=== PATIENT | male | born 1945 | race Caucasian/White ===

== ENCOUNTER 2017-01-09 17:54 | Emergency (ER) | payer MEDICARE, MEDICAID ==
[~2017-01-09] VITALS: Ht 167.6 cm; Wt 50.9 kg
[~2017-01-09 17:54] MED LIST: MULT1CAP33 PO; SIMV20TA4 PO
[2017-01-09 17:56] VITALS: BP 156/72; PULSE 106; RESP 20; O2SAT 100
--- NOTE | 2017-01-09 18:29 | DRSVH ---
PROCEDURE: X-RAY CHEST ONE VIEW, PORTABLE ([id number]) INDICATIONS: CHEST PAIN TECHNIQUE: One view of the chest was acquired. COMPARISON: None. FINDINGS: Surgical changes and devices: None. Lungs and pleura: No pleural effusions or pneumothorax. Lungs are clear. Mediastinum: Mediastinal contours appear normal. Heart size is normal. Bones and chest wall: No suspicious bony lesions. Overlying soft tissues appear unremarkable. IMPRESSION: Large lung volumes, no acute disease, source of chest pain is not seen. Dictated by: Schuyler Dexter M.D. on 01/09/2017 at 18:27 Approved by: Schuyler Dexter M.D. on 01/09/2017 at 18:28
--- NOTE | 2017-01-09 18:50 | ED.REPORT ---
HPI-Chest Pain 40 and Over Date of Service Jan 09, 2017 ED Provider: Sami Garcia DO Pt is a 71 y.o. male with a hx of COPD and HLD who presents to the ED c/o chest pain described as dull pressure and SOB onset yesterday. The pain came on while he was walking to the store yesterday. Today he has an ache in his right lateral chest. The area is just below his axilla. The pain is worse with palpation in the area. He does not have any pain when he takes a deep breath. He feels that his COPD he has been well controlled. He is concerned that maybe he cracked a rib while coughing yesterday. Nursing Notes Stated Complaint: CHEST PAIN , SOB Chief Complaint: Chest Pain Nursing Notes Reviewed: Yes Allergies: Coded Allergies: No Known Drug Allergies (Verified Allergy, Unknown, 10/24/16) Scheduled Multivitamin (Multivitamins) 1 Each Capsule 1 EACH PO DAILY Simvastatin (Simvastatin) 20 Mg Tablet 20 MG PO HS General Time Seen by MD: 18:50 Chief Complaint Chest pain, Shortness of breath Hx Obtained From: Patient Arrived By: Walk-in Sudden in Onset?: Yes Onset Occurred: Yesterday Symptom Duration: Since onset Location: : Substernal Quality: Painful, Pressure Radiation: : Does not radiate Severity: Current: Mild Risk Factors )( CAD Risk Stratification Hypertension SmokingNo Cocaine, No Family history Risk factors N/A )( TAD Risk Stratification HypertensionNo 1st degree relative, No Aortic valve disease, No Coarctation of aorta, No Moses-Danlos syndrome, No High intensity wt lifting, No Inflamm dx / vasculitis, No Loeys-Monico syndrome, No Marfan's syndrome, No Other genetic predisp, No Pre-exist aortic aneurysm, No Turners Syndrome Risk factors reviewed )( PE Risk Stratification No Coagulation Disorder, No Estrogen Medicine / BCP's, No Morrow, No Immobilization, No Malignancy, No , No , No Previous DVT, No Previous PE, No Surgery Last 60 Days, No Trauma Risk factors reviewed, No risk factors Past Medical History Past Medical History Notes: PCP: Dr. Loren Good Past Medical History COPD Chronic low back pain Chronic diarrhea Environmental allergies Reports: Hyperlipidemia Past Surgical History Colonoscopy Endoscopy hand surgery thumb amputation Family History Reports: Coronary artery disease Smoking History Former Smoker Social History Alcohol Use: Denies alcohol use Drug Use: Denies drug use Other Social History: Local resident Ambulatory Status Independent Review of Systems Constitutional: Denies: Chills Respiratory: Reports: Shortness of breath Cardiovascular: Reports: Chest pain GI: Denies: Abdominal pain Musculoskeletal: Denies: Back pain, Extremity swelling Skin: Denies Bruising Neurologic: Denies: Lightheaded, Problem walking, Slurred speech, Spinning sensation, Syncope (Near) Psychiatric: Denies: Agitation Complete sys rev & neg: except as marked. Physical Exam Initial Vital Signs Vital Signs (First) Date Time Temp Pulse Resp B/P Pulse Ox O2 Delivery O2 Flow Rate FiO2 01/09/17 17:56 36.2 106 20 156/72 100 Room Air Initial VS: Reviewed Head / Eyes: Atraumatic, Normocephalic Extremities: Vascular intact, Neuro intact Skin: Warm, Dry, No cyanosis Neurologic: Alert, Oriented, Nonfocal Psychiatric: Mood/affect normal, Behavior normal, Normal thought content General/Constitutional: Awake, Alert, No acute distress, Not toxic appearing Respiratory / Chest: Atraumatic, Breath sounds NL, Breath sounds = bilat, No respiratory distress Cardiovascular: Heart rate NL, Regular rhythm, Heart sounds NL, Peripheral circulation NL Abdomen: Atraumatic, No distention Interpretation & Diagnostics Lab Results Interpretation Result Diagram: 01/09/17191901/09/171919 Test 01/09/17 19:20 01/09/17 19:29 01/09/17 23:02 White Blood Count 8.0th/mm3 (3.8-10.1) Red Blood Count 3.80mil/mm3 (4.40-5.80) Hemoglobin 12.6g/dL (13.8-17.2) Hematocrit 37.3% (41.0-50.0) Mean Corpuscular Volume 98.2fL (81-100) Mean Corpuscular Hemoglobin 33.2pg (27.0-35.0) Mean Corpuscular Hemoglobin Concent 33.8% (32.0-37.0) Red Cell Distribution Width 12.8% (12.3-15.4) Platelet Count 234bil/L (150-400) Neutrophils (%) (Auto) 69.7% (40-74) Lymphocytes (%) (Auto) 17.2% (14-46) Monocytes (%) (Auto) 11.6% (4-12) Eosinophils (%) (Auto) 0.7% (0-5) Basophils (%) (Auto) 0.7% (0-3) Sodium Level 138mEq/L (134-144) Potassium Level 4.4mEq/L (3.5-5.2) Chloride Level 99mEq/L (97-108) Carbon Dioxide Level 28mmol/L (18-29) Blood Urea Nitrogen 14mg/dL (8-27) Creatinine 0.95mg/dL (0.76-1.27) Estimat Glomerular Filtration Rate 83mL/min (>59) Glucose Level 102mg/dL (60-99) Calcium Level 8.7mg/dL (8.5-10.1) Magnesium Level 2.0mg/dL (1.6-2.6) Total Bilirubin 0.5mg/dL (0.0-1.2) Aspartate Amino Transf (AST/SGOT) 21U/L (0-50) Alanine Aminotransferase (ALT/SGPT) 13U/L (0-44) Alkaline Phosphatase 67U/L (25-160) Total Protein 6.6g/dL (6.4-8.4) Albumin 4.0g/dL (3.4-5.0) D-Dimer 0.5mg/L (<0.50) Troponin T 0.010ug/L (0.0-0.011) General Lab Results Interp 1: Labs reviewed and NL ECG Interpretation ECG Interpretation: Qwaves V1-V2 which is present on prior ECG Time: 19:04 Interpreted by: ED physician Normal ECG Interpretation: Normal rate (78), Normal sinus rhythm X-Ray Chest Interpretation Chest Xray Interpretation: IMPRESSION: Large lung volumes, no acute disease, source of chest pain is not seen. Dictated by: Schuyler Dexter M.D. on 01/09/2017 at 18:27 Approved by: Schuyler Dexter M.D. on 01/09/2017 at 18:28 Re-Eval/Medical Decision Med Decision/Clinical Course This is a very pleasant 71-year-old male who states that he suffers with nearly daily chest pain. He has been seen in the emergency department numerous times. He has had several CAT scans to rule out pulmonary emboli and so far no pathology has been found. He does share with me that he had a recently normal stress test. The pain seems to be more musculoskeletal than anything else. The pain should first started under his sternum and then radiating to his right arm. He now has pain with range of motion of the right arm as well as palpation of the chest wall. On examination he had this tender spots. He also had some wheezing. He had no signs of aortic dissection. He had symmetric pulses. Symmetric blood pressure. He did not have a murmur. No signs of DVT either. No calf or leg edema. He was medicated with a single Aguilar and a DuoNeb. The DuoNeb was given because he had faint wheeze bilateral. He was observed for 6 hours. Serial troponins were negative. I recommended hospitalization for repeat stress testing. He declines this. He states he really like to go home. He felt much better after medications. His d-dimer 0.5 exactly. He has had CAT scans with a d-dimer size 2.1. No PE then. His d- dimer is coming down. I do not feel that he has any signs or symptoms whatsoever of pulmonary emboli with his d-dimer being right at the negative cut off no further imaging indicated. He concurs with this. He did request a short course the Aguilar for the pain to this helped more than anything. He is provided with a 10 pack of this. I will follow up closely with his primary care physician. Source of Hx: Old records Time of Eval: 18:58 Re-Evaluation/Progress Note: Physical exam performed. Pt states that he would prefer to be discharged home. Time of Eval: 22:56 Re-Evaluation/Progress Note: Pt rechecked. Pt pain has resolved. Pt would like to leave. Discussed plan for discharge, pt understands and agrees with plan. Discharge & Departure Shift Change Sign-Out Response to Therapy: Improved Primary Impression: Acute chest pain Additional Impression: COPD (chronic obstructive pulmonary disease) COPD type: COPD with acute exacerbation Qualified Code: J44.1 - Chronic obstructive pulmonary disease with (acute) exacerbation Disposition: Home Discharge Condition All VS Reviewed: Yes Condition: Stable Patient Instructions: Chest Pain (ED), Costochondritis (ED), Emphysema (ED) Additional Instructions: Your EKG, chest x-ray and heart blood tests were all normal. Your d-dimer is 0.5 and this is the lowest that it has ever been. As we discussed we did not feel that another CAT scan indicated. The pain seems to musculoskeletal in origin. I am happy the Aguilar took care of the pain. You may take 1-2 Aguilar every 6 hours as needed for pain. Even though you have had a recently normal stress test I would like you to call your doctor on Wednesday for a close follow- up.. You may need further evaluation. Do not drive or drink alcohol or consume acetaminophen tonight or while taking the Aguilar. Stay on all of your medications. Do not hesitate to return if any problems or any worsening symptoms. Come right back and the department if you have any further chest pain or any new or worrisome symptoms. Referrals: Loren Good MD (PCP) Scribe Attestation Portions of this note were transcribed by Guru Huerta. I, Dr. Garcia personally performed the history, physical exam and medical decision-making; I reviewed and confirmed the accuracy of the information in the transcribed note. Signed by : Chiki Aguero, 01/09/17 and 2301. copies to: Loren Good MD, Todd P DO Jan 09, 2017 18:50 GURU HUERTA Jan 09, 2017 18:59
[2017-01-09] MEDS ORDERED: HYDROcodone-APAP 5-325 mg Tablet PO ONE (19:00)
[2017-01-09] MEDS ORDERED: Albuterol-Ipratropium 3 mL Inhalation Solution NEB ONE (19:00)
[2017-01-09] MEDS ORDERED: predniSONE 20 mg Tablet PO ONE (19:00)
[2017-01-09 19:34] LABS: BASOPHILS % (AUTO) 0.7 % (0-3); EOSINOPHILS % (AUTO) 0.7 % (0-5); MONOCYTES % (AUTO) 11.6 % (4-12); Mean Corpuscular Hemoglobin 33.2 pg (27.0-35.0); Mean Corpuscular Volume 98.2 fL (81-100); NEUTROPHILS % (AUTO) 69.7 % (40-74); Platelet Count 234 bil/L (150-400)
[2017-01-09 19:51] VITALS: PULSE 79; RESP 14; O2SAT 96
[2017-01-09 19:57] LABS: TROPONIN T < 0.010 ug/L (0.0-0.011)
[2017-01-09 20:30] VITALS: BP 143/54; PULSE 103; RESP 18; O2SAT 97
[2017-01-09 23:46] VITALS: BP 135/52; PULSE 85; RESP 13; O2SAT 96
[2017-01-10] MEDS ORDERED: _HYDROcodone/APAP 5-325 mg Tablet PO PRN (00:50)
[2017-01-10 01:14] VITALS: BP 124/51; PULSE 85; RESP 18; O2SAT 99
== END 2017-01-10 01:15 | disposition home or self-care (01) ==
LOC: EDBD → SED 17:54
DX: R07.9 Chest pain, unspecified (principal); J44.1 Chronic obstructive pulmonary disease with (acute) exacerbation; E78.5 Hyperlipidemia, unspecified; Z87.891 Personal history of nicotine dependence
CPT/HCPCS: 36415; 71010; 80053; 83735; 84484; 85025; 85379; 93005; 94664; 99285; J7620

== ENCOUNTER 2017-03-29 04:25 | Inpatient (IN) | payer MEDICARE, MEDICAID ==
[~2017-03-29] VITALS: Ht 167.6 cm; Wt 52.0 kg
[2017-03-29] VITALS (9 sets, daily range): BP systolic 103–150; BP diastolic 55–73; PULSE 72–97; RESP 15–24; O2SAT 98–99
--- NOTE | 2017-03-29 04:29 | ED.REPORT ---
HPI-General Illness Date of Service March 29, 2017 ED Provider: Ayo Loving MD. Patient is a 72 year old male with a history of COPD who presents to the ED complaining of numbness in his left arm onset 24 hours ago. Associated symptoms include numbness that radiates down his side and up into his face, flashing lights with an aura, headache, vertiginous dizziness, feeling unbalanced, and generalized weakness, but no sided weakness. Denies visual field cuts, denies speech disturbance. He endorses some mild nausea but denies vomiting, chest pain or leg swelling. Nursing Notes Stated Complaint: NUMBNESS IN LEFT ARM,DIZZY,HEADACHE Nursing Notes Reviewed: Yes Allergies: Coded Allergies: No Known Drug Allergies (Verified Allergy, Unknown, 10/24/16) Scheduled Multivitamin (Multivitamins) 1 Each Capsule 1 EACH PO DAILY Simvastatin (Simvastatin) 20 Mg Tablet 20 MG PO HS General Time Seen by MD: 04:28 Chief Complaint Other (numbness of left arm ) Hx Obtained From: Patient Arrived By: Walk-in Sudden in Onset?: Yes Onset Occurred: Just prior to arrival Location: : Arm left Associated with: Reports: Dizziness, Headache Recent Healthcare: No recent hospitalization, Recent doctor visit Past Medical History Past Medical History Notes: PCP: Dr. Loren Good Past Medical History COPD Chronic low back pain Chronic diarrhea Environmental allergies Reports: Hyperlipidemia, Denies: Stroke, Transient ischemic attack Past Surgical History Colonoscopy Endoscopy hand surgery thumb amputation Family History Reports: Coronary artery disease Smoking History Former Smoker Social History Alcohol Use: Denies alcohol use Drug Use: Denies drug use Other Social History: Local resident Ambulatory Status Independent Review of Systems unbalanced Full Review of Systems Respiratory: Denies: Non-productive cough, Shortness of breath Cardiovascular: Denies: Chest pain, Edema GI: Denies: Nausea Musculoskeletal: Denies: Extremity swelling Neurologic: Reports: Dizziness, Headache, Numbness (of left arm ), Weakness Complete sys rev & neg: except as marked. Physical Exam Vital Signs Vital Signs Date Time Temp Pulse Resp B/P Pulse Ox O2 Delivery O2 Flow Rate FiO2 03/29/17 04:44 86 24 140/68 98 Room Air 03/29/17 04:36 36.7 97 15 142/73 99 Room Air Initial VS: Reviewed General/Constitutional: Well-developed, Well-nourished Head / Eyes: Atraumatic, Normocephalic, PERRL ENT: Mucous membranes moist, Conjunctiva normal, No scleral icterus Neck: Supple, Non-tender, Full range of motion Respiratory: Breath sounds normal, Clear to auscultation, No respiratory distress Cardiovascular: Regular rate & rhythm, Heart sounds normal, Intact distal pulses Abdomen / GI: Soft, Non-tender, No guarding, No rebound, No distention Back: No CVA tenderness Lymphatic: No lymphadenopathy Extremities: Vascular intact, Neuro intact, No swelling, No tenderness Skin: Warm, Dry, No cyanosis Neurologic: Alert, Oriented, Nonfocal Psychiatric: Mood/affect normal, Behavior normal, Normal thought content General/Constitutional: Awake, Alert Head / Eyes: Atraumatic, Normocephalic, PERRL, EOMI Respiratory / Chest: Atraumatic, Breath sounds NL, Breath sounds = bilat, No respiratory distress Cardiovascular: Heart rate NL, Regular rhythm, Heart sounds NL Abdomen: Atraumatic, Soft Tenderness/Guarding/Rebound: Positive: Tender diffuse Upper Extremities Upper Extremity / MS: Atraumatic, Full range of motion Lower Extremity / Pelvis / MS: Atraumatic, Full range of motion Skin: Atraumatic, Color NL, No rash, Warm, Dry Neurologic: Oriented X3, Speech NL, No motor deficits, No sensory deficits Psychiatric: Affect NL, Mood NL NIH Stroke Scale Level of Consciousness: Alert and responsive (0) Ask Month & Age: Both questions right (0) Open/Close Eyes/Hand Art Teacher: Performs both tasks (0) Horizontal EO Movements: None (0) Visual Garcia: No visual loss (0) Facial Palsy: Normal symmetry (0) Right Arm Motor Drift (10s): No drift 10 sec (0) Left Arm Motor Drift (10s): No drift 10 sec (0) Right Leg Motor Drift (5s): No drift 5 sec (0) Left Leg Motor Drift (5s): No drift 5 sec (0) Limb Ataxia FNF/Heel-Moses: No ataxia (0) Sensation (Arms/Legs/Face): P-prick dull but felt (1) Language Aphasia: No aphasia, normal (0) Dysarthria: No dysarthria, normal (0) Extinction/Inattention: No exctinct/inattent (0) NIHSS Score: 0 Time NIHSS Performed: 05:10 Date NIHSS Performed: March 29, 2017 Interpretation & Diagnostics Lab Results Interpretation Result Diagram: 5/15/17 0440 03/29/17 0440 Test 03/29/17 04:40 03/29/17 05:50 White Blood Count 8.6th/mm3 (3.8-10.1) Red Blood Count 4.44mil/mm3 (4.40-5.80) Hemoglobin 14.5g/dL (13.8-17.2) Hematocrit 43.1% (41.0-50.0) Mean Corpuscular Volume 97.1fL (81-100) Mean Corpuscular Hemoglobin 32.7pg (27.0-35.0) Mean Corpuscular Hemoglobin Concent 33.6% (32.0-37.0) Red Cell Distribution Width 12.7% (12.3-15.4) Platelet Count 264bil/L (150-400) Neutrophils (%) (Auto) 65.7% (40-74) Lymphocytes (%) (Auto) 20.0% (14-46) Monocytes (%) (Auto) 12.7% (4-12) Eosinophils (%) (Auto) 0.7% (0-5) Basophils (%) (Auto) 0.8% (0-3) Hold Purple Top Tube Received (Received) Prothrombin Time 10.4sec (8.1-12.5) Prothromb Time International Ratio 0.97ratio Activated Partial Thromboplast Time 24.7sec (22.8-33.0) Hold Blue Top Tube Received (Received) Sodium Level 139mEq/L (134-144) Potassium Level 4.3mEq/L (3.5-5.2) Chloride Level 99mEq/L (97-108) Carbon Dioxide Level 23mmol/L (18-29) Blood Urea Nitrogen 25mg/dL (8-27) Creatinine 1.01mg/dL (0.76-1.27) Estimat Glomerular Filtration Rate 77mL/min (>59) Glucose Level 110mg/dL (60-99) Calcium Level 9.8mg/dL (8.5-10.1) Total Bilirubin 0.6mg/dL (0.0-1.2) Aspartate Amino Transf (AST/SGOT) 28U/L (0-50) Alanine Aminotransferase (ALT/SGPT) 13U/L (0-44) Alkaline Phosphatase 77U/L (25-160) Troponin T 0.010ug/L (0.0-0.011) Total Protein 7.7g/dL (6.4-8.4) Albumin 4.3g/dL (3.4-5.0) Hold Red Top Tube Received (Received) Hold [place] Top Tube Received (Received) Hold [place] Top Tube Received (Received) Alcohols < 10mg/dL (0-10) Urine Color Yellow (YELLOW) Urine Appearance Clear (CLEAR,HAZY) Urine pH 6.0 (5.0-8.0) Urine Specific [place] 1.020 (1.003-1.035) Urine Protein Negativemg/dL (NEG,TRACE) Urine Glucose (UA) Negativemg/dL (NEGATIVE) Urine Ketones Negativemg/dL (NEGATIVE) Urine Occult Blood Negative (NEGATIVE) Urine Nitrite Negative (NEGATIVE) Urine Bilirubin Negative (NEGATIVE) Urine Urobilinogen Normalmg/dL (NORMAL) Urine Leukocyte Esterase Negative (NEGATIVE) Urine RBC 0-2/hpf (0-2) Urine WBC 0-5/hpf (0-5) Urine Epithelial Cells None/hpf (NONE-MOD) Urine Crystals None seen (NONE SEEN) Urine Bacteria None/hpf (NONE-FEW) Urine Hyaline Casts None/lpf (NONE) Urine Granular Casts None seen (NONE SEEN) Urine Waxy Casts None seen (NONE SEEN) Urine Red Blood Cell Casts None seen (NONE SEEN) Urine White Blood Cell Casts None seen (NONE SEEN) Urine Mucus None seen (None Seen) Urine Trichomonas None seen (NONE SEEN) Urine Yeast None (NONE SEEN) Urinalysis Comment None Urine Culture Reflexed Not indicated Urine Opiates Screen Negative Urine Methadone Screen Negative Urine Barbiturates Screen Negative Urine Amphetamines Screen Negative Urine Benzodiazepines Screen Negative Urine Cocaine Metabolite Screen Negative Urine Cannabinoids Screen Negative ECG Interpretation ECG Interpretation: old anteroseptal infarct Time: 05:08 Interpreted by: ED physician Normal ECG Interpretation: Normal rate (78), Normal sinus rhythm CT Head Interpretation CONCLUSION: No acute abnormality. Chronic micro vascular ischemic disease and volume loss. at 0572 Study: Head CT no contrast Interpretation / Wet Read by: Interpret - Radiologist Re-Eval/Medical Decision Med Decision/Clinical Course 72-year-old presents with twenty-four hours of hemisensory loss in the left without motor signs. He has also some vertigo and no visual field cuts. He had some bright scotomata that were spreading and very typical of migrainous aura, but other symptoms are not typical migraine. He does have some moderate headache. CT is negative. MR is pending at this time. Persistent symptoms past twenty-four hours more suggestive of TIAs and migraine. Aura type symptoms may have been precipitated by neurologic injury, rather than causal. Admitted to medicine service for further evaluation and management, MRA protocol pending. 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 I, Dr. Loving personally performed the history, physical exam and medical decision-making; I reviewed and confirmed the accuracy of the information in the transcribed note. Signed by: Chiki Brody, 03/29/17 at 0454 copies to: Loren Good MD, Christopher W MD March 29, 2017 04:28 Liliana Tomas March 29, 2017 04:37
[2017-03-29 05:06] LABS: BASOPHILS % (AUTO) 0.8 % (0-3); EOSINOPHILS % (AUTO) 0.7 % (0-5); MONOCYTES % (AUTO) 12.7 % (4-12); Mean Corpuscular Hemoglobin 32.7 pg (27.0-35.0); Mean Corpuscular Volume 97.1 fL (81-100); NEUTROPHILS % (AUTO) 65.7 % (40-74); Platelet Count 264 bil/L (150-400)
[2017-03-29 05:13] LABS: INR 0.97 ratio
[2017-03-29 06:16] LABS: APPEARANCE,URINE CLEAR (CLEAR,HAZY); COLOR,URINE YELLOW (YELLOW); OCCULT BLOOD,URINE NEGATIVE (NEGATIVE); UROBILINOGEN,URINE NORMAL (NORMAL)
--- NOTE | 2017-03-29 07:40 | DRSVH ---
PROCEDURE: CT BRAIN WITHOUT CONTRAST ([id number]) INDICATIONS: headache, left numb TECHNIQUE: Noncontrast 4.5 mm thick angled axial sections acquired from the foramen magnum to the vertex, with c oronal reformats. COMPARISON: [facility], CT, CT ANGIO CHEST PE, 10/24/2016, 18:13. FINDINGS: Image quality: Excellent. CSF spaces: Basal cisterns are patent. No extra-axial fluid collections. Ventricles are normal in size and shape. Brain: No midline shift. No intracranial masses or hemorrhage. Santana-white matter interface is norm al. Skull and face: Calvarium and visualized facial bones are intact, without suspicious lesions. Sinuses: Visualized sinuses and mastoids are clear. IMPRESSION: Normal head CT for the patient's age. No discrepancies with the pulmonary report. Dictated by: Ayo Pham M.D. on 03/29/2017 at 7:32 Approved by: Ayo Pham M.D. on 03/29/2017 at 7:33
--- NOTE | 2017-03-29 08:57 | DRSVH ---
PROCEDURE: MRI STROKE PROTOCOL ([id number]) Pre- and post-contrast brain MRI, non-contrast brain MR angiogram, pre- and postcontrast neck MR rahat ogram INDICATIONS: posterior circulation stroke sx (left hemisensory) TECHNIQUE: Brain: Noncontrast axial T1 spin echo, axial T2 fast spin echo, sagittal and axial FLAIR, coronal T2 fast spin echo, axial gradient echo, axial diffusion and ADC through the brain. After the administr ation of contrast, axial 3D VIBE of the cranial vasculature and brain. Brain MRA: Non-contrast 3-D time of flight MR angiogram, with multiple vivawwb-wopnhxfmx-neafupnyfs (MIP) reformats performed. Neck MRA: Axial and sagittal TruFISP through the neck. Coronal dynamic MR angiogram during administ ration of contrast in the arterial and venous phases, with 3-dimenstional iguskct-rubfvibdi-zigymqvug n (MIP) reformats constructed from subtraction images. COMPARISON: [facility], CT, CT BRAIN WO CON, 03/29/2017, 5:17. FINDINGS: Image quality: Excellent. BRAIN: CSF spaces: Ventricles are normal in size and shape. Basal cisterns are patent. No extra-axial flu id collections. Brain: No intracranial bleeds or mass effects. There are scattered white matter signal changes, whic h are nonspecific however statistically represent chronic microvascular ischemic disease. Santana-white matter interface is normal. There are punctate (approximately 3) areas of restricted diffusion involv ing the right posterior occipital lobe, for example image 55 series 3. Brainstem appears normal. Normal intravascular flow voids are present. No abnormal intracranial enh ancement. Skull and face: Calvarial marrow signal is normal. Orbits appear normal. Sinuses: Mastoids are clear. 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 There is d iffuse narrowing of the left A1 segment presumably congenital atresia, versus atherosclerotic narrowi ng although appears patent on source images. The flow within the paired anterior cerebral arteries is normal and symmetric. The flow within the middle cerebral arteries is normal and symmetric. The anterior communicating artery is seen. No naty noses, occlusions, or aneurysms. Posterior circulation: The visualized portions of the vertebral arteries demonstrate normal caliber, and join to form a normal appearing basilar artery. The right P2 segment demonstrates diffuse narro wing and eventual occlusion. The left posterior cerebral artery appears grossly patent NECK MR ANGIOGRAM: Carotids: Great vessels demonstrate a conventional anatomy as they arise from the aortic arch. The origins of the common carotid arteries appear patent. The calibers and courses of both common caroti d arteries are normal. 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 The left anterior and posterior communicating arteries are visualized and patent presum ably reconstituting the left middle cerebral artery (left A1 segment narrowing as above). Posterior circulation: The origins of the vertebral arteries appear patent although high-grade focal stenosis of the origin of the left vertebral artery. The origin of the right vertebral artery appear s widely patent on source images. There is diffuse atherosclerotic narrowing of the vertebral arteries bilaterally, right greater than left. Normal appearing basilar artery. Miscellaneous: Subclavian arteries appear patent. Pre-contrast images through the neck show no soft tissue abnormalities. IMPRESSION: BRAIN MRI: Multiple, punctate areas of acute ischemia involving the right occipital lobe. BRAIN MR ANGIOGRAM: Occlusion of the right P2 segment. NECK MR ANGIOGRAM: Occlusion of the left internal carotid artery extending from the proximal segment just after the bifurcation, to the intracranial segment. Reconstitution of the left middle cerebral a rtery through anterior and posterior communicating arteries as detailed above. Narrowing and occlusion of the left P2 segment of the posterior cerebral artery. High-grade focal stenosis of the origin of the left vertebral artery. Diffuse atherosclerotic narrowing of the vertebral arteries bilaterally. The estimate of stenosis included in the report of the imaging study was calculated using the NASCET method Dictated by: Tone Hdez M.D. on 03/29/2017 at 8:35 Approved by: Tone Hdez M.D. on 03/29/2017 at 8:56
[2017-03-29] MEDS ORDERED: Alum-Mag Hydrox-Simeth 30 mL Suspension PO PRN ×2 (09:45→13:05)
[2017-03-29] MEDS ORDERED: Ondansetron 2 mg/mL 2 mL Inj IVPUSH PRN ×2 (09:45→13:05)
--- NOTE | 2017-03-29 11:03 | PCM.HPMED ---
Subjective Date of Service March 29, 2017 Primary Provider: Admitting Physician: Lilliana Nguyen DO Primary Care Physician: Lroen Good MD Attending Physician: Lilliana Nguyen DO Allergies Coded Allergies: No Known Drug Allergies (Verified Allergy, Unknown, 10/24/16) PMH Social History Hx Alcohol Use: No Hx Substance Use: No Smoking Status: Former Smoker Exam Vital Signs Vital Sign - Last Date Time Temp Pulse Resp B/P Pulse Ox O2 Delivery O2 Flow Rate FiO2 03/29/17 09:45 36.8 74 16 135/72 99 Room Air Lab and Diagnostics Result Diagram: 03/29/1743903/29/17439 Assessment & Plan HPI: Patient is a 72-year-old male who presents to the hospital with the complaint of left-sided arm and leg numbness and tingling and seeing spots since yesterday. The patient stated that when he woke up yesterday morning he is having left-sided arm numbness and tingling and thought that he slept on his arm wrong however as the day progressed the numbness and tingling did not dissipate and then he started to have numbness and tingling in his left leg and he started having visual changes by seeing spots. The patient then decided to come into the emergency room. At that time CT scan and MRI were done and the patient was found to have a CVA. The patient has a history of hyperlipidemia however the patient states that he used to take simvastatin however he decided to take himself off of the statin without telling his doctor. 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 Please see HPI for pertinent positives, all other systems are negatives. Physical Exam: GEN: Patient was awake, alert, responding appropriately to questions HEENT: Pupils equal round and reactive to light, extraocular eye muscles intact , Neck soft supple, trachea midline, nomocephalic/atraumatic CV: +S1/S2, regular rate and rhythm, no murmur auscultated Respiratory: CTAB, no wheezes, rales, rhonchi GI: +bowel sounds x4, soft, compressible, nontender to palpation EXT: no clubbing, cyanosis, edema Neuro: Cranial nerves II-XII grossly intact Psych: mood and affect were appropriate Assessment and Plan 72-year-old male who presents with CVA CVA -Start aspirin 81 mg daily -Start Plavix 75 mg daily -Follow up lipid panel -10 mg of atorvastatin have been started will increase if necessary based on patient's lipid panel -Consult neurology if available -PT/OT consult -Echo pending -MR brain and neck Diet: Heart healthy DVT prophylaxis: Aspirin and Plavix Code Status: Full code Disposition: Due to the nature of the patient's current diagnosis anticipated stay is greater than 2 midnight Resuscitation Status: CPR: Attempt Resuscitation Lilliana Nguyen DO March 29, 2017 11:03
[2017-03-29] MEDS: 0.9% Sodium Chloride 1,000 ML IV SCH ×2 (11:04→22:17)
[2017-03-29] MEDS ORDERED: CHOL500051 PO (12:09)
[2017-03-29] MEDS ORDERED: hydrALAZINE 20 mg/mL Inj IVPUSH PRN (13:05)
[2017-03-29] MEDS ORDERED: Polyethylene Glycol (PEG) 17 Gm Powder PO PRN (13:05)
[2017-03-30] VITALS (8 sets, daily range): BP systolic 124–160; BP diastolic 63–74; PULSE 69–85; RESP 16–18; O2SAT 98–100
[2017-03-30 07:01] LABS: Mean Corpuscular Hemoglobin 32.6 pg (27.0-35.0); Mean Corpuscular Volume 99.1 fL (81-100)
[2017-03-30] MEDS: 0.9% Sodium Chloride 1,000 ML IV SCH ×2 (09:06→19:20)
--- NOTE | 2017-03-30 16:52 | PCM.PNMED ---
Subjective Date of Service March 30, 2017 Subjective Patient was seen and examined at bedside today. Patient denies any chest pain, shortness of breath, nausea, vomiting, diarrhea. Patient states that his paresthesias in his left arm and lower leg have improved significantly and the hallucinations and seeing of spots have improved as well. Overnight events: None Exam Vital Signs Vital Sign - Last Date Time Temp Pulse Resp B/P Pulse Ox O2 Delivery O2 Flow Rate FiO2 03/30/17 12:35 36.6 76 18 138/69 100 Room Air Intake and Output 03/29/17 03/29/17 03/30/17 Cumulative From/Thru 15:00 23:00 07:00 03/29/17 04:36 - 03/30/17 05:34 Intake Total 1575 ml 747 ml 2322 ml Output Total 945 ml 945 ml Balance 630 ml 747 ml 1377 ml Intake Oral 650 ml 650 ml IV Total 925 ml 747 ml 1672 ml Output Urine Total 945 ml 945 ml # Bowel Movements 1 1 Exam Physical Exam: GEN: Patient was awake, alert, responding appropriately to questions HEENT: Pupils equal round and reactive to light, extraocular eye muscles intact , Neck soft supple, trachea midline, nomocephalic/atraumatic CV: +S1/S2, regular rate and rhythm, no murmurs auscultated Respiratory: CTAB, no wheezes, rales, rhonchi GI: +bowel sounds x4, soft, compressible, nontender to palpation EXT: no clubbing, cyanosis, edema Neuro: Cranial nerves II-XII grossly intact, 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, 5/5 lower extremity and upper extremity strength, negative heel to umaña test, negative finger to nose test, equal sensation in the upper extremity bilaterally Psych: mood and affect were appropriate IVs and Medications Medications Reviewed: Medications were reviewed in detail Lab and Diagnostics Laboratory Tests 72 Hours Test 03/29/17 04:40 03/29/17 05:50 03/30/17 06:02 White Blood Count 8.6th/mm3 (3.8-10.1) 7.3th/mm3 (3.8-10.1) Red Blood Count 4.44mil/mm3 (4.40-5.80) 4.30mil/mm3 (4.40-5.80) Hemoglobin 14.5g/dL (13.8-17.2) 14.0g/dL (13.8-17.2) Hematocrit 43.1% (41.0-50.0) 42.6% (41.0-50.0) Mean Corpuscular Volume 97.1fL (81-100) 99.1fL (81-100) Mean Corpuscular Hemoglobin 32.7pg (27.0-35.0) 32.6pg (27.0-35.0) Mean Corpuscular Hemoglobin Concent 33.6% (32.0-37.0) 32.9% (32.0-37.0) Red Cell Distribution Width 12.7% (12.3-15.4) 13.1% (12.3-15.4) Platelet Count 264bil/L (150-400) 254bil/L (150-400) Neutrophils (%) (Auto) 65.7% (40-74) Lymphocytes (%) (Auto) 20.0% (14-46) Monocytes (%) (Auto) 12.7% (4-12) Eosinophils (%) (Auto) 0.7% (0-5) Basophils (%) (Auto) 0.8% (0-3) Hold Purple Top Tube Received (Received) Prothrombin Time 10.4sec (8.1-12.5) Prothromb Time International Ratio 0.97ratio Activated Partial Thromboplast Time 24.7sec (22.8-33.0) Hold Blue Top Tube Received (Received) Sodium Level 139mEq/L (134-144) 141mEq/L (134-144) Potassium Level 4.3mEq/L (3.5-5.2) 4.4mEq/L (3.5-5.2) Chloride Level 99mEq/L (97-108) 103mEq/L (97-108) Carbon Dioxide Level 23mmol/L (18-29) 27mmol/L (18-29) Blood Urea Nitrogen 25mg/dL (8-27) 20mg/dL (8-27) Creatinine 1.01mg/dL (0.76-1.27) 0.79mg/dL (0.76-1.27) Estimat Glomerular Filtration Rate 77mL/min (>59) 102mL/min (>59) Glucose Level 110mg/dL (60-99) 95mg/dL (60-99) Hemoglobin A1c 5.0% (4.8-5.6) Calcium Level 9.8mg/dL (8.5-10.1) 9.3mg/dL (8.5-10.1) Total Bilirubin 0.6mg/dL (0.0-1.2) 0.6mg/dL (0.0-1.2) Aspartate Amino Transf (AST/SGOT) 28U/L (0-50) 22U/L (0-50) Alanine Aminotransferase (ALT/SGPT) 13U/L (0-44) 10U/L (0-44) Alkaline Phosphatase 77U/L (25-160) 72U/L (25-160) Troponin T 0.010ug/L (0.0-0.011) Total Protein 7.7g/dL (6.4-8.4) 7.0g/dL (6.4-8.4) Albumin 4.3g/dL (3.4-5.0) 4.1g/dL (3.4-5.0) Triglycerides Level 63mg/dL (0-149) Cholesterol Level 252mg/dL (100-199) LDL Cholesterol, Calculated 188.400mg/dL (0-99) VLDL Cholesterol 12.600mg/dL HDL Cholesterol 51mg/dL (>39) Cholesterol/HDL Ratio 4.94 (0.0-4.4) Hold Red Top Tube Received (Received) Hold [place] Top Tube Received (Received) Hold [place] Top Tube Received (Received) Alcohols < 10mg/dL (0-10) Urine Color Yellow (YELLOW) Urine Appearance Clear (CLEAR,HAZY) Urine pH 6.0 (5.0-8.0) Urine Specific [place] 1.020 (1.003-1.035) Urine Protein Negativemg/dL (NEG,TRACE) Urine Glucose (UA) Negativemg/dL (NEGATIVE) Urine Ketones Negativemg/dL (NEGATIVE) Urine Occult Blood Negative (NEGATIVE) Urine Nitrite Negative (NEGATIVE) Urine Bilirubin Negative (NEGATIVE) Urine Urobilinogen Normalmg/dL (NORMAL) Urine Leukocyte Esterase Negative (NEGATIVE) Urine RBC 0-2/hpf (0-2) Urine WBC 0-5/hpf (0-5) Urine Epithelial Cells None/hpf (NONE-MOD) Urine Crystals None seen (NONE SEEN) Urine Bacteria None/hpf (NONE-FEW) Urine Hyaline Casts None/lpf (NONE) Urine Granular Casts None seen (NONE SEEN) Urine Waxy Casts None seen (NONE SEEN) Urine Red Blood Cell Casts None seen (NONE SEEN) Urine White Blood Cell Casts None seen (NONE SEEN) Urine Mucus None seen (None Seen) Urine Trichomonas None seen (NONE SEEN) Urine Yeast None (NONE SEEN) Urinalysis Comment None Urine Culture Reflexed Not indicated Urine Opiates Screen Negative Urine Methadone Screen Negative Urine Barbiturates Screen Negative Urine Amphetamines Screen Negative Urine Benzodiazepines Screen Negative Urine Cocaine Metabolite Screen Negative Urine Cannabinoids Screen Negative Result Diagram: 03/30/1760103/30/17601 X-Rays, CTs and MRIs PROCEDURE: MRI STROKE PROTOCOL ([id number]) Pre- and post-contrast brain MRI, non-contrast brain MR angiogram, pre- and postcontrast neck MR angiogram IMPRESSION: BRAIN MRI: Multiple, punctate areas of acute ischemia involving the right occipital lobe. BRAIN MR ANGIOGRAM: Occlusion of the right P2 segment. NECK MR ANGIOGRAM: Occlusion of the left internal carotid artery extending from the proximal segment just after the bifurcation, to the intracranial segment. Reconstitution of the left middle cerebral artery through anterior and posterior communicating arteries as detailed above. Narrowing and occlusion of the left P2 segment of the posterior cerebral artery. High-grade focal stenosis of the origin of the left vertebral artery. Diffuse atherosclerotic narrowing of the vertebral arteries bilaterally. The estimate of stenosis included in the report of the imaging study was calculated using the NASCET method Dictated by: Tone Hdez M.D. on 03/29/2017 at 8:35 Approved by: Tone Hdez M.D. on 03/29/2017 at 8:56 Assessment & Plan 72-year-old male who presents with CVA CVA most likely secondary to hyperlipidemia -Start aspirin 81 mg daily -Start Plavix 75 mg daily - Atorvastatin 80 mg daily at bedtime -Consult neurology (Dr. Mulligan) -PT/OT consult -Echo pending -MR brain and neck (completed) Hyperlipidemia -Total cholesterol 252, LDL cholesterol 188 -Continue atorvastatin 80 mg daily at bedtime -We will monitor the patient for adverse side effects from the medication Diet: Heart healthy DVT prophylaxis: Aspirin and Plavix Code Status: Full code Disposition: The patient was discussed with Dr. Mulligan today who states that the patient at this point should only need aspirin and Plavix for the next 3 months and then be decreased only to aspirin. She will come and see the patient later today. The patient seems to be stable and pending the results of his echo the patient should be able to be discharged home tomorrow. Resuscitation Status: CPR: Attempt Resuscitation Lilliana Nguyen DO March 30, 2017 16:52
--- NOTE | 2017-03-30 16:54 | DRSVH ---
[facility] [address] [place] [address] Echocardiogram Report Name: BILL NGUYEN RStudy Date: 03/30/2017 Height: 66 in Hospital Exam Location: [facility] Weight: 109 lb Gender: Male BSA: 1.5 m2 : 1945 Age: 72 yrs BP: 103/55 mmHg Reason For Study: CVA Ordering Physician: Performed By: Mulu Freedman Interpretation Summary The left ventricle is normal in size. There is no LV thrombus. The ejection fraction is estimated to be 60-65%. The right ventricle is normal in size and function. There is discrete nodular, calcified thickening of the non- coronary cusp. It is not mobile. It is not pedunculated. There is no aortic valve stenosis. No aortic regurgitation is present. The ascending aorta is mildly enlarged. Procedure: A two-dimensional transthoracic echocardiogram with color flow and Doppler was performed. The study quality was technically adequate. There is no prior echocardiogram noted for this patient. The patient was in normal sinus rhythm during the exam. Left Ventricle: The left ventricle is normal in size. Proximal septal thickening is noted. There is no echo evidence for significant left ventricular outflow tract obstruction. A false chord is noted (normal variant). There is no thrombus. The ejection fraction is estimated to be 60- 65%. There are no focal wall motion abnormalities. Spectral Doppler of the mitral valve is reversed, with an E/A wave ratio < 1.0. Right Ventricle: The right ventricle is normal in size and function. Atria: Both atria are normal in size. There is no Doppler evidence for an interatrial shunt. Mitral Valve: The mitral valve leaflets are slightly calcified. The mitral valve leaflets appear thickened, but open well. There is mild mitral annular calcification. There is mild mitral regurgitation. Aortic Valve: There is discrete nodular thickening of the non- coronary cusp. The aortic valve is trileaflet. The aortic valve opens well. There is no aortic valve stenosis. No aortic regurgitation is present. Tricuspid Valve: The tricuspid valve is normal in structure and function. There is mild tricuspid regurgitation. The right ventricular systolic pressure is estimated at 23 mmHg assuming a right atrial pressure of 3 mm Hg. Pulmonic Valve: The pulmonic valve is not well seen, but is grossly normal. There is trace pulmonic regurgitation. Great Vessels: The aortic root is normal size. The ascending aorta is mildly enlarged. The aortic arch is normal in size. The IVC is of normal diameter and collapses greater than 50% with a sniff. This suggests a low right atrial pressure of 3 mm Hg. Pericardium/ Pleura There is no pericardial effusion. MMode/2D Measurements & Calculations LVIDd: 4.3 cm RA long axis LVOT diam: 2.3 cm LVIDs: 2.2 cm LA A2 area: 14.3 cm Ao root diam FS: 49.0 % LA A4 area: 12.1 cm RA area EPSS: 0.38 cm LA length (vol) Aortic Jxn: 2.8 cm IVSd: 0.64 cm : 10.9 cm asc Aorta Diam LVPWd: 0.81 cm LA vol: 40.6 ml RA vol LA vol index : 23.4 ml Ao Arch Diam (Prox RA Trans): 3.0 cm : 15.2 mm2 IVC diam: 1.2 cm LV johnson. diameter/BSA LV sys. diameter/BSA RVD1 (basal) (cm/m^2): 2.8 (cm/m^2): 1.4 Doppler Measurements & Calculations Ao V2 max MV E max marco a MV E/A: 0.77 TR max marco a : 113.7 cm/sec : 67.7 cm/sec Med Peak E' Marco A : 222.5 cm/sec Ao max PG MV A max marco a TR max PG : 5.2 mmHg : 87.4 cm/sec E/E' med: 9.1 : 19.8 mmHg Ao mean PG MV P1/2t: 84.7 msec MV A dur: 0.12 sec PA V2 max : 92.3 cm/sec LVOT Max Marco A PA mean PG : 83.2 cm/sec PA Accel Time CHANELLE(I,D): 3.2 cm : 0.13 sec sev ratio MV dec time MV P1/2t max marco a Ao V2 mean LV V1 max PG : 0.29 sec : 79.3 cm/sec MVA(P1/2t): 2.6 cm2 Ao V2 VTI: 26.8 cm LV V1 VTI CHANELLE(V,D): 3.0 cm2 : 20.6 cm PA V2 mean CHANELLE indexed to BSA : 67.8 cm/sec (cm^2/m^2): 2.0 Reading Physician:PM
--- NOTE | 2017-03-30 23:07 | CONS ---
[address] [address] CONSULTATION REPORT PATIENT: BILL NGUYEN : 1945 MR#: [id number] ADMIT: 03/29/2017 JOB ID: [id number] DATE OF SERVICE: 03/30/2017 REQUESTING P HYPERTENSION: Lilliana Nguyen D.O. for acute stroke. HISTORY OF PRESENT ILLNESS: The patient is a 72-year-old gentleman with acute onset of left-sided paresthesias and vision changes on March 28. At that time, he thought potentially his blood sugar was low, so he drank some Power Aid and ate some cookies and symptoms seemed to improve, however, the returned. He describes both arm and leg and possibly facial involvement with paresthesias. He did not report any weakness. He states that the vision change started with an enlarging central dark space when a central light like lightning occurred. This seemed to come and go. Although he was concerned about his symptoms, he did not seek urgent medical attention and instead called his sister before she left for work at about 1 a.m. on Wednesday. He was transported to [facility] where he was appropriately evaluated for acute stroke. Given the length of time since the onset of symptoms, he was deemed not a candidate for tPA. Subsequent MRI of the brain with MR angiogram revealed evidence of punctate diffusion-weighted abnormalities in the right occipital lobe consistent with acute stroke. MR angiography showed occlusion of the left internal carotid artery and 50% stenosis on the right. The patient admits that he was supposed to be taking Plavix and simvastatin but stopped doing both due to cost. He is followed by Dr. Toya Daugherty as an outpatient for cardiology. 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 At some point, that was to be stented. He also reports cataract surgery for the right eye and a severe cataract over the left eye that he has not yet had surgery for. He states that friends talked him out of having a stent put in. He has not returned for cataract surgery. The patient reports a nearly 40 pound weight loss, which is unexplained. He has chronic diarrhea. He has had a colonoscopy which he reports was negative, but he has not been seen by a cane feeder. Although his primary care doctor, Dr. Loren Good, recommended a healthy diet, he reports difficulty doing so due to his current living arrangement where he only is supposed to cook in a microwave. He admits to a poor diet as a result. He has not been physically active because of the diarrhea problem. He states that he cannot be that far from the toilet. He reports that his primary care physician told him to eat better and that was the cause of his diarrhea. Echocardiogram was completed and found to show no abnormalities. The patient's cholesterol levels were elevated with LDL cholesterol 188, HDL 51. Glucose was slightly elevated at 110, otherwise CBC, comprehensive metabolic panel, UA, coagulation profile and tox screen were all negative. Since being admitted to the hospital, the patient has been experiencing bizarre hallucinations that are all visual. He has seen a woman in a [employer] dot dress dancing. He has seen lines of Packmen. He has seen a parrot that begins small and enlarges. Some of these are frightening, making him not want to close his eyes. They have become less severe and less persistent. He has not closed one eye or the other to see if they persist, but they seem to persist with his eyes closed as well. He has never heard any one speak to him and reports that he has never had hallucinations previously. Dr. Nguyen requested a neurology consultation based on the imaging study results particularly the high-grade stenosis noted in multiple vessels and the complete occlusion of the left internal carotid artery. MR angiogram showed, in addition, high-grade stenosis at the origin of the left vertebral artery and diffuse atherosclerotic narrowing in multiple vessels. PAST MEDICAL HISTORY: As above. Also, chronic low back pain, chronic diarrhea with weight lost, elemental allergies, hyperlipidemia, no history of prior stroke. SOCIAL HISTORY: No drugs, alcohol or substance abuse but past substance abuse and past cigarette smoking, none currently. FAMILY HISTORY: Coronary artery disease. REVIEW OF SYSTEMS: Patient continues to have paresthesias and resolving hallucinations. All other systems were reviewed and reported as negative. DRUG ALLERGIES: No known drug allergies. MEDICATIONS: 1. Lisinopril 5 mg. 2. IV fluids. 3. 81 mg aspirin. 4. 75 mg Plavix. 5. Vitamin D 5000 international units. 6. Multivitamins. 7. Acetaminophen. 8. Labetalol. 9. Hydralazine. 10. Atorvastatin 40 mg. 11. Plus p.r.n.'s. PHYSICAL EXAMINATION: The patient is pleasant and cooperative with extensive facial hair. Vital signs: Blood pressure 131/66, respiratory rate 18, pulse 78, temperature afebrile, pulse oximetry 98% on room air. Telemetry shows sinus rhythm. Head: Normocephalic, atraumatic. No evidence of carotid bruits. Lungs clear to auscultation. Cardiac: Regular rate and rhythm. S1, S2 present. No edema or lesions noted in the lower extremities. NEUROLOGIC EXAMINATION: Patient is alert and oriented x3, with language and speech intact and fluent. No evidence of memory impairment, recent and remote memory. Fund of knowledge evaluated and found to be intact. Mood is euthymic. Cranial nerves: Pupils are equally reactive to light and accommodation. Extraocular movements are intact. Funduscopic examination shows dense cataract in the left eye. EOL in right eye. No facial asymmetry. Sensation shows decreased pinprick on the left side of his face compared to the right. No facial asymmetry. Tongue midline. Palate raises symmetrically. SCM and shoulder shrug as well as hearing appear to be intact. Motor strength: Intact upper and lower extremities. No atrophy or extra movement. No pronator drift is noted. Deep tendon reflexes: 2+ throughout with plantar reflex extensor on the left. Sensation: Diminished to pinprick on the left upper and lower extremity with patchy loss. Intact on the right with intact vibratory sensation and position sense. Coordination: Intact to [id number], skyl-io-[id number], rapid alternating movement in the upper and lower extremity. Tone: Intact upper and lower extremities. Gait is deferred. The patient has walked with physical therapy without difficulty. No balance difficulty noted and no loss of balance. LABORATORIES AND IMAGING STUDIES: As above. Please see report in the chart for full detail. ASSESSMENT AND RECOMMENDATION: The patient is a 72-year-old gentleman with acute stroke in the right hemisphere. The location of the diffusion-weighted abnormalities in the right occipital lobe are likely responsible for the patient's visual phenomenon. This is probably made more prominent by his severe cataract in the left eye. They seem to be resolving and do not require treatment or intervention. Reassurance was provided. Likely the patient's stroke is due to discontinuation of antiplatelet medications and lipid lowering drugs. He did this apparently due to cost. The patient also has multiple occluded intracranial and extracranial vessels and stenotic extracranial vessels. This is likely due to atherosclerotic disease which is also being treated by his kiln operator helper with gastric vessel stenosis apparently appreciated. The patient was noncompliant with medications which likely led to his stroke. He is now on dual antiplatelet therapy with aspirin and Plavix which can be continued safely for three months [facility] regarding aggressive medical management versus intracranial stenting. After three months, I would recommend continuing only one antiplatelet medication. I will defer to Dr. Daugherty regarding whether to continue Plavix or aspirin or both if needed. Given the patient's difficulty paying for medications, it will be important to take that into consideration as well. The patient should continue also on maximum dose atorvastatin at 80 mg. He does not appear to have had any side effects or problems from treatment, only financial issues. The patient is deconditioned and is also experiencing diarrhea. If the patient does have an underlying cancer, that would predispose him to additional strokes. I believe a nutrition consultation would be useful for this gentleman if it could be done during his hospitalization as well as social work to see if there are ways to help this gentleman to have a healthier diet, exercise and get the appropriate health care and medications that he needs. Social work consultation would be useful. There is no need to consider treatment for the occluded vessel. Treatment is focused on preventing occlusion of additional lesions. He was advised to call 911 if he has another acute neurologic change. He was also advised to follow up with his laborer cement gun placing for cataract surgery on the left eye after discharge. The patient should follow up with his primary care physician for management of medical problems and with Dr. Daugherty, his kiln operator helper. I will be glad to see him in the clinic, however, no urgent appointments are needed or required. The wait time is extensive and next available is appropriate. Thank you for this consultation. Will sign off for now. Please call if needed. BELKYS
[2017-03-31] VITALS (12 sets, daily range): BP systolic 117–169; BP diastolic 42–79; PULSE 68–96; RESP 16–18; O2SAT 98–100
[2017-03-31] MEDS: 0.9% Sodium Chloride 1,000 ML IV SCH ×3 (05:33→17:36)
[2017-03-31] MEDS: Labetalol 5 mg/mL 4 mL Inj IVPUSH PRN (13:18)
--- NOTE | 2017-03-31 14:17 | PCM.PNMED ---
Subjective Date of Service March 31, 2017 Subjective Patient was seen and examined at bedside today. Patient denies any chest pain, shortness of breath, nausea, vomiting, diarrhea. Patient states that he was feeling better yesterday however after putting on the SCDs this morning he feels that some of his symptoms have returned. The patient states that he is now once again seeing spots and having cloudy vision and complains of a headache. Overnight events: None Exam Vital Signs Vital Sign - Last Date Time Temp Pulse Resp B/P Pulse Ox O2 Delivery O2 Flow Rate FiO2 03/31/17 13:37 96 151/69 Room Air 03/31/17 13:09 36.8 18 99 Intake and Output 03/30/17 03/30/17 03/31/17 Cumulative From/Thru 15:00 23:00 07:00 03/29/17 04:36 - 03/31/17 05:40 Intake Total 100 ml 950 ml 2597 ml 5969 ml Output Total 1825 ml 800 ml 3570 ml Balance 100 ml -875 ml 1797 ml 2399 ml Intake Oral 100 ml 950 ml 313 ml 2013 ml IV Total 2284 ml 3956 ml Output Urine Total 1825 ml 800 ml 3570 ml # Voids 3 3 # Bowel Movements 2 4 0 7 Exam Physical Exam: GEN: Patient was awake, alert, responding appropriately to questions HEENT: Pupils equal round and reactive to light, extraocular eye muscles intact , Neck soft supple, trachea midline, nomocephalic/atraumatic CV: +S1/S2, regular rate and rhythm, no murmurs auscultated Respiratory: CTAB, no wheezes, rales, rhonchi GI: +bowel sounds x4, soft, compressible, nontender to palpation EXT: no clubbing, cyanosis, edema Neuro: Cranial nerves II-XII grossly intact Psych: mood and affect were appropriate IVs and Medications Medications Reviewed: Medications were reviewed in detail Lab and Diagnostics Result Diagram: 03/30/1760103/30/17601 X-Rays, CTs and MRIs PROCEDURE: MRI STROKE PROTOCOL ([id number]) Pre- and post-contrast brain MRI, non-contrast brain MR angiogram, pre- and postcontrast neck MR angiogram IMPRESSION: BRAIN MRI: Multiple, punctate areas of acute ischemia involving the right occipital lobe. BRAIN MR ANGIOGRAM: Occlusion of the right P2 segment. NECK MR ANGIOGRAM: Occlusion of the left internal carotid artery extending from the proximal segment just after the bifurcation, to the intracranial segment. Reconstitution of the left middle cerebral artery through anterior and posterior communicating arteries as detailed above. Narrowing and occlusion of the left P2 segment of the posterior cerebral artery. High-grade focal stenosis of the origin of the left vertebral artery. Diffuse atherosclerotic narrowing of the vertebral arteries bilaterally. The estimate of stenosis included in the report of the imaging study was calculated using the NASCET method Dictated by: Tone Hdez M.D. on 03/29/2017 at 8:35 Approved by: Tone Hdez M.D. on 03/29/2017 at 8:56 Assessment & Plan 72-year-old male who presents with CVA CVA most likely secondary to hyperlipidemia -Continue aspirin 81 mg daily -Continue Plavix 75 mg daily - Continue Atorvastatin 80 mg daily at bedtime -Consult neurology (Dr. Mulligan) -PT/OT consult -Echo: EF 60-65%, mild aortic enlargement -MR brain and neck (completed) Hypertension - Increase lisinopril from 10mg QD to 20mg QD - Continue tight blood pressure control - One dose of IV labetolol was given today -Continue to monitor q2 hours for now Hyperlipidemia -Total cholesterol 252, LDL cholesterol 188 -Continue atorvastatin 80 mg daily at bedtime -We will monitor the patient for adverse side effects from the medication Diet: Heart healthy DVT prophylaxis: Aspirin and Plavix Code Status: Full code Disposition: The patient was scheduled to go home today and to follow-up with his primary care physician as well as his cone classifier tender (Dr. Daugherty) and Dr. Mulligan with 3 months of aspirin and Plavix therapy. However today the patient started to have new onset symptoms that seem to be stroke related. The patient is being sent for repeat MRI of the brain and will continue with medical management as recommended by Dr. Mulligan. The case was discussed extensively with Dr. Mulligan today. VTE Mechanical Devices: Intermittant Pneumatic CD Resuscitation Status: CPR: Attempt Resuscitation Time spent 1 hour Lilliana Nguyen DO March 31, 2017 14:17
--- NOTE | 2017-03-31 14:31 | DRSVH ---
PROCEDURE: MRI BRAIN WITHOUT CONTRAST ([id number]) INDICATIONS: New CVA TECHNIQUE: Non-contrast axial T1 spin echo, axial T2 fast spin echo, sagittal and axial FLAIR, coronal T2 fast s pin echo, axial gradient echo, axial diffusion and ADC through the brain. COMPARISON: [facility], MR, MR STROKE PROTOCOL, 03/29/2017, 7:53. FINDINGS: Image quality: Excellent. CSF spaces: Ventricles appear symmetric in size and shape. Basal cisterns are patent. No extra-axi al fluid collections. Brain: No intracranial bleeds or mass effects. There is cerebral volume loss for age. There are pe riventricular and deep white matter chronic small vessel ischemic changes. Brainstem appears normal. Punctate foci of restricted diffusion noted in the right occipital lobe compatible with acute/subacu te infarcts. New, small, punctate focus of restricted effusion is noted posterior and inferior margin of the right occipital lobe compatible with an infarct which has occurred in the interval since prio r MRI. Old left occipital subcortical white matter lacunar infarct is noted. Old, small, posterior le ft occipital cortical infarct is noted. Normal intravascular flow voids are present. Skull and face: Calvarial bone marrow is normal in signal. Orbits are normal. Sinuses: Sinuses and mastoids are clear. IMPRESSION: 1. New, small, but punctate acute right occipital infarct. 2. Punctate foci of restricted diffusion in the right occipital lobe stable compared to prior height compatible with subacute infarcts. 3. Old, small, left occipital infarcts. 4. Mild, diffuse volume loss. 5. Mild periventricular and subcortical white matter, microvascular ischemic changes. 6. No intracranial hemorrhage. Dictated by: Marylou Rojas MD, PhD on 03/31/2017 at 14:13 Approved by: Marylou Rojas MD, PhD on 03/31/2017 at 14:30
[2017-04-01] VITALS (17 sets, daily range): BP systolic 117–149; BP diastolic 53–74; PULSE 66–80; RESP 18–20; O2SAT 93–99
[2017-04-01] MEDS: 0.9% Sodium Chloride 1,000 ML IV SCH (04:43)
[2017-04-01] MEDS: Labetalol 5 mg/mL 4 mL Inj IVPUSH PRN ×4 (12:45→17:15)
--- NOTE | 2017-04-01 21:26 | PCM.PNMED ---
Subjective Date of Service April 01, 2017 Subjective The patient complains of some visual hallucinations such as seen a pack men type character along with the Ismael Brothers characters and the lady that we could not dress he states that he knows that these are visual hallucinations and that they go in and out of his visual field especially on the left side. Patient also complains of a headache feeling as if a robot has scleral limbus and a squeezing around his skull in the fingers and the pressures being felt elsewhere in the back of the skull. The patient has no other new significant complaints. Exam Vital Signs Vital Sign - Last Date Time Temp Pulse Resp B/P Pulse Ox O2 Delivery O2 Flow Rate FiO2 04/01/17 18:00 68 121/60 04/01/17 17:05 36.8 20 93 Room Air Intake and Output 03/31/17 03/31/17 04/01/17 Cumulative From/Thru 15:00 23:00 07:00 03/29/17 04:36 - 04/01/17 06:50 Intake Total 1836 ml 1897 ml 9702 ml Output Total 1450 ml 1900 ml 6920 ml Balance 386 ml -3 ml 2782 ml Intake Oral 870 ml 700 ml 3583 ml IV Total 966 ml 1197 ml 6119 ml Output Urine Total 1450 ml 1900 ml 6920 ml # Voids 3 # Bowel Movements 1 8 Exam General: The patient is sitting up in bed in no apparent distress. HEENT: Head is atraumatic and normocephalic. Eyes: Pupils are equally round and reactive to light and accommodation. Extraocular muscles are intact. Sclera are white, anicteric. Subconjunctival mucosa is pink. Ears and nose are unremarkable. Oropharynx: There are no mucosal lesions, there is no thrush , there is no pharyngitis. Neck: Is supple, there are no nodes, or masses or tenderness. Chest: Is clear to auscultation and percussion. There are no rales, rhonchi, wheezes or rubs. Heart: Rate, rhythm is regular. There is no murmur, rub or gallop. Abdomen: Good bowel sounds are present. Abdomen is soft, nontender, no organomegaly or masses were appreciated. Extremities: Are symmetrical and well perfused. There is no edema, there is no cellulitis, no rash. Neurologic: There are no focal neurological deficits. Cranial nerves II through XII are intact. There are no sensory or motor deficits. Psychiatric: Patients mood is calm and he shows no sign of agitation. Genital: Deferred Rectal: Deferred Lab and Diagnostics Result Diagram: 03/30/1760103/30/17601 X-Rays, CTs and MRIs PROCEDURE: MRI STROKE PROTOCOL ([id number]) Pre- and post-contrast brain MRI, non-contrast brain MR angiogram, pre- and postcontrast neck MR angiogram IMPRESSION: BRAIN MRI: Multiple, punctate areas of acute ischemia involving the right occipital lobe. BRAIN MR ANGIOGRAM: Occlusion of the right P2 segment. NECK MR ANGIOGRAM: Occlusion of the left internal carotid artery extending from the proximal segment just after the bifurcation, to the intracranial segment. Reconstitution of the left middle cerebral artery through anterior and posterior communicating arteries as detailed above. Narrowing and occlusion of the left P2 segment of the posterior cerebral artery. High-grade focal stenosis of the origin of the left vertebral artery. Diffuse atherosclerotic narrowing of the vertebral arteries bilaterally. The estimate of stenosis included in the report of the imaging study was calculated using the NASCET method Dictated by: Tone Hdez M.D. on 03/29/2017 at 8:35 Approved by: Tone Hdez M.D. on 03/29/2017 at 8:56 PROCEDURE: MRI BRAIN WITHOUT CONTRAST ([id number]) INDICATIONS: New CVA TECHNIQUE: Non-contrast axial T1 spin echo, axial T2 fast spin echo, sagittal and axial FLAIR, coronal T2 fast spin echo, axial gradient echo, axial diffusion and ADC through the brain. COMPARISON: [facility], , MR STROKE PROTOCOL, 03/29/2017, 7:53. FINDINGS: Image quality: Excellent. CSF spaces: Ventricles appear symmetric in size and shape. Basal cisterns are patent. No extra-axial fluid collections. Brain: No intracranial bleeds or mass effects. There is cerebral volume loss for age. There are periventricular and deep white matter chronic small vessel ischemic changes. Brainstem appears normal. Punctate foci of restricted diffusion noted in the right occipital lobe compatible with acute/subacute infarcts. New, small, punctate focus of restricted effusion is noted posterior and inferior margin of the right occipital lobe compatible with an infarct which has occurred in the interval since prior MRI. Old left occipital subcortical white matter lacunar infarct is noted. Old, small, posterior left occipital cortical infarct is noted. Normal intravascular flow voids are present. Skull and face: Calvarial bone marrow is normal in signal. Orbits are normal. Sinuses: Sinuses and mastoids are clear. IMPRESSION: 1. New, small, but punctate acute right occipital infarct. 2. Punctate foci of restricted diffusion in the right occipital lobe stable compared to prior height compatible with subacute infarcts. 3. Old, small, left occipital infarcts. 4. Mild, diffuse volume loss. 5. Mild periventricular and subcortical white matter, microvascular ischemic changes. 6. No intracranial hemorrhage. Dictated by: Marylou Rojas MD, PhD on 03/31/2017 at 14:13 Approved by: Marylou Rojas MD, PhD on 03/31/2017 at 14:30 Cardiac Echo Impressions Echocardiogram Report Name: BILL NGUYEN RStudy Date: 03/30/2017 Height: 66 in Hospital Exam Location: [facility] Weight: 109 lb Gender: Male BSA: 1.5 m2 : 1945 Age: 72 yrs BP: 103/55 mmHg Reason For Study: CVA Ordering Physician: Performed By: Mulu Freedman Interpretation Summary The left ventricle is normal in size. There is no LV thrombus. The ejection fraction is estimated to be 60-65%. The right ventricle is normal in size and function. There is discrete nodular, calcified thickening of the non- coronary cusp. It is not mobile. It is not pedunculated. There is no aortic valve stenosis. No aortic regurgitation is present. The ascending aorta is mildly enlarged. Assessment & Plan 72-year-old male who presents with CVA CVA most likely secondary to hyperlipidemia and noncompliance with medications. Patient has had a new CVA just as of yesterday. -Continue aspirin 81 mg daily -Continue Plavix 75 mg daily - Continue Atorvastatin 80 mg daily at bedtime -Consult with neurologist Dr. Mulligan, her time and expertise is appreciated. We will follow recommendations. -PT/OT consult -Echo: EF 60-65%, mild aortic enlargement -MR brain and neck (completed) yesterday shows a new CVA in the right occipital lobe Hypertension - We have increased lisinopril from 10mg QD to 20mg QD and will continue. - Continue tight blood pressure control - One dose of IV labetolol was given yesterday -Continue to monitor q4 hours for now Hyperlipidemia -Total cholesterol 252, LDL cholesterol 188 -Continue atorvastatin 80 mg daily at bedtime -We will monitor the patient for adverse side effects from the medication Diet: Heart healthy Disposition: The patient was scheduled to go home yesterday and to follow-up with his primary care physician as well as his test examiner (Dr. Daugherty) and Dr. Mulligan with 3 months of aspirin and Plavix therapy. However, yesterday the patient started to have new onset symptoms that seem to be stroke related. The patient underwent a repeat MRI which showed a new right occipital infarct. We will reconsult speech therapy, occupational therapy and physical therapy. Pain Evaluation: Adequate Pain Control VTE Prophylaxis: Sub-Q Heparin (Unfractionated) VTE Mechanical Devices: Venous Foot Pump Resuscitation Status: CPR: Attempt Resuscitation Jabier José MD April 01, 2017 21:26 Jabier José MD April 01, 2017 21:26
[2017-04-01] MEDS: Heparin 5,000 Unit/mL Inj SUBQ SCH (21:56)
[2017-04-02] VITALS (9 sets, daily range): BP systolic 112–156; BP diastolic 51–70; PULSE 64–76; RESP 14–20; O2SAT 98–100
[2017-04-02 05:34] LABS: EOSINOPHILS % (AUTO) 6.3 % (0-5); Mean Corpuscular Volume 97.2 fL (81-100); NEUTROPHILS % (AUTO) 54.2 % (40-74); Platelet Count 253 bil/L (150-400)
[2017-04-02 05:54] LABS: Magnesium 2.1 mg/dL (1.6-2.6)
[2017-04-02] MEDS: Heparin 5,000 Unit/mL Inj SUBQ SCH ×2 (09:51→20:42)
[2017-04-02] MEDS: 0.9% Sodium Chloride 1,000 ML IV SCH (22:36)
--- NOTE | 2017-04-02 22:44 | PCM.PNMED ---
Subjective Date of Service April 02, 2017 Subjective Patient does not feel well and is worried that his blood pressure was 156/70 this morning. I pointed out to him that this was before he received his morning blood pressure medications. Patient has no new specific complaints. He states the visual hallucinations are still present but not as severe and he has not seen the woman in the park about address that was so close to his face since yesterday. He like in the visual hallucinations to when he took LSD as a younger man. However, the visual hallucinations with his current situation are not as pleasant. Exam Vital Signs Vital Sign - Last Date Time Temp Pulse Resp B/P Pulse Ox O2 Delivery O2 Flow Rate FiO2 04/02/17 20:27 36.6 64 14 112/51 Room Air 04/02/17 16:58 99 Intake and Output 04/01/17 04/01/17 04/02/17 Cumulative From/Thru 15:00 23:00 07:00 03/29/17 04:36 - 04/02/17 06:44 Intake Total 753 ml 786 ml 500 ml 11247 ml Output Total 575 ml 1175 ml 8670 ml Balance 753 ml 211 ml -675 ml 3071 ml Intake Oral 786 ml 500 ml 4869 ml IV Total 753 ml 6872 ml Output Urine Total 575 ml 1175 ml 8670 ml # Voids 3 # Bowel Movements 0 8 Exam General: The patient is sitting up in bed in no apparent distress. HEENT: Head is atraumatic and normocephalic. Eyes: Pupils are equally round and reactive to light and accommodation. Extraocular muscles are intact. Sclera are white, anicteric. Subconjunctival mucosa is pink. Ears and nose are unremarkable. Oropharynx: There are no mucosal lesions, there is no thrush , there is no pharyngitis. Neck: Is supple, there are no nodes, or masses or tenderness. Chest: Is clear to auscultation and percussion. There are no rales, rhonchi, wheezes or rubs. Heart: Rate, rhythm is regular. There is no murmur, rub or gallop. Abdomen: Good bowel sounds are present. Abdomen is soft, nontender, no organomegaly or masses were appreciated. Extremities: Are symmetrical and well perfused. There is no edema, there is no cellulitis, no rash. Neurologic: There are no focal neurological deficits. Cranial nerves II through XII are intact. There are no sensory or motor deficits. Psychiatric: Patients mood is calm and he shows no sign of agitation. Genital: Deferred Rectal: Deferred Lab and Diagnostics Result Diagram: 04/02/17 05004/02/17 050 X-Rays, CTs and MRIs PROCEDURE: MRI STROKE PROTOCOL ([id number]) Pre- and post-contrast brain MRI, non-contrast brain MR angiogram, pre- and postcontrast neck MR angiogram IMPRESSION: BRAIN MRI: Multiple, punctate areas of acute ischemia involving the right occipital lobe. BRAIN MR ANGIOGRAM: Occlusion of the right P2 segment. NECK MR ANGIOGRAM: Occlusion of the left internal carotid artery extending from the proximal segment just after the bifurcation, to the intracranial segment. Reconstitution of the left middle cerebral artery through anterior and posterior communicating arteries as detailed above. Narrowing and occlusion of the left P2 segment of the posterior cerebral artery. High-grade focal stenosis of the origin of the left vertebral artery. Diffuse atherosclerotic narrowing of the vertebral arteries bilaterally. The estimate of stenosis included in the report of the imaging study was calculated using the NASCET method Dictated by: Tone Hdez M.D. on 03/29/2017 at 8:35 Approved by: Tone Hdez M.D. on 03/29/2017 at 8:56 PROCEDURE: MRI BRAIN WITHOUT CONTRAST ([id number]) INDICATIONS: New CVA TECHNIQUE: Non-contrast axial T1 spin echo, axial T2 fast spin echo, sagittal and axial FLAIR, coronal T2 fast spin echo, axial gradient echo, axial diffusion and ADC through the brain. COMPARISON: [facility], , MR STROKE PROTOCOL, 03/29/2017, 7:53. FINDINGS: Image quality: Excellent. CSF spaces: Ventricles appear symmetric in size and shape. Basal cisterns are patent. No extra-axial fluid collections. Brain: No intracranial bleeds or mass effects. There is cerebral volume loss for age. There are periventricular and deep white matter chronic small vessel ischemic changes. Brainstem appears normal. Punctate foci of restricted diffusion noted in the right occipital lobe compatible with acute/subacute infarcts. New, small, punctate focus of restricted effusion is noted posterior and inferior margin of the right occipital lobe compatible with an infarct which has occurred in the interval since prior MRI. Old left occipital subcortical white matter lacunar infarct is noted. Old, small, posterior left occipital cortical infarct is noted. Normal intravascular flow voids are present. Skull and face: Calvarial bone marrow is normal in signal. Orbits are normal. Sinuses: Sinuses and mastoids are clear. IMPRESSION: 1. New, small, but punctate acute right occipital infarct. 2. Punctate foci of restricted diffusion in the right occipital lobe stable compared to prior height compatible with subacute infarcts. 3. Old, small, left occipital infarcts. 4. Mild, diffuse volume loss. 5. Mild periventricular and subcortical white matter, microvascular ischemic changes. 6. No intracranial hemorrhage. Dictated by: Marylou Rojas MD, PhD on 03/31/2017 at 14:13 Approved by: Marylou Rojas MD, PhD on 03/31/2017 at 14:30 Cardiac Echo Impressions Echocardiogram Report Name: BILL NGUYEN RStudy Date: 03/30/2017 Height: 66 in Hospital Exam Location: [facility] Weight: 109 lb Gender: Male BSA: 1.5 m2 : 1945 Age: 72 yrs BP: 103/55 mmHg Reason For Study: CVA Ordering Physician: Performed By: Mulu Freedman Interpretation Summary The left ventricle is normal in size. There is no LV thrombus. The ejection fraction is estimated to be 60-65%. The right ventricle is normal in size and function. There is discrete nodular, calcified thickening of the non- coronary cusp. It is not mobile. It is not pedunculated. There is no aortic valve stenosis. No aortic regurgitation is present. The ascending aorta is mildly enlarged. Assessment & Plan 72-year-old male who presents with CVA CVA most likely secondary to hyperlipidemia and noncompliance with medications. Patient has had a new CVA just as of 03/31/2017. There is minimal to no change in his neurological findings. -Continue aspirin 81 mg daily -Continue Plavix 75 mg daily - Continue Atorvastatin 80 mg daily at bedtime -Consult with neurologist Dr. Mulligan, her time and expertise is appreciated. We will follow recommendations. -PT/OT consult -Echo: EF 60-65%, mild aortic enlargement -MR brain and neck (completed) yesterday shows a new CVA in the right occipital lobe Hypertension - We have increased lisinopril from 10mg QD to 20mg QD and will continue. - Continue tight blood pressure control - One dose of IV labetolol was given yesterday -Continue to monitor q4 hours for now Hyperlipidemia -Total cholesterol 252, LDL cholesterol 188 -Continue atorvastatin 80 mg daily at bedtime -We will monitor the patient for adverse side effects from the medication Diet: Heart healthy Disposition: The patient was scheduled to go home 03/31/2017 and to follow-up with his primary care physician as well as his exercise teacher (Dr. Daugherty) and Dr. Mulligan with 3 months of aspirin and Plavix therapy. However, on 2016 the patient started to have new onset symptoms that seem to be stroke related. The patient underwent a repeat MRI which showed a new right occipital infarct. We will reconsult speech therapy, occupational therapy and physical therapy. The patient does not feel comfortable going home today due to not feeling well and slightly elevated blood pressure this morning. Patient states he would be willing to go home tomorrow if he is feeling a little better and his blood pressure is controlled.. Pain Evaluation: Adequate Pain Control VTE Prophylaxis: Sub-Q Heparin (Unfractionated) VTE Mechanical Devices: Venous Foot Pump Resuscitation Status: CPR: Attempt Resuscitation Jabier José MD April 02, 2017 22:44
[2017-04-03] VITALS (9 sets, daily range): BP systolic 110–154; BP diastolic 42–106; PULSE 62–84; RESP 18–20; O2SAT 98–100
[2017-04-03] MEDS: 0.9% Sodium Chloride 1,000 ML IV SCH (08:09)
[2017-04-03] MEDS: Heparin 5,000 Unit/mL Inj SUBQ SCH ×2 (08:10→20:23)
--- NOTE | 2017-04-03 13:34 | PCM.DIMED ---
Discharge Instructions Date of Service April 03, 2017 Dates of Hospitalization March 29, 2017 at 08:56 Discharge Diagnosis Discharge Diagnosis Occipital Lobe CVA Diet Heart Healthy Activity No restrictions (The patient may resume usual activities gradually as tolerated. ) Call your provider Fever or Chills, Shortness of breath, Bleeding, Chest pain, Vomitting, Excessive diarrhea, Weakness (unilateral) Patient Instructions Follow-up Provider: Loren Good MD Follow-up with PCP in: 1 week Provider: Michelle Mulligan MD Follow-up in: 2 weeks Jabier José MD April 03, 2017 13:34
[2017-04-03] MEDS ORDERED: ATOR40TA69 PO (13:36)
[2017-04-03] MEDS ORDERED: LISI-571 PO (13:36)
[2017-04-03] MEDS ORDERED: CLOP75TA28 PO (13:36)
[2017-04-03] MEDS ORDERED: ASPI81TA3 PO (13:36)
--- NOTE | 2017-04-03 18:36 | PCM.DC.MED ---
Discharge Summary Date of Service April 03, 2017 Dates of Hospitalization Date of Hospital Admission March 29, 2017 at 08:56 Date of Discharge: April 03, 2017 Providers: Admitting Physician: Lilliana Nguyen DO Primary Care Physician: Loren Good MD Attending Physician: Lilliana Nguyen DO Diagnosis at Time of Discharge Diagnosis at Time of Discharge Occipital Lobe CVA Consultations Neurologist Dr. Evy Mulligan Procedures XRay, CTs & MRIs PROCEDURE: MRI STROKE PROTOCOL ([id number]) Pre- and post-contrast brain MRI, non-contrast brain MR angiogram, pre- and postcontrast neck MR angiogram IMPRESSION: BRAIN MRI: Multiple, punctate areas of acute ischemia involving the right occipital lobe. BRAIN MR ANGIOGRAM: Occlusion of the right P2 segment. NECK MR ANGIOGRAM: Occlusion of the left internal carotid artery extending from the proximal segment just after the bifurcation, to the intracranial segment. Reconstitution of the left middle cerebral artery through anterior and posterior communicating arteries as detailed above. Narrowing and occlusion of the left P2 segment of the posterior cerebral artery. High-grade focal stenosis of the origin of the left vertebral artery. Diffuse atherosclerotic narrowing of the vertebral arteries bilaterally. The estimate of stenosis included in the report of the imaging study was calculated using the NASCET method Dictated by: Tone Hdez M.D. on 03/29/2017 at 8:35 Approved by: Tone Hdez M.D. on 03/29/2017 at 8:56 PROCEDURE: MRI BRAIN WITHOUT CONTRAST ([id number]) INDICATIONS: New CVA TECHNIQUE: Non-contrast axial T1 spin echo, axial T2 fast spin echo, sagittal and axial FLAIR, coronal T2 fast spin echo, axial gradient echo, axial diffusion and ADC through the brain. COMPARISON: [facility], , MR STROKE PROTOCOL, 03/29/2017, 7:53. FINDINGS: Image quality: Excellent. CSF spaces: Ventricles appear symmetric in size and shape. Basal cisterns are patent. No extra-axial fluid collections. Brain: No intracranial bleeds or mass effects. There is cerebral volume loss for age. There are periventricular and deep white matter chronic small vessel ischemic changes. Brainstem appears normal. Punctate foci of restricted diffusion noted in the right occipital lobe compatible with acute/subacute infarcts. New, small, punctate focus of restricted effusion is noted posterior and inferior margin of the right occipital lobe compatible with an infarct which has occurred in the interval since prior MRI. Old left occipital subcortical white matter lacunar infarct is noted. Old, small, posterior left occipital cortical infarct is noted. Normal intravascular flow voids are present. Skull and face: Calvarial bone marrow is normal in signal. Orbits are normal. Sinuses: Sinuses and mastoids are clear. IMPRESSION: 1. New, small, but punctate acute right occipital infarct. 2. Punctate foci of restricted diffusion in the right occipital lobe stable compared to prior height compatible with subacute infarcts. 3. Old, small, left occipital infarcts. 4. Mild, diffuse volume loss. 5. Mild periventricular and subcortical white matter, microvascular ischemic changes. 6. No intracranial hemorrhage. Dictated by: Marylou Rojas MD, PhD on 03/31/2017 at 14:13 Approved by: Marylou Rojas MD, PhD on 03/31/2017 at 14:30 Cardiac Echo Impression Echocardiogram Report Name: BILL NGUYEN RStudy Date: 03/30/2017 Height: 66 in Hospital Exam Location: [facility] Weight: 109 lb Gender: Male BSA: 1.5 m2 : 1945 Age: 72 yrs BP: 103/55 mmHg Reason For Study: CVA Ordering Physician: Performed By: Mulu Freedman Interpretation Summary The left ventricle is normal in size. There is no LV thrombus. The ejection fraction is estimated to be 60-65%. The right ventricle is normal in size and function. There is discrete nodular, calcified thickening of the non- coronary cusp. It is not mobile. It is not pedunculated. There is no aortic valve stenosis. No aortic regurgitation is present. The ascending aorta is mildly enlarged. Brief History As per Dr. Nguyen' HPI: Clear "Patient is a 72-year-old male who presents to the hospital with the complaint of left-sided arm and leg numbness and tingling and seeing spots since yesterday. The patient stated that when he woke up yesterday morning he is having left-sided arm numbness and tingling and thought that he slept on his arm wrong however as the day progressed the numbness and tingling did not dissipate and then he started to have numbness and tingling in his left leg and he started having visual changes by seeing spots. The patient then decided to come into the emergency room. At that time CT scan and MRI were done and the patient was found to have a CVA." Patient was admitted to the hospitalist service for further evaluation and treatment. Hospital Course The patient is a 72-year-old male who presented with a CVA CVA most likely secondary to hyperlipidemia and noncompliance with medications. Patient has had a new CVA just as of 03/31/2017. There is minimal to no change in his neurological findings. -Continue aspirin 81 mg daily -Continue Plavix 75 mg daily -Continue Atorvastatin 80 mg daily at bedtime -Consult was obtained with neurologist Dr. Mulligan, her time and expertise is appreciated. We will follow her recommendations. -PT/OT consult -Echo: EF 60-65%, mild aortic enlargement -MR brain and neck (completed) shows a new CVA in the right occipital lobe Hypertension - We have increased lisinopril from 10mg QD to 20mg QD and will continue. - Continue tight blood pressure control Hyperlipidemia -Total cholesterol 252, LDL cholesterol 188 -Continue atorvastatin 80 mg daily at bedtime -We will monitor the patient for adverse side effects from the medication Diet: Heart healthy Disposition: The patient was scheduled to go home 03/31/2017 and to follow-up with his primary care physician as well as his clay caster (Dr. Daugherty) and Dr. Mulligan with 3 months of aspirin and Plavix therapy. However, on 2016 the patient started to have new onset symptoms that seem to be stroke related. The patient underwent a repeat MRI which showed a new right occipital infarct. We reconsulted speech therapy, occupational therapy and physical therapy. There has been little to no change in the patient's neurological function. I advised the patient that he could continue his current treatment at home, as we were not doing anything for him here that he could not continue at home. The patient does not feel comfortable going home again today due to not feeling well and slightly elevated blood pressure 1 time today. At no time has his systolic blood pressure been recorded over 160. He also complains of loose stools which he has had for years Patient states he still has a headache. When I explained to the patient my understanding of the problems that he is having due to his recent stroke, I again explained to the patient that the treatment that we are giving him here in the hospital could be continued safely at home. The patient stated that he did not feel comfortable going home and that he would appeal any discharge order. Patient apparently lives by himself in a motel or hotel room. Exam Vital Signs (Last) Date Time Temp Pulse Resp B/P Pulse Ox O2 Delivery O2 Flow Rate FiO2 04/03/17 17:28 36.4 76 20 116/75 98 Room Air Exam General: The patient is sitting up in bed resting comfortably and in no apparent distress. HEENT: Head is atraumatic and normocephalic. Eyes: Pupils are equally round and reactive to light and accommodation. Extraocular muscles are intact. Sclera are white, anicteric. Subconjunctival mucosa is pink. Ears and nose are unremarkable. Oropharynx: There are no mucosal lesions, there is no thrush , there is no pharyngitis. Neck: Is supple, there are no nodes, or masses or tenderness. Chest: Is clear to auscultation and percussion. There are no rales, rhonchi, wheezes or rubs. Heart: Rate, rhythm is regular. There is no no murmur, rub or gallop. Abdomen: Good bowel sounds are present. Abdomen is soft, nontender, no organomegaly or masses were appreciated. Extremities: Are symmetrical and well perfused. There is no edema, there is no cellulitis, no rash. Neurologic: There are no focal neurological deficits. Cranial nerves II through XII are intact. There are no sensory or motor deficits. Patient has subjective complaints of visual field defects and visual hallucinations. He admits that these are improving and not as severe. Psychiatric: Patients mood is calm and he shows no sign of agitation. Genital: Deferred Rectal: Deferred Test 03/29/17 04:40 03/29/17 05:50 04/02/17 05:03 04/03/17 08:44 Hold Purple Top Tube Received (Received) Prothrombin Time 10.4sec (8.1-12.5) Prothromb Time International Ratio 0.97ratio Activated Partial Thromboplast Time 24.7sec (22.8-33.0) Hold Blue Top Tube Received (Received) Hemoglobin A1c 5.0% (4.8-5.6) Troponin T 0.010ug/L (0.0-0.011) Triglycerides Level 63mg/dL (0-149) Cholesterol Level 252mg/dL (100-199) LDL Cholesterol, Calculated 188.400mg/dL (0-99) VLDL Cholesterol 12.600mg/dL HDL Cholesterol 51mg/dL (>39) Cholesterol/HDL Ratio 4.94 (0.0-4.4) Hold Red Top Tube Received (Received) Hold [place] Top Tube Received (Received) Hold [place] Top Tube Received (Received) Alcohols < 10mg/dL (0-10) Urine Color Yellow (YELLOW) Urine Appearance Clear (CLEAR,HAZY) Urine pH 6.0 (5.0-8.0) Urine Specific Dougherty 1.020 (1.003-1.035) Urine Protein Negativemg/dL (NEG,TRACE) Urine Glucose (UA) Negativemg/dL (NEGATIVE) Urine Ketones Negativemg/dL (NEGATIVE) Urine Occult Blood Negative (NEGATIVE) Urine Nitrite Negative (NEGATIVE) Urine Bilirubin Negative (NEGATIVE) Urine Urobilinogen Normalmg/dL (NORMAL) Urine Leukocyte Esterase Negative (NEGATIVE) Urine RBC 0-2/hpf (0-2) Urine WBC 0-5/hpf (0-5) Urine Epithelial Cells None/hpf (NONE-MOD) Urine Crystals None seen (NONE SEEN) Urine Bacteria None/hpf (NONE-FEW) Urine Hyaline Casts None/lpf (NONE) Urine Granular Casts None seen (NONE SEEN) Urine Waxy Casts None seen (NONE SEEN) Urine Red Blood Cell Casts None seen (NONE SEEN) Urine White Blood Cell Casts None seen (NONE SEEN) Urine Mucus None seen (None Seen) Urine Trichomonas None seen (NONE SEEN) Urine Yeast None (NONE SEEN) Urinalysis Comment None Urine Culture Reflexed Not indicated Urine Opiates Screen Negative Urine Methadone Screen Negative Urine Barbiturates Screen Negative Urine Amphetamines Screen Negative Urine Benzodiazepines Screen Negative Urine Cocaine Metabolite Screen Negative Urine Cannabinoids Screen Negative White Blood Count 8.2th/mm3 (3.8-10.1) Red Blood Count 4.27mil/mm3 (4.40-5.80) Hemoglobin 14.5g/dL (13.8-17.2) Hematocrit 41.5% (41.0-50.0) Mean Corpuscular Volume 97.2fL (81-100) Mean Corpuscular Hemoglobin 34.0pg (27.0-35.0) Mean Corpuscular Hemoglobin Concent 34.9% (32.0-37.0) Red Cell Distribution Width 13.3% (12.3-15.4) Platelet Count 253bil/L (150-400) Neutrophils (%) (Auto) 54.2% (40-74) Lymphocytes (%) (Auto) 28.4% (14-46) Monocytes (%) (Auto) 10.0% (4-12) Eosinophils (%) (Auto) 6.3% (0-5) Basophils (%) (Auto) 1.0% (0-3) Magnesium Level 2.1mg/dL (1.6-2.6) Total Bilirubin 0.6mg/dL (0.0-1.2) Aspartate Amino Transf (AST/SGOT) 24U/L (0-50) Alanine Aminotransferase (ALT/SGPT) 12U/L (0-44) Alkaline Phosphatase 80U/L (25-160) Total Protein 7.3g/dL (6.4-8.4) Albumin 4.3g/dL (3.4-5.0) Sodium Level 139mEq/L (134-144) Potassium Level 4.5mEq/L (3.5-5.2) Chloride Level 101mEq/L (97-108) Carbon Dioxide Level 27mmol/L (18-29) Blood Urea Nitrogen 16mg/dL (8-27) Creatinine 0.78mg/dL (0.76-1.27) Estimat Glomerular Filtration Rate 104mL/min (>59) Glucose Level 85mg/dL (60-99) Calcium Level 8.9mg/dL (8.5-10.1) Discharge Medications Discharge Medications Aspirin Chew (Aspirin Chew) 81 Mg Chew 81 MG PO DAILY Prescribed by: LAURIE BALBUENA MD Atorvastatin Calcium (Atorvastatin Calcium) 40 Mg Tablet 80 MG PO HS Prescribed by: LAURIE BALBUENA MD Cholecalciferol (Vitamin D3) (Vitamin D) 5,000 Unit Capsule 5,000 UNIT PO QAM ( Reported) Clopidogrel (Clopidogrel) 75 Mg Tablet 75 MG PO DAILY Prescribed by: LAURIE BALBUENA MD Lisinopril (Lisinopril) 5 Mg Tablet 20 MG PO DAILY Prescribed by: LAURIE BALBUENA MD Multivitamin (Multivitamins) 1 Each Capsule 1 EACH PO DAILY (Reported) Simvastatin (Simvastatin) 20 Mg Tablet 20 MG PO HS (Reported) Followup Plan Disposition: Patient is being discharged home and being driven home by his sister. He lives in [place] and walks to the grocery store to the supermarket and anywhere else that he wants to go in the town of [place]. Discharge Diet: Heart Healthy Discharge Activity: No restrictions (The patient may resume usual activities gradually as tolerated.) Follow-up Provider: Loren Good MD Follow-up with PCP in: 1 week Provider: Michelle Mulligan MD Follow-up in: 2 weeks Time spent Time spent on discharging this patient was greater than 35 minutes over half of which was involved in counseling and coordination of care. Jabier Balbuena MD April 03, 2017 18:36
[2017-04-04] VITALS (8 sets, daily range): BP systolic 113–135; BP diastolic 49–66; PULSE 64–84; RESP 16–20; O2SAT 96–100
[2017-04-04] MEDS: Heparin 5,000 Unit/mL Inj SUBQ SCH ×2 (09:04→21:48)
--- NOTE | 2017-04-05 00:39 | PCM.PNMED ---
Subjective Date of Service April 05, 2017 Subjective Patient has appealed his discharge. Therefore, he is still in his room sitting in bed. His blood pressure has been very stable. He admitted feeling very anxious that his blood pressure and heart monitor machine which was at his bedside was removed from the room. He admitted that it was like a security blanket for him. He has no new complaints and other than being somewhat emotional about his anxiety and loss of his "security blanket", he is in no distress Exam Vital Signs Vital Sign - Last Date Time Temp Pulse Resp B/P Pulse Ox O2 Delivery O2 Flow Rate FiO2 04/04/17 21:00 36.5 65 16 127/61 100 Room Air Intake and Output 04/04/17 04/04/17 04/05/17 Cumulative From/Thru 15:00 23:00 07:00 03/29/17 04:36 - 04/04/17 21:50 Intake Total 918 ml 11646 ml Output Total 1225 ml 50053 ml Balance -307 ml 3815 ml Intake Oral 918 ml 9332 ml IV Total 8153 ml Output Urine Total 1225 ml 30500 ml # Voids 3 # Bowel Movements 1 12 Exam General: The patient is sitting up in bed resting comfortably and in no apparent distress. HEENT: Head is atraumatic and normocephalic. Eyes: Pupils are equally round and reactive to light and accommodation. Extraocular muscles are intact. Sclera are white, anicteric. Subconjunctival mucosa is pink. Ears and nose are unremarkable. Oropharynx: There are no mucosal lesions, there is no thrush , there is no pharyngitis. Neck: Is supple, there are no nodes, or masses or tenderness. Chest: Is clear to auscultation and percussion. There are no rales, rhonchi, wheezes or rubs. Heart: Rate, rhythm is regular. There is no no murmur, rub or gallop. Abdomen: Good bowel sounds are present. Abdomen is soft, nontender, no organomegaly or masses were appreciated. Extremities: Are symmetrical and well perfused. There is no edema, there is no cellulitis, no rash. Neurologic: There are no focal neurological deficits. Cranial nerves II through XII are intact. There are no sensory or motor deficits. Patient has subjective complaints of visual field defects and visual hallucinations. He admits that these are improving and not as severe. Psychiatric: Patients mood is calm and he shows no sign of agitation. Genital: Deferred Rectal: Deferred Lab and Diagnostics Result Diagram: 04/02/17 0503 04/03/17 0844 X-Rays, CTs and MRIs PROCEDURE: MRI STROKE PROTOCOL ([id number]) Pre- and post-contrast brain MRI, non-contrast brain MR angiogram, pre- and postcontrast neck MR angiogram IMPRESSION: BRAIN MRI: Multiple, punctate areas of acute ischemia involving the right occipital lobe. BRAIN MR ANGIOGRAM: Occlusion of the right P2 segment. NECK MR ANGIOGRAM: Occlusion of the left internal carotid artery extending from the proximal segment just after the bifurcation, to the intracranial segment. Reconstitution of the left middle cerebral artery through anterior and posterior communicating arteries as detailed above. Narrowing and occlusion of the left P2 segment of the posterior cerebral artery. High-grade focal stenosis of the origin of the left vertebral artery. Diffuse atherosclerotic narrowing of the vertebral arteries bilaterally. The estimate of stenosis included in the report of the imaging study was calculated using the NASCET method Dictated by: Tone Hdez M.D. on 03/29/2017 at 8:35 Approved by: Tone Hdez M.D. on 03/29/2017 at 8:56 PROCEDURE: MRI BRAIN WITHOUT CONTRAST ([id number]) INDICATIONS: New CVA TECHNIQUE: Non-contrast axial T1 spin echo, axial T2 fast spin echo, sagittal and axial FLAIR, coronal T2 fast spin echo, axial gradient echo, axial diffusion and ADC through the brain. COMPARISON: [facility], , MR STROKE PROTOCOL, 03/29/2017, 7:53. FINDINGS: Image quality: Excellent. CSF spaces: Ventricles appear symmetric in size and shape. Basal cisterns are patent. No extra-axial fluid collections. Brain: No intracranial bleeds or mass effects. There is cerebral volume loss for age. There are periventricular and deep white matter chronic small vessel ischemic changes. Brainstem appears normal. Punctate foci of restricted diffusion noted in the right occipital lobe compatible with acute/subacute infarcts. New, small, punctate focus of restricted effusion is noted posterior and inferior margin of the right occipital lobe compatible with an infarct which has occurred in the interval since prior MRI. Old left occipital subcortical white matter lacunar infarct is noted. Old, small, posterior left occipital cortical infarct is noted. Normal intravascular flow voids are present. Skull and face: Calvarial bone marrow is normal in signal. Orbits are normal. Sinuses: Sinuses and mastoids are clear. IMPRESSION: 1. New, small, but punctate acute right occipital infarct. 2. Punctate foci of restricted diffusion in the right occipital lobe stable compared to prior height compatible with subacute infarcts. 3. Old, small, left occipital infarcts. 4. Mild, diffuse volume loss. 5. Mild periventricular and subcortical white matter, microvascular ischemic changes. 6. No intracranial hemorrhage. Dictated by: Marylou Rojas MD, PhD on 03/31/2017 at 14:13 Approved by: Marylou Rojas MD, PhD on 03/31/2017 at 14:30 Cardiac Echo Impressions Echocardiogram Report Name: BILL NGUYEN RStudy Date: 03/30/2017 Height: 66 in Hospital Exam Location: [facility] Weight: 109 lb Gender: Male BSA: 1.5 m2 : 1945 Age: 72 yrs BP: 103/55 mmHg Reason For Study: CVA Ordering Physician: Performed By: Mulu Freedman Interpretation Summary The left ventricle is normal in size. There is no LV thrombus. The ejection fraction is estimated to be 60-65%. The right ventricle is normal in size and function. There is discrete nodular, calcified thickening of the non- coronary cusp. It is not mobile. It is not pedunculated. There is no aortic valve stenosis. No aortic regurgitation is present. The ascending aorta is mildly enlarged. Assessment & Plan The patient is a 72-year-old male who presented with a CVA CVA most likely secondary to hyperlipidemia and noncompliance with medications. Patient has had a new CVA just as of 03/31/2017. There is minimal to no change in his neurological findings. -Continue aspirin 81 mg daily -Continue Plavix 75 mg daily -Continue Atorvastatin 80 mg daily at bedtime -Consult was obtained with neurologist Dr. Mulligan, her time and expertise is appreciated. We will follow her recommendations. -PT/OT consult -Echo: EF 60-65%, mild aortic enlargement -MR brain and neck (completed) shows a new CVA in the right occipital lobe Hypertension - We have increased lisinopril from 10mg QD to 20mg QD and will continue. - Continue tight blood pressure control Hyperlipidemia -Total cholesterol 252, LDL cholesterol 188 -Continue atorvastatin 80 mg daily at bedtime -We will monitor the patient for adverse side effects from the medication Diet: Heart healthy Disposition: The patient was scheduled to go home 03/31/2017 and to follow-up with his primary care physician as well as his sanipractic physician (Dr. Daugherty) and Dr. Mulligan with 3 months of aspirin and Plavix therapy. However, on 2016 the patient started to have new onset symptoms that seem to be stroke related. The patient underwent a repeat MRI which showed a new right occipital infarct. We reconsulted speech therapy, occupational therapy and physical therapy. There has been little to no change in the patient's neurological function. I advised the patient that he could continue his current treatment at home, as we were not doing anything for him here that he could not continue at home. The patient does not feel comfortable going home again today due to not feeling well and slightly elevated blood pressure 1 time today. At no time has his systolic blood pressure been recorded over 160. It has rarely gone over 150 and over last 24 hours has been completely normal. He also complains of loose stools which he has had for years Patient states he still has a headache. When I explained to the patient my understanding of the problems that he is having due to his recent stroke, I again explained to the patient that the treatment that we are giving him here in the hospital could be continued safely at home. The patient stated that he did not feel comfortable going home and that he would appeal any discharge order. Patient apparently lives by himself in a motel or hotel room. Pain Evaluation: Adequate Pain Control VTE Prophylaxis: Sub-Q Heparin (Unfractionated) VTE Mechanical Devices: Venous Foot Pump Resuscitation Status: CPR: Attempt Resuscitation Jabier José MD April 05, 2017 00:39
[2017-04-05 04:04] VITALS: BP 133/68; PULSE 63; RESP 16; O2SAT 96
[2017-04-05] MEDS: Heparin 5,000 Unit/mL Inj SUBQ SCH ×2 (09:05→21:09)
[2017-04-05 13:50] VITALS: BP 125/69; PULSE 75; RESP 18; O2SAT 99
--- NOTE | 2017-04-05 19:20 | CONS ---
[address] [address] CONSULTATION REPORT PATIENT: BILL NGUYEN : 1945 MR#: [id number] ADMIT: 03/29/2017 JOB ID: [id number] DATE OF SERVICE: 04/05/2017 IDENTIFICATION: Client is a 72-year-old, white male, who was admitted and treated for a CVA. REASON FOR CONSULT: Client is medically cleared and ready for discharge home but is having high anxiety and is refusing discharge. HISTORY OF PRESENT ILLNESS: I was asked to consult today for evaluating complaints of high anxiety and depression in the patient, a 72-year-old, who recently had a stroke and is now ready for discharge. Client's main issue is anxiety about future strokes. The condition is acute and has only been developing over the several days since discharge has been discussed. He is currently manifesting with symptoms of high anxiety, 8/10, and poor sleep, poor concentration. He denies suicidal ideation. All these symptoms are improved with one-to-one communication and active adult engagement. He is currently presenting with no signs of emotional liability or cognitive deficits. His reality testing is intact. His judgment and insight is appropriate. His main difficulty is impulse control and at this time he is unable to handle the impulses of fear that he is experiencing. MENTAL STATUS EXAMINATION: Client neatly dressed in hospital gown. Calm, appearing thin and frail. Attitude was cooperative and pleasant. Speech normal rate and rhythm. Mood anxious. Affect congruent with normal intensity. Full range. Thought process: Client is able to relate a coherent history. Logical spontaneous thought processes. No signs of psychosis. Thought content: Themes of worrying about being incapacitated by an additional stroke. He also was talking about themes of grief and loss related to his brother dying of cancer in 2006 and his mother dying in 2005. Alert and oriented to person, place, and date. Immediate, short, and long-term memory intact. Attention and concentration relatively normal. Insight and judgment appropriate. Impulse control highly contained yet is struggling with impulses of fear. Reality testing intact. Competence to handle current stressors is being challenged. He is able to initiate and complete tasks. He is able to complete activities of daily living. He is struggling handling the current stress of fear of loss of function due to the potential of having another stroke. IMPRESSION: Patient is a 72-year-old, white male, who has no previous psychiatric history. Currently having three days of high anxiety and refusing to leave the hospital because he is afraid that he may have an additional stroke. He calms significantly during my evaluation and we talked at length about different supports he could get as an outpatient. We talked about [facility] or [facility] for 6-10 supportive psychotherapy sessions. He is getting [facility] coming to him. We also talked about a trial of low-dose Prozac and Xanax to help with his current moods. Client was agreeable to all the above. He agreed to be started on the medication today and tomorrow and plan for a noon discharge on Wednesday. DIAGNOSIS: Roscoe I. 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 Roscoe II. None. Roscoe III. Cerebrovascular accident. Roscoe IV. Severe due to fear of . Roscoe V. Current Global Assessment of Functioning equal to 45. PLAN: Recommend social work attempt to get client an intake at [facility] or [facility] for 5-6 psychosocial supportive sessions as he deals with the stressor of a CVA. Recommend start low-dose of Prozac 10 mg daily and Xanax 0.25 mg t.i.d. Again his primary care or [facility] could manage this. Client reportedly will have [facility]. Would also recommend that he re-engage with his sister and the [employer]. Thank you for a very interesting consult, Dr. José.
[2017-04-05 21:32] VITALS: BP 128/64; PULSE 80; RESP 18; O2SAT 97
--- NOTE | 2017-04-05 22:21 | PCM.PNMED ---
Subjective Date of Service April 05, 2017 Subjective Patient continues to feel his discharge. He is very anxious and worried about having another stroke. He has no other new complaints. He is emotionally labile. Exam Vital Signs Vital Sign - Last Date Time Temp Pulse Resp B/P Pulse Ox O2 Delivery O2 Flow Rate FiO2 04/05/17 21:32 36.7 80 18 128/64 97 Room Air Intake and Output 04/04/17 04/04/17 04/05/17 Cumulative From/Thru 15:00 23:00 07:00 03/29/17 04:36 - 04/05/17 06:34 Intake Total 918 ml 950 ml 87398 ml Output Total 1225 ml 300 ml 03592 ml Balance -307 ml 650 ml 4465 ml Intake Oral 918 ml 950 ml 74476 ml IV Total 8153 ml Output Urine Total 1225 ml 300 ml 47000 ml # Voids 3 # Bowel Movements 1 0 12 Exam General: The patient is sitting up in bed resting comfortably and in no apparent distress. HEENT: Head is atraumatic and normocephalic. Eyes: Pupils are equally round and reactive to light and accommodation. Extraocular muscles are intact. Sclera are white, anicteric. Subconjunctival mucosa is pink. Ears and nose are unremarkable. Oropharynx: There are no mucosal lesions, there is no thrush , there is no pharyngitis. Neck: Is supple, there are no nodes, or masses or tenderness. Chest: Is clear to auscultation and percussion. There are no rales, rhonchi, wheezes or rubs. Heart: Rate, rhythm is regular. There is no no murmur, rub or gallop. Abdomen: Good bowel sounds are present. Abdomen is soft, nontender, no organomegaly or masses were appreciated. Extremities: Are symmetrical and well perfused. There is no edema, there is no cellulitis, no rash. Neurologic: There are no focal neurological deficits. Cranial nerves II through XII are intact. There are no sensory or motor deficits. Patient has subjective complaints of visual field defects and visual hallucinations. He admits that these are improving and not as severe. Psychiatric: Patients mood is significant for emotional lability and he is quite anxious. Genital: Deferred Rectal: Deferred Lab and Diagnostics Result Diagram: 04/02/17 0503 04/03/17 4744 X-Rays, CTs and MRIs PROCEDURE: MRI STROKE PROTOCOL ([id number]) Pre- and post-contrast brain MRI, non-contrast brain MR angiogram, pre- and postcontrast neck MR angiogram IMPRESSION: BRAIN MRI: Multiple, punctate areas of acute ischemia involving the right occipital lobe. BRAIN MR ANGIOGRAM: Occlusion of the right P2 segment. NECK MR ANGIOGRAM: Occlusion of the left internal carotid artery extending from the proximal segment just after the bifurcation, to the intracranial segment. Reconstitution of the left middle cerebral artery through anterior and posterior communicating arteries as detailed above. Narrowing and occlusion of the left P2 segment of the posterior cerebral artery. High-grade focal stenosis of the origin of the left vertebral artery. Diffuse atherosclerotic narrowing of the vertebral arteries bilaterally. The estimate of stenosis included in the report of the imaging study was calculated using the NASCET method Dictated by: Tone Hdez M.D. on 03/29/2017 at 8:35 Approved by: Tone Hdez M.D. on 03/29/2017 at 8:56 PROCEDURE: MRI BRAIN WITHOUT CONTRAST ([id number]) INDICATIONS: New CVA TECHNIQUE: Non-contrast axial T1 spin echo, axial T2 fast spin echo, sagittal and axial FLAIR, coronal T2 fast spin echo, axial gradient echo, axial diffusion and ADC through the brain. COMPARISON: [facility], , MR STROKE PROTOCOL, 03/29/2017, 7:53. FINDINGS: Image quality: Excellent. CSF spaces: Ventricles appear symmetric in size and shape. Basal cisterns are patent. No extra-axial fluid collections. Brain: No intracranial bleeds or mass effects. There is cerebral volume loss for age. There are periventricular and deep white matter chronic small vessel ischemic changes. Brainstem appears normal. Punctate foci of restricted diffusion noted in the right occipital lobe compatible with acute/subacute infarcts. New, small, punctate focus of restricted effusion is noted posterior and inferior margin of the right occipital lobe compatible with an infarct which has occurred in the interval since prior MRI. Old left occipital subcortical white matter lacunar infarct is noted. Old, small, posterior left occipital cortical infarct is noted. Normal intravascular flow voids are present. Skull and face: Calvarial bone marrow is normal in signal. Orbits are normal. Sinuses: Sinuses and mastoids are clear. IMPRESSION: 1. New, small, but punctate acute right occipital infarct. 2. Punctate foci of restricted diffusion in the right occipital lobe stable compared to prior height compatible with subacute infarcts. 3. Old, small, left occipital infarcts. 4. Mild, diffuse volume loss. 5. Mild periventricular and subcortical white matter, microvascular ischemic changes. 6. No intracranial hemorrhage. Dictated by: Marylou Rojas MD, PhD on 03/31/2017 at 14:13 Approved by: Marylou Rojas MD, PhD on 03/31/2017 at 14:30 Cardiac Echo Impressions Echocardiogram Report Name: BILL NGUYEN RStudy Date: 03/30/2017 Height: 66 in Hospital Exam Location: [facility] Weight: 109 lb Gender: Male BSA: 1.5 m2 : 1945 Age: 72 yrs BP: 103/55 mmHg Reason For Study: CVA Ordering Physician: Performed By: Mulu Freedman Interpretation Summary The left ventricle is normal in size. There is no LV thrombus. The ejection fraction is estimated to be 60-65%. The right ventricle is normal in size and function. There is discrete nodular, calcified thickening of the non- coronary cusp. It is not mobile. It is not pedunculated. There is no aortic valve stenosis. No aortic regurgitation is present. The ascending aorta is mildly enlarged. Assessment & Plan The patient is a 72-year-old male who presented with a CVA CVA most likely secondary to hyperlipidemia and noncompliance with medications. Patient has had a new CVA just as of 03/31/2017. There is minimal to no change in his neurological findings. -Continue aspirin 81 mg daily -Continue Plavix 75 mg daily -Continue Atorvastatin 80 mg daily at bedtime -Consult was obtained with neurologist Dr. Mulligan, her time and expertise is appreciated. We will follow her recommendations. -PT/OT consult -Echo: EF 60-65%, mild aortic enlargement -MR brain and neck (completed) shows a new CVA in the right occipital lobe Patient is emotionally labile. - I have consulted Dr. Gary Salazar of psychiatry and appreciate his time and expertise. 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 Mtz recommends the following: "Recommend start low-dose of Prozac 10 mg daily and Xanax 0.25 mg t.i.d. Again his primary care or [facility] could manage this. Client reportedly will have [facility]. Would also recommend that he re-engage with his sister and the [employer]". Hypertension - We have increased lisinopril from 10mg QD to 20mg QD and will continue. - Continue tight blood pressure control Hyperlipidemia -Total cholesterol 252, LDL cholesterol 188 -Continue atorvastatin 80 mg daily at bedtime -We will monitor the patient for adverse side effects from the medication Diet: Heart healthy Disposition: The patient was scheduled to go home 03/31/2017 and to follow-up with his primary care physician as well as his tie sawyer (Dr. Daugherty) and Dr. Mulligan with 3 months of aspirin and Plavix therapy. However, on 2016 the patient started to have new onset symptoms that seem to be stroke related. The patient underwent a repeat MRI which showed a new right occipital infarct. We reconsulted speech therapy, occupational therapy and physical therapy. There has been little to no change in the patient's neurological function. I advised the patient that he could continue his current treatment at home, as we were not doing anything for him here that he could not continue at home. The patient does not feel comfortable going home again today due to not feeling well and slightly elevated blood pressure 1 time today. At no time has his systolic blood pressure been recorded over 160. It has rarely gone over 150 and over last 24 hours has been completely normal. He also complains of loose stools which he has had for years Patient states he still has a headache. When I explained to the patient my understanding of the problems that he is having due to his recent stroke, I again explained to the patient that the treatment that we are giving him here in the hospital could be continued safely at home. The patient stated that he did not feel comfortable going home and that he would appeal any discharge order. Patient apparently lives by himself in a motel or hotel room. Psychiatry has seen the patient today and appreciate Dr. Gary Salazar's time and expertise. The patient has agreed to take Prozac for situational depression and Xanax for anxiety. He is also agreed to leave the hospital at noon on 04/07/2017. Pain Evaluation: Adequate Pain Control VTE Prophylaxis: Sub-Q Heparin (Unfractionated) VTE Mechanical Devices: Venous Foot Pump Resuscitation Status: CPR: Attempt Resuscitation Jabier José MD April 05, 2017 22:21
[2017-04-06] MEDS: Labetalol 5 mg/mL 4 mL Inj IVPUSH PRN ×2 (06:03→17:56)
[2017-04-06 06:08] VITALS: BP 150/69; PULSE 79; RESP 16; O2SAT 99
[2017-04-06] MEDS: Heparin 5,000 Unit/mL Inj SUBQ SCH ×2 (08:46→20:52)
[2017-04-06 08:49] VITALS: BP 125/65; PULSE 75; RESP 16; O2SAT 100
[2017-04-06 17:46] VITALS: BP 150/69; PULSE 83; RESP 18; O2SAT 98
[2017-04-06 19:36] VITALS: BP 122/60; PULSE 77
[2017-04-06] MEDS ORDERED: Labetalol 5 mg/mL 20 mL Inj IV PRN (19:45)
--- NOTE | 2017-04-06 21:08 | PCM.PNMED ---
Subjective Date of Service April 06, 2017 Subjective Patient complains of some left-sided neck pain with donning her range of motion. She still has a slight headache. However, he has no other new complaints. Exam Vital Signs Vital Sign - Last Date Time Temp Pulse Resp B/P Pulse Ox O2 Delivery O2 Flow Rate FiO2 04/06/17 19:36 77 122/60 04/06/17 17:46 37.1 18 98 Room Air Intake and Output 04/05/17 04/05/17 04/06/17 Cumulative From/Thru 15:00 23:00 07:00 03/29/17 04:36 - 04/06/17 06:52 Intake Total 1455 ml 700 ml 77536 ml Output Total 1625 ml 1250 ml 03601 ml Balance -170 ml -550 ml 3745 ml Intake Oral 1455 ml 700 ml 92568 ml IV Total 8153 ml Output Urine Total 1625 ml 1250 ml 52278 ml # Voids 3 # Bowel Movements 0 0 12 Exam General: The patient is sitting up in bed resting comfortably and in no apparent distress. HEENT: Head is atraumatic and normocephalic. Eyes: Pupils are equally round and reactive to light and accommodation. Extraocular muscles are intact. Sclera are white, anicteric. Subconjunctival mucosa is pink. Ears and nose are unremarkable. Oropharynx: There are no mucosal lesions, there is no thrush , there is no pharyngitis. Neck: Is supple, there are no nodes, or masses or tenderness. However, there is some tightness of the left sternocleidomastoid muscle, which is a muscle that hurts him when he yawns. Chest: Is clear to auscultation and percussion. There are no rales, rhonchi, wheezes or rubs. Heart: Rate, rhythm is regular. There is no no murmur, rub or gallop. Abdomen: Good bowel sounds are present. Abdomen is soft, nontender, no organomegaly or masses were appreciated. Extremities: Are symmetrical and well perfused. There is no edema, there is no cellulitis, no rash. Neurologic: There are no focal neurological deficits. Cranial nerves II through XII are intact. There are no sensory or motor deficits. Patient has subjective complaints of visual field defects and visual hallucinations. He admits that these are improving and not as severe. Psychiatric: Patients mood is significant for emotional lability and he is quite anxious. Genital: Deferred Rectal: Deferred Lab and Diagnostics Result Diagram: 04/02/17 0503 04/03/17 0844 X-Rays, CTs and MRIs PROCEDURE: MRI STROKE PROTOCOL ([id number]) Pre- and post-contrast brain MRI, non-contrast brain MR angiogram, pre- and postcontrast neck MR angiogram IMPRESSION: BRAIN MRI: Multiple, punctate areas of acute ischemia involving the right occipital lobe. BRAIN MR ANGIOGRAM: Occlusion of the right P2 segment. NECK MR ANGIOGRAM: Occlusion of the left internal carotid artery extending from the proximal segment just after the bifurcation, to the intracranial segment. Reconstitution of the left middle cerebral artery through anterior and posterior communicating arteries as detailed above. Narrowing and occlusion of the left P2 segment of the posterior cerebral artery. High-grade focal stenosis of the origin of the left vertebral artery. Diffuse atherosclerotic narrowing of the vertebral arteries bilaterally. The estimate of stenosis included in the report of the imaging study was calculated using the NASCET method Dictated by: Tone Hdez M.D. on 03/29/2017 at 8:35 Approved by: Tone Hdez M.D. on 03/29/2017 at 8:56 PROCEDURE: MRI BRAIN WITHOUT CONTRAST ([id number]) INDICATIONS: New CVA TECHNIQUE: Non-contrast axial T1 spin echo, axial T2 fast spin echo, sagittal and axial FLAIR, coronal T2 fast spin echo, axial gradient echo, axial diffusion and ADC through the brain. COMPARISON: [facility], , MR STROKE PROTOCOL, 03/29/2017, 7:53. FINDINGS: Image quality: Excellent. CSF spaces: Ventricles appear symmetric in size and shape. Basal cisterns are patent. No extra-axial fluid collections. Brain: No intracranial bleeds or mass effects. There is cerebral volume loss for age. There are periventricular and deep white matter chronic small vessel ischemic changes. Brainstem appears normal. Punctate foci of restricted diffusion noted in the right occipital lobe compatible with acute/subacute infarcts. New, small, punctate focus of restricted effusion is noted posterior and inferior margin of the right occipital lobe compatible with an infarct which has occurred in the interval since prior MRI. Old left occipital subcortical white matter lacunar infarct is noted. Old, small, posterior left occipital cortical infarct is noted. Normal intravascular flow voids are present. Skull and face: Calvarial bone marrow is normal in signal. Orbits are normal. Sinuses: Sinuses and mastoids are clear. IMPRESSION: 1. New, small, but punctate acute right occipital infarct. 2. Punctate foci of restricted diffusion in the right occipital lobe stable compared to prior height compatible with subacute infarcts. 3. Old, small, left occipital infarcts. 4. Mild, diffuse volume loss. 5. Mild periventricular and subcortical white matter, microvascular ischemic changes. 6. No intracranial hemorrhage. Dictated by: Marylou Rojas MD, PhD on 03/31/2017 at 14:13 Approved by: Marylou Rojas MD, PhD on 03/31/2017 at 14:30 Cardiac Echo Impressions Echocardiogram Report Name: BILL NGUYEN RStudy Date: 03/30/2017 Height: 66 in Hospital Exam Location: [facility] Weight: 109 lb Gender: Male BSA: 1.5 m2 : 1945 Age: 72 yrs BP: 103/55 mmHg Reason For Study: CVA Ordering Physician: Performed By: Mulu Freedman Interpretation Summary The left ventricle is normal in size. There is no LV thrombus. The ejection fraction is estimated to be 60-65%. The right ventricle is normal in size and function. There is discrete nodular, calcified thickening of the non- coronary cusp. It is not mobile. It is not pedunculated. There is no aortic valve stenosis. No aortic regurgitation is present. The ascending aorta is mildly enlarged. Assessment & Plan The patient is a 72-year-old male who presented with a CVA CVA most likely secondary to hyperlipidemia and noncompliance with medications. Patient has had a new CVA just as of 03/31/2017. There is minimal to no change in his neurological findings. -Continue aspirin 81 mg daily -Continue Plavix 75 mg daily -Continue Atorvastatin 80 mg daily at bedtime -Consult was obtained with neurologist Dr. Mulligan, her time and expertise is appreciated. We will follow her recommendations. -PT/OT consult -Echo: EF 60-65%, mild aortic enlargement -MR brain and neck (completed) shows a new CVA in the right occipital lobe Patient is emotionally labile. - I have consulted Dr. Gary Salazar of psychiatry and appreciate his time and expertise. 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 Mtz recommends the following: "Recommend start low-dose of Prozac 10 mg daily and Xanax 0.25 mg t.i.d. Again his primary care or [facility] could manage this. Client reportedly will have [facility]. Would also recommend that he re-engage with his sister and the [employer]". - The patient's sister visited again today. Patient appears less anxious today so we will hold off on the Xanax. Prozac was started. Hypertension - We have increased lisinopril from 10mg QD to 20mg QD and will continue. - Continue tight blood pressure control Hyperlipidemia -Total cholesterol 252, LDL cholesterol 188 -Continue atorvastatin 80 mg daily at bedtime -We will monitor the patient for adverse side effects from the medication Diet: Heart healthy Disposition: The patient was scheduled to go home 03/31/2017 and to follow-up with his primary care physician as well as his reports developer (Dr. Daugherty) and Dr. Mulligan with 3 months of aspirin and Plavix therapy. However, on 2016 the patient started to have new onset symptoms that seem to be stroke related. The patient underwent a repeat MRI which showed a new right occipital infarct. We reconsulted speech therapy, occupational therapy and physical therapy. There has been little to no change in the patient's neurological function. I advised the patient that he could continue his current treatment at home, as we were not doing anything for him here that he could not continue at home. The patient does not feel comfortable going home again today due to not feeling well and slightly elevated blood pressure 1 time today. At no time has his systolic blood pressure been recorded over 160. It has rarely gone over 150 and over last 24 hours has been completely normal. He also complains of loose stools which he has had for years Patient states he still has a headache. When I explained to the patient my understanding of the problems that he is having due to his recent stroke, I again explained to the patient that the treatment that we are giving him here in the hospital could be continued safely at home. The patient stated that he did not feel comfortable going home and that he would appeal any discharge order. Patient apparently lives by himself in a motel or hotel room. Psychiatry has seen the patient today and appreciate Dr. Gary Salazar's time and expertise. The patient has agreed to take Prozac for situational depression and Xanax for anxiety. He is also agreed to leave the hospital at noon on 04/07/2017. At this point patient has not requested Xanax and will hold off on the Xanax for now. Pain Evaluation: Adequate Pain Control GI Prophylaxis: H2 gilmar VTE Prophylaxis: Sub-Q Heparin (Unfractionated) VTE Mechanical Devices: Intermittant Pneumatic CD Resuscitation Status: CPR: Attempt Resuscitation Jabier José MD April 06, 2017 21:08
[2017-04-07 06:09] VITALS: BP 141/71; PULSE 72; RESP 17; O2SAT 98
[2017-04-07 07:43] VITALS: BP 147/64; PULSE 73
[2017-04-07 08:34] VITALS: BP 138/59; PULSE 90; RESP 18; O2SAT 99
[2017-04-07] MEDS: Heparin 5,000 Unit/mL Inj SUBQ SCH (09:51)
[2017-04-07] MEDS ORDERED: FLUO10CA30 PO (14:05)
[2017-04-07] MEDS ORDERED: LISI10TA PO (14:08)
--- NOTE | 2017-04-08 01:31 | PCM.DC.MED ---
Discharge Summary Date of Service April 07, 2017 Dates of Hospitalization Date of Hospital Admission March 29, 2017 at 08:56 Date of Discharge: April 07, 2017 Providers: Admitting Physician: Lilliana Nguyen DO Primary Care Physician: Loren Good MD Attending Physician: Lilliana Nguyen DO Diagnosis at Time of Discharge Diagnosis at Time of Discharge Occipital Lobe CVA Consultations Neurologist Dr. Evy Mulligan Procedures XRay, CTs & MRIs PROCEDURE: MRI STROKE PROTOCOL ([id number]) Pre- and post-contrast brain MRI, non-contrast brain MR angiogram, pre- and postcontrast neck MR angiogram IMPRESSION: BRAIN MRI: Multiple, punctate areas of acute ischemia involving the right occipital lobe. BRAIN MR ANGIOGRAM: Occlusion of the right P2 segment. NECK MR ANGIOGRAM: Occlusion of the left internal carotid artery extending from the proximal segment just after the bifurcation, to the intracranial segment. Reconstitution of the left middle cerebral artery through anterior and posterior communicating arteries as detailed above. Narrowing and occlusion of the left P2 segment of the posterior cerebral artery. High-grade focal stenosis of the origin of the left vertebral artery. Diffuse atherosclerotic narrowing of the vertebral arteries bilaterally. The estimate of stenosis included in the report of the imaging study was calculated using the NASCET method Dictated by: Tone Hdez M.D. on 03/29/2017 at 8:35 Approved by: Tone Hdez M.D. on 03/29/2017 at 8:56 PROCEDURE: MRI BRAIN WITHOUT CONTRAST ([id number]) INDICATIONS: New CVA TECHNIQUE: Non-contrast axial T1 spin echo, axial T2 fast spin echo, sagittal and axial FLAIR, coronal T2 fast spin echo, axial gradient echo, axial diffusion and ADC through the brain. COMPARISON: [facility], , MR STROKE PROTOCOL, 03/29/2017, 7:53. FINDINGS: Image quality: Excellent. CSF spaces: Ventricles appear symmetric in size and shape. Basal cisterns are patent. No extra-axial fluid collections. Brain: No intracranial bleeds or mass effects. There is cerebral volume loss for age. There are periventricular and deep white matter chronic small vessel ischemic changes. Brainstem appears normal. Punctate foci of restricted diffusion noted in the right occipital lobe compatible with acute/subacute infarcts. New, small, punctate focus of restricted effusion is noted posterior and inferior margin of the right occipital lobe compatible with an infarct which has occurred in the interval since prior MRI. Old left occipital subcortical white matter lacunar infarct is noted. Old, small, posterior left occipital cortical infarct is noted. Normal intravascular flow voids are present. Skull and face: Calvarial bone marrow is normal in signal. Orbits are normal. Sinuses: Sinuses and mastoids are clear. IMPRESSION: 1. New, small, but punctate acute right occipital infarct. 2. Punctate foci of restricted diffusion in the right occipital lobe stable compared to prior height compatible with subacute infarcts. 3. Old, small, left occipital infarcts. 4. Mild, diffuse volume loss. 5. Mild periventricular and subcortical white matter, microvascular ischemic changes. 6. No intracranial hemorrhage. Dictated by: Marylou Rojas MD, PhD on 03/31/2017 at 14:13 Approved by: Marylou Rojas MD, PhD on 03/31/2017 at 14:30 Cardiac Echo Impression Echocardiogram Report Name: BILL NGUYEN RStudy Date: 03/30/2017 Height: 66 in Hospital Exam Location: [facility] Weight: 109 lb Gender: Male BSA: 1.5 m2 : 1945 Age: 72 yrs BP: 103/55 mmHg Reason For Study: CVA Ordering Physician: Performed By: Mulu Freedman Interpretation Summary The left ventricle is normal in size. There is no LV thrombus. The ejection fraction is estimated to be 60-65%. The right ventricle is normal in size and function. There is discrete nodular, calcified thickening of the non- coronary cusp. It is not mobile. It is not pedunculated. There is no aortic valve stenosis. No aortic regurgitation is present. The ascending aorta is mildly enlarged. Brief History As per Dr. Nguyen' HPI: Clear "Patient is a 72-year-old male who presents to the hospital with the complaint of left-sided arm and leg numbness and tingling and seeing spots since yesterday. The patient stated that when he woke up yesterday morning he is having left-sided arm numbness and tingling and thought that he slept on his arm wrong however as the day progressed the numbness and tingling did not dissipate and then he started to have numbness and tingling in his left leg and he started having visual changes by seeing spots. The patient then decided to come into the emergency room. At that time CT scan and MRI were done and the patient was found to have a CVA." Patient was admitted to the hospitalist service for further evaluation and treatment. Hospital Course The patient is a 72-year-old male who presented with a CVA CVA most likely secondary to hyperlipidemia and noncompliance with medications. Patient has had a new CVA just as of 03/31/2017. There is minimal to no change in his neurological findings. -Continue aspirin 81 mg daily -Continue Plavix 75 mg daily -Continue Atorvastatin 80 mg daily at bedtime -Consult was obtained with neurologist Dr. Mulligan, her time and expertise is appreciated. We will follow her recommendations. -PT/OT consult -Echo: EF 60-65%, mild aortic enlargement -MR brain and neck (completed) shows a new CVA in the right occipital lobe Patient is emotionally labile. - I have consulted Dr. Gary Salazar of psychiatry and appreciate his time and expertise. 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 Mtz recommends the following: "Recommend start low-dose of Prozac 10 mg daily and Xanax 0.25 mg t.i.d. Again his primary care or [facility] could manage this. Client reportedly will have [facility] Would also recommend that he re-engage with his sister and the [employer]". - The patient's sister visited again today. Patient appears less anxious today so we will hold off on the Xanax. Prozac was started. Hypertension - We have increased lisinopril from 10mg QD to 20mg QD and will continue. - Continue tight blood pressure control Hyperlipidemia -Total cholesterol 252, LDL cholesterol 188 -Continue atorvastatin 80 mg daily at bedtime -We will monitor the patient for adverse side effects from the medication Diet: Heart healthy Disposition: The patient was scheduled to go home 03/31/2017 and to follow-up with his primary care physician as well as his aeronautical engineering teacher (Dr. Daugherty) and Dr. Mulligan with 3 months of aspirin and Plavix therapy. However, on 2016 the patient started to have new onset symptoms that seem to be stroke related. The patient underwent a repeat MRI which showed a new right occipital infarct. We reconsulted speech therapy, occupational therapy and physical therapy. There has been little to no change in the patient's neurological function. I advised the patient that he could continue his current treatment at home, as we were not doing anything for him here that he could not continue at home. The patient does not feel comfortable going home again today due to not feeling well and slightly elevated blood pressure 1 time today. At no time has his systolic blood pressure been recorded over 160. It has rarely gone over 150 and over last 24 hours has been completely normal. He also complains of loose stools which he has had for years Patient states he still has a headache. When I explained to the patient my understanding of the problems that he is having due to his recent stroke, I again explained to the patient that the treatment that we are giving him here in the hospital could be continued safely at home. The patient stated that he did not feel comfortable going home and that he would appeal any discharge order. Patient apparently lives by himself in a motel or hotel room. Psychiatry has seen the patient today and appreciate Dr. Gary Salazar's time and expertise. The patient has agreed to take Prozac for situational depression and Xanax for anxiety. He is also agreed to leave the hospital at noon on 04/07/2017. At this point patient has not requested Xanax and will hold off on the Xanax for now. Patient did well without Xanax and agrees to go home on the Prozac and other medications as listed above on the medicine reconciliation form. He agrees to go home at noon today. His sister will be taking him home. And she agrees with the above plan. Exam Vital Signs (Last) Date Time Temp Pulse Resp B/P Pulse Ox O2 Delivery O2 Flow Rate FiO2 04/07/17 08:34 36.5 90 18 138/59 99 Room Air Exam General: The patient is sitting up in bed resting comfortably and in no apparent distress. HEENT: Head is atraumatic and normocephalic. Eyes: Pupils are equally round and reactive to light and accommodation. Extraocular muscles are intact. Sclera are white, anicteric. Subconjunctival mucosa is pink. Ears and nose are unremarkable. Oropharynx: There are no mucosal lesions, there is no thrush , there is no pharyngitis. Neck: Is supple, there are no nodes, or masses or tenderness. However, there is some tightness of the left sternocleidomastoid muscle, which is a muscle that hurts him when he yawns. Chest: Is clear to auscultation and percussion. There are no rales, rhonchi, wheezes or rubs. Heart: Rate, rhythm is regular. There is no no murmur, rub or gallop. Abdomen: Good bowel sounds are present. Abdomen is soft, nontender, no organomegaly or masses were appreciated. Extremities: Are symmetrical and well perfused. There is no edema, there is no cellulitis, no rash. Neurologic: There are no focal neurological deficits. Cranial nerves II through XII are intact. There are no sensory or motor deficits. Patient has subjective complaints of visual field defects and visual hallucinations. He admits that these are improving and not as severe. Psychiatric: Patients mood is significant for emotional lability and he is quite anxious. Genital: Deferred Rectal: Deferred Test 03/29/17 04:40 03/29/17 05:50 04/02/17 05:03 04/03/17 08:44 Hold Purple Top Tube Received (Received) Prothrombin Time 10.4sec (8.1-12.5) Prothromb Time International Ratio 0.97ratio Activated Partial Thromboplast Time 24.7sec (22.8-33.0) Hold Blue Top Tube Received (Received) Hemoglobin A1c 5.0% (4.8-5.6) Troponin T 0.010ug/L (0.0-0.011) Triglycerides Level 63mg/dL (0-149) Cholesterol Level 252mg/dL (100-199) LDL Cholesterol, Calculated 188.400mg/dL (0-99) VLDL Cholesterol 12.600mg/dL HDL Cholesterol 51mg/dL (>39) Cholesterol/HDL Ratio 4.94 (0.0-4.4) Hold Red Top Tube Received (Received) Hold [place] Top Tube Received (Received) Hold [place] Top Tube Received (Received) Alcohols < 10mg/dL (0-10) Urine Color Yellow (YELLOW) Urine Appearance Clear (CLEAR,HAZY) Urine pH 6.0 (5.0-8.0) Urine Specific [place] 1.020 (1.003-1.035) Urine Protein Negativemg/dL (NEG,TRACE) Urine Glucose (UA) Negativemg/dL (NEGATIVE) Urine Ketones Negativemg/dL (NEGATIVE) Urine Occult Blood Negative (NEGATIVE) Urine Nitrite Negative (NEGATIVE) Urine Bilirubin Negative (NEGATIVE) Urine Urobilinogen Normalmg/dL (NORMAL) Urine Leukocyte Esterase Negative (NEGATIVE) Urine RBC 0-2/hpf (0-2) Urine WBC 0-5/hpf (0-5) Urine Epithelial Cells None/hpf (NONE-MOD) Urine Crystals None seen (NONE SEEN) Urine Bacteria None/hpf (NONE-FEW) Urine Hyaline Casts None/lpf (NONE) Urine Granular Casts None seen (NONE SEEN) Urine Waxy Casts None seen (NONE SEEN) Urine Red Blood Cell Casts None seen (NONE SEEN) Urine White Blood Cell Casts None seen (NONE SEEN) Urine Mucus None seen (None Seen) Urine Trichomonas None seen (NONE SEEN) Urine Yeast None (NONE SEEN) Urinalysis Comment None Urine Culture Reflexed Not indicated Urine Opiates Screen Negative Urine Methadone Screen Negative Urine Barbiturates Screen Negative Urine Amphetamines Screen Negative Urine Benzodiazepines Screen Negative Urine Cocaine Metabolite Screen Negative Urine Cannabinoids Screen Negative White Blood Count 8.2th/mm3 (3.8-10.1) Red Blood Count 4.27mil/mm3 (4.40-5.80) Hemoglobin 14.5g/dL (13.8-17.2) Hematocrit 41.5% (41.0-50.0) Mean Corpuscular Volume 97.2fL (81-100) Mean Corpuscular Hemoglobin 34.0pg (27.0-35.0) Mean Corpuscular Hemoglobin Concent 34.9% (32.0-37.0) Red Cell Distribution Width 13.3% (12.3-15.4) Platelet Count 253bil/L (150-400) Neutrophils (%) (Auto) 54.2% (40-74) Lymphocytes (%) (Auto) 28.4% (14-46) Monocytes (%) (Auto) 10.0% (4-12) Eosinophils (%) (Auto) 6.3% (0-5) Basophils (%) (Auto) 1.0% (0-3) Magnesium Level 2.1mg/dL (1.6-2.6) Total Bilirubin 0.6mg/dL (0.0-1.2) Aspartate Amino Transf (AST/SGOT) 24U/L (0-50) Alanine Aminotransferase (ALT/SGPT) 12U/L (0-44) Alkaline Phosphatase 80U/L (25-160) Total Protein 7.3g/dL (6.4-8.4) Albumin 4.3g/dL (3.4-5.0) Sodium Level 139mEq/L (134-144) Potassium Level 4.5mEq/L (3.5-5.2) Chloride Level 101mEq/L (97-108) Carbon Dioxide Level 27mmol/L (18-29) Blood Urea Nitrogen 16mg/dL (8-27) Creatinine 0.78mg/dL (0.76-1.27) Estimat Glomerular Filtration Rate 104mL/min (>59) Glucose Level 85mg/dL (60-99) Calcium Level 8.9mg/dL (8.5-10.1) Discharge Medications Discharge Medications Aspirin Chew (Aspirin Chew) 81 Mg Chew 81 MG PO DAILY Prescribed by: LAURIE BALBUENA MD Atorvastatin Calcium (Atorvastatin Calcium) 40 Mg Tablet 80 MG PO HS Prescribed by: LAURIE BALBUENA MD Cholecalciferol (Vitamin D3) (Vitamin D) 5,000 Unit Capsule 5,000 UNIT PO QAM ( Reported) Clopidogrel (Clopidogrel) 75 Mg Tablet 75 MG PO DAILY Prescribed by: LAURIE BALBUENA MD Fluoxetine (Prozac) 10 Mg Capsule 10 MG PO DAILY Prescribed by: LAURIE BALBUENA MD Lisinopril (Lisinopril) 10 Mg Tablet 10 MG PO BID Prescribed by: LAURIE BALBUENA MD Multivitamin (Multivitamins) 1 Each Capsule 1 EACH PO DAILY (Reported) Simvastatin (Simvastatin) 20 Mg Tablet 20 MG PO HS (Reported) Followup Plan Disposition: Patient is being discharged home with his sister. Discharge Diet: Heart Healthy Discharge Activity: No restrictions (The patient may resume usual activities gradually as tolerated.) Follow-up Provider: Loren Good MD Follow-up with PCP in: 1 week Provider: Michelle Mulligan MD Follow-up in: 2 weeks Time spent Time spent on discharging this patient was greater than 35 minutes, over half of which was involved in counseling and coordination of care. Jabier Balbuena MD April 08, 2017 01:31
== END 2017-04-07 15:15 | disposition home health service (06) | DRG 65 ==
LOC: EDBD → SED 04:25 → OBSVTOIN 08:56 → MPC 08:56
PROVIDERS: ADMIT Neuromusculoskeletal Medicine & OMM; ATTEND Neuromusculoskeletal Medicine & OMM
DX: I63.10 Cerebral infarction due to embolism of unspecified precerebral artery (principal); E46 Unspecified protein-calorie malnutrition; Z68.1 Body mass index [BMI] 19.9 or less, adult; R44.1 Visual hallucinations; Z91.120 Patient's intentional underdosing of medication regimen due to financial hardship; T45.526A Underdosing of antithrombotic drugs, initial encounter; H53.413 Scotoma involving central area, bilateral; Z87.891 Personal history of nicotine dependence; E78.5 Hyperlipidemia, unspecified; R20.8 Other disturbances of skin sensation; H26.9 Unspecified cataract; F43.22 Adjustment disorder with anxiety

== ENCOUNTER 2017-04-13 08:34 | Emergency (ER) | payer MEDICARE, MEDICAID ==
[~2017-04-13] VITALS: Ht 167.6 cm; Wt 50.0 kg
[~2017-04-13 08:34] MED LIST changes: +ASPI81TA3 PO; +ATOR40TA69 PO; +CHOL500051 PO; +CLOP75TA28 PO; +FLUO10CA30 PO; +LISI10TA PO
[2017-04-13 08:36] VITALS: BP 140/58; PULSE 95; RESP 16; O2SAT 100
--- NOTE | 2017-04-13 08:39 | ED.REPORT ---
HPI-Neurologic Deficit Date of Service April 13, 2017 ED Provider: Sachin Jaeger MD Patient is a 72 year old male with a history of CVA and COPD who presents to the ED via EMS due to a headache that woke him up this morning. The patient reports that he feels dehydrated and constipated. He states that he had a stroke in March, where he had numbness and tingling in his left arm and face. Patient states that he also had a headache before his stroke happened and was concerned he might be having another stroke. He currently still experiences minor numbness that is not new but does not have numbness in his face. The patient has taken Tylenol for his headaches before but this headache was worse than his normal headaches. He rates the pain as a 6/10. Nursing Notes Stated Complaint: STROKE Chief Complaint: Neuro Symptoms/ Deficits Nursing Notes Reviewed: Yes Allergies: Coded Allergies: No Known Drug Allergies (Verified Allergy, Unknown, 10/24/16) Scheduled Aspirin Chew (Aspirin Chew) 81 Mg Chew 81 MG PO DAILY Atorvastatin Calcium (Atorvastatin Calcium) 40 Mg Tablet 80 MG PO HS Cholecalciferol (Vitamin D3) (Vitamin D) 5,000 Unit Capsule 5,000 UNIT PO QAM Clopidogrel (Clopidogrel) 75 Mg Tablet 75 MG PO DAILY Fluoxetine (Prozac) 10 Mg Capsule 10 MG PO DAILY Lisinopril (Lisinopril) 10 Mg Tablet 10 MG PO BID Multivitamin (Multivitamins) 1 Each Capsule 1 EACH PO DAILY Simvastatin (Simvastatin) 20 Mg Tablet 20 MG PO HS Scheduled PRN Docusate Sodium (Colace) 100 Mg Capsule 100 MG PO BID PRN PRN For Constipation General Time Seen by Provider: 08:43 Chief Complaint Other (headache) Hx Obtained From: Patient Arrived By: Ambulance Sudden in Onset?: Yes Onset Occurred: 1 - 4 hours ago Symptom Duration: Since onset Location: : Head Severity: Current: Pain level 6 out of 10 Related History: Reports: CVA/TIA Recent Healthcare: Recent doctor visit, Recent hospitalization Similar Sx Previous: Yes Risk Factors NIH Stroke Scale Level of Consciousness: Alert and responsive (0) Ask Month & Age: Both questions right (0) Open/Close Eyes/Hand Mems Integration Engineer: Performs both tasks (0) Horizontal EO Movements: None (0) Visual Garcia: No visual loss (0) Facial Palsy: Normal symmetry (0) Right Arm Motor Drift (10s): No drift 10 sec (0) Left Arm Motor Drift (10s): No drift 10 sec (0) Right Leg Motor Drift (5s): No drift 5 sec (0) Left Leg Motor Drift (5s): No drift 5 sec (0) Limb Ataxia FNF/Heel-Moses: No ataxia (0) Sensation (Arms/Legs/Face): Pinprick less sharp (1) Language Aphasia: No aphasia, normal (0) Dysarthria: No dysarthria, normal (0) Extinction/Inattention: No exctinct/inattent (0) NIHSS Score: 0 Time NIHSS Performed: 08:48 Date NIHSS Performed: April 13, 2017 CVA Risk Stratification Age >60 Hyperlipidemia Prior CVA/TIANo EtOH use RF Statements: Risk factors reviewed Past Medical History Past Medical History Notes: PCP: Dr. Loren Good Past Medical History COPD Chronic low back pain Chronic diarrhea Environmental allergies Reports: Hyperlipidemia Past Surgical History Colonoscopy Endoscopy hand surgery thumb amputation Family History Reports: Coronary artery disease Smoking History Former Smoker Social History Alcohol Use: Denies alcohol use Drug Use: Denies drug use Other Social History: Local resident Ambulatory Status Independent Review of Systems Respiratory: Denies: Non-productive cough, Shortness of breath GI: Reports: Constipation Neurologic: Reports: Headache, Denies: Numbness, Weakness Complete sys rev & neg: except as marked. Female: Reports: Urinary urgency, Denies: Incontinence Physical Exam Initial Vital Signs Vital Signs (First) Date Time Temp Pulse Resp B/P Pulse Ox O2 Delivery O2 Flow Rate FiO2 04/13/17 08:36 37.1 95 16 140/58 100 Room Air 04/13/17 11:20 2 Initial VS: Reviewed General/Constitutional: Awake, Alert Appearance / Presentation: Positive: Frail thin frail appears dehydrated Head / Eyes: Atraumatic, Normocephalic, PERRL, EOMI Respiratory / Chest: Atraumatic, Breath sounds NL, Breath sounds = bilat, No respiratory distress Cardiovascular: Heart rate NL, Regular rhythm, Heart sounds NL Neurologic: Oriented X3, Speech NL, No motor deficits, No sensory deficits, Cerebellar NL, Memory NL partial paresthesia of left arm Upper Extremity / MS: Atraumatic, Full range of motion Lower Extremity / Pelvis / MS: Atraumatic, Full range of motion Skin: Atraumatic, Color NL, No rash, Warm, Dry Psychiatric: Affect NL, Mood NL Interpretation & Diagnostics Lab Results Interpretation Result Diagram: 04/13/17 0920 04/13/17 0920 Test 04/13/17 08:54 04/13/17 09:20 04/13/17 10:30 Prothrombin Time 10.7sec (8.1-12.5) Prothromb Time International Ratio 1.00ratio Activated Partial Thromboplast Time 25.3sec (22.8-33.0) White Blood Count 10.7th/mm3 (3.8-10.1) Red Blood Count 4.03mil/mm3 (4.40-5.80) Hemoglobin 13.3g/dL (13.8-17.2) Hematocrit 39.8% (41.0-50.0) Mean Corpuscular Volume 98.8fL (81-100) Mean Corpuscular Hemoglobin 33.0pg (27.0-35.0) Mean Corpuscular Hemoglobin Concent 33.4% (32.0-37.0) Red Cell Distribution Width 13.1% (12.3-15.4) Platelet Count 289bil/L (150-400) Neutrophils (%) (Auto) 78.4% (40-74) Lymphocytes (%) (Auto) 9.4% (14-46) Monocytes (%) (Auto) 11.3% (4-12) Eosinophils (%) (Auto) 0.4% (0-5) Basophils (%) (Auto) 0.3% (0-3) Sodium Level 135mEq/L (134-144) Potassium Level 4.3mEq/L (3.5-5.2) Chloride Level 95mEq/L (97-108) Carbon Dioxide Level 28mmol/L (18-29) Blood Urea Nitrogen 14mg/dL (8-27) Creatinine 0.90mg/dL (0.76-1.27) Estimat Glomerular Filtration Rate 88mL/min (>59) Glucose Level 141mg/dL (60-99) Calcium Level 9.4mg/dL (8.5-10.1) Total Bilirubin 0.6mg/dL (0.0-1.2) Aspartate Amino Transf (AST/SGOT) 26U/L (0-50) Alanine Aminotransferase (ALT/SGPT) 50U/L (0-44) Alkaline Phosphatase 82U/L (25-160) Total Protein 7.2g/dL (6.4-8.4) Albumin 4.0g/dL (3.4-5.0) Hold Iverson Top Tube Received (Received) Urine Color Straw (YELLOW) Urine Appearance Hazy (CLEAR,HAZY) Urine pH 6.0 (5.0-8.0) Urine Specific [place] 1.005 (1.003-1.035) Urine Protein Negativemg/dL (NEG,TRACE) Urine Glucose (UA) Negativemg/dL (NEGATIVE) Urine Ketones Negativemg/dL (NEGATIVE) Urine Occult Blood Negative (NEGATIVE) Urine Nitrite Negative (NEGATIVE) Urine Bilirubin Negative (NEGATIVE) Urine Urobilinogen Normalmg/dL (NORMAL) Urine Leukocyte Esterase Negative (NEGATIVE) Urine RBC 0-2/hpf (0-2) Urine WBC 0-5/hpf (0-5) Urine Epithelial Cells Occasional/hpf (NONE-MOD) Urine Crystals None seen (NONE SEEN) Urine Bacteria None/hpf (NONE-FEW) Urine Hyaline Casts None/lpf (NONE) Urine Granular Casts None seen (NONE SEEN) Urine Waxy Casts None seen (NONE SEEN) Urine Red Blood Cell Casts None seen (NONE SEEN) Urine White Blood Cell Casts None seen (NONE SEEN) Urine Mucus None seen (None Seen) Urine Trichomonas None seen (NONE SEEN) Urine Yeast None (NONE SEEN) Urinalysis Comment None Urine Culture Reflexed Not indicated ECG Interpretation ECG Interpretation: probable anteroseptal infarct, old Time: 09:22 Normal ECG Interpretation: Normal rate (76), Normal sinus rhythm CT Head Interpretation IMPRESSION: 1. No acute intracranial abnormality. Dictated by: Feliberto Whipple M.D. on 04/13/2017 at 10:14 Approved by: Feliberto Whipple M.D. on 04/13/2017 at 10:17 Interpretation / Wet Read by: Interpret - Radiologist Re-Eval/Medical Decision Med Decision/Clinical Course Patient presents for headache. Not consistent with subarachnoid, not the worst headache of his life and not thunderclap in onset. He denies new focal neurologic deficits. He does report that he continues to have left-sided paresthesias which were present during his last hospitalization one stroke was diagnosed. CT is unremarkable, blood pressure is normal, and age stroke scale reveals no new neurologic deficits. Patient additionally had some reported constipation and will be prescribed Colace. This was briefly discussed with neurology who agreed with plan. Strict return and follow-up precautions given. Source of Hx: Old records Re-Evaluation/Progress #1: Time of Eval: 10:52 Patient Status: Pain improved Re-Evaluation/Progress #2: Time of Eval: 11:35 Re-Evaluation/Progress Note: Discussed results and plan for discharge with patient. The patient understands and agrees to the plan for discharge. All questions were addressed. NIH Stroke Scale : Level of Consciousness: Alert and responsive (0) Ask Month & Age: Both questions right (0) Open/Close Eyes/Hand Mems Integration Engineer: Performs both tasks (0) Horizontal EO Movements: None (0) Visual Garcia: No visual loss (0) Facial Palsy: Normal symmetry (0) Right Arm Motor Drift (10s): No drift 10 sec (0) Left Arm Motor Drift (10s): No drift 10 sec (0) Right Leg Motor Drift (5s): No drift 5 sec (0) Left Leg Motor Drift (5s): No drift 5 sec (0) Limb Ataxia FNF/Heel-Moses: No ataxia (0) Sensation (Arms/Legs/Face): P-prick dull but felt (1) Language Aphasia: No aphasia, normal (0) Dysarthria: No dysarthria, normal (0) Extinction/Inattention: No exctinct/inattent (0) NIHSS Score: 0 Time NIHSS Performed: 08:48 Date NIHSS Performed: April 13, 2017 Consultation : Referral / Consult Name: Michelle Mulligan MD Consulted With: Neurology Call Returned at: 11:32 Superintendent Car Construction: Agrees with eval, Agrees with plan Note: Agrees that the patient does not need further testing for a stroke. Counseled Regarding: Diagnosis, Lab results, Need for follow-up, When/why to return to ED Discharge & Departure Impression: Primary Impression: Headache Headache type: unspecified Headache chronicity pattern: acute headache Intractability: not intractable Qualified Code: R51 - Headache Disposition: Home Discharge Condition All VS Reviewed: Yes Condition: Stable Patient Instructions: Effects of a Stroke (GEN), Self Care Measures After a Stroke (ED), Stroke (GEN) Additional Instructions: Thank you for trusting us with your care today. You were seen for a headache. Your labs were reassuring and it does not appear that you had a stroke. You can take Naproxen as needed for pain. Follow up with your primary care physician next week. Please return to the emergency department if you develop any new or worsening symptoms including fever, weakness, numbness of one side of your body, or tingling. Referrals: Lroen Good MD (PCP) Chiki Attestation Portions of this note were transcribed by Temi Tomas. I, Dr. Allegra Yancey personally performed the history, physical exam and medical decision-making; I reviewed and confirmed the accuracy of the information in the transcribed note. Signed by: Chiki Brody, 04/13/17 and 0618. copies to: Loren Good MD, Timothy S DO April 13, 2017 08:39 Liliana Tomas April 13, 2017 08:50
[2017-04-13] MEDS ORDERED: 0.9% Sodium Chloride 1,000 ML IV ONE (08:54)
[2017-04-13 09:30] LABS: BASOPHILS % (AUTO) 0.3 % (0-3); EOSINOPHILS % (AUTO) 0.4 % (0-5); MONOCYTES % (AUTO) 11.3 % (4-12); Mean Corpuscular Volume 98.8 fL (81-100); NEUTROPHILS % (AUTO) 78.4 % (40-74); Platelet Count 289 bil/L (150-400)
--- NOTE | 2017-04-13 10:19 | DRSVH ---
PROCEDURE: CT BRAIN WITHOUT CONTRAST ([id number]) INDICATIONS: headache TECHNIQUE: Noncontrast 4.5 mm thick angled axial sections acquired from the foramen magnum to the vertex, with c oronal reformats. COMPARISON: [facility], CT, CT BRAIN WO CON, 03/29/2017, 5:17. FINDINGS: Image quality: Excellent. CSF spaces: Basal cisterns are patent. No extra-axial fluid collections. Ventricles are normal in size and shape. Brain: No intracranial hemorrhage, mass, or mass effect. Santana-white matter interface is preserved. Skull and face: Calvarium and visualized facial bones appear intact, without suspicious lesions. Sinuses: Visualized sinuses and mastoids are clear. IMPRESSION: 1. No acute intracranial abnormality. Dictated by: Feliberto Whipple M.D. on 04/13/2017 at 10:14 Approved by: Feliberto Whipple M.D. on 04/13/2017 at 10:17
[2017-04-13 10:52] LABS: APPEARANCE,URINE HAZY (CLEAR,HAZY); COLOR,URINE STRAW (YELLOW); OCCULT BLOOD,URINE NEGATIVE (NEGATIVE); UROBILINOGEN,URINE NORMAL (NORMAL)
[2017-04-13 11:20] VITALS: BP 139/56; PULSE 71; RESP 17; O2SAT 100
[2017-04-13] MEDS ORDERED: DOCU-41 PO (11:38)
[2017-04-13 11:51] VITALS: BP 139/56; PULSE 71; RESP 17; O2SAT 100
== END 2017-04-13 11:51 | disposition home or self-care (01) ==
LOC: EDBD → SED 08:34
DX: R51 Headache (principal); E86.0 Dehydration; K59.00 Constipation, unspecified; R20.0 Anesthesia of skin; J44.9 Chronic obstructive pulmonary disease, unspecified; E78.5 Hyperlipidemia, unspecified; Z86.73 Personal history of transient ischemic attack (TIA), and cerebral infarction without residual deficits; Z79.82 Long term (current) use of aspirin; Z87.891 Personal history of nicotine dependence
CPT/HCPCS: 36415; 70450; 80053; 81000; 85025; 85610; 85730; 93005; 96360; 99285; J7030

== ENCOUNTER 2017-04-15 09:23 | Emergency (ER) | payer MEDICARE, MEDICAID ==
[~2017-04-15] VITALS: Ht 167.6 cm; Wt 50.0 kg
[~2017-04-15 09:23] MED LIST changes: +DOCU-41 PO
[2017-04-15 09:28] VITALS: BP 139/66; PULSE 11; RESP 22; O2SAT 99
--- NOTE | 2017-04-15 09:42 | ED.REPORT ---
HPI-Dyspnea / Wheezing Date of Service Apr 15, 2017 ED Provider: Sachin Jaeger MD Patient is a 72 year old male with a history of COPD, hypertension and CVA who presents to the ED complaining of cough, inability to urinate or deficate, and shortness of breath onset this morning. Associated symptoms include diaphoresis , abdominal pain, a productive cough, shakiness, urinary retention and constipation. He denies trouble walking. Patient reports that he last urinated yesterday and has been drinking plenty of fluids. The patient was seen 04/13/17 for a headache and reported he felt dehydrated. He states that the medication he recieved at this last visit was not helpful and he has been unable to have a bowel movement since then. Nursing Notes Stated Complaint: CAN'T BREATHE/ WEAK Chief Complaint: Respiratory Complaints Nursing Notes Reviewed: Yes Allergies: Coded Allergies: No Known Drug Allergies (Verified Allergy, Unknown, 10/24/16) Scheduled Aspirin Chew (Aspirin Chew) 81 Mg Chew 81 MG PO DAILY Atorvastatin Calcium (Atorvastatin Calcium) 40 Mg Tablet 80 MG PO HS Cholecalciferol (Vitamin D3) (Vitamin D) 5,000 Unit Capsule 5,000 UNIT PO QAM Clopidogrel (Clopidogrel) 75 Mg Tablet 75 MG PO DAILY Fluoxetine (Prozac) 10 Mg Capsule 10 MG PO DAILY Lisinopril (Lisinopril) 10 Mg Tablet 10 MG PO BID Multivitamin (Multivitamins) 1 Each Capsule 1 EACH PO DAILY Simvastatin (Simvastatin) 20 Mg Tablet 20 MG PO HS Scheduled PRN Docusate Sodium (Colace) 100 Mg Capsule 100 MG PO BID PRN PRN For Constipation General Time Seen by MD: 09:42 Chief Complaint Shortness of breath Hx Obtained From: Patient Arrived By: Walk-in Sudden in Onset?: Yes Onset Occurred: 1 - 4 hours ago Symptom Duration: Since onset Radiation: : Does not radiate Recent Healthcare: No recent hospitalization, Recent doctor visit Past Medical History Past Medical History Notes: PCP: Dr. Loren Good Past Medical History COPD CVA Chronic low back pain Chronic diarrhea Environmental allergies Reports: Hyperlipidemia Past Surgical History Colonoscopy Endoscopy hand surgery thumb amputation Family History Reports: Coronary artery disease Smoking History Former Smoker Social History Alcohol Use: Denies alcohol use Drug Use: Denies drug use Other Social History: Local resident Ambulatory Status Independent Review of Systems Respiratory: Reports: Prod cough, clear, Shortness of breath Cardiovascular: Denies: Chest pain Skin: Reports Diaphoresis Complete sys rev & neg: except as marked. GI: Reports: Abdominal pain, Constipation Male: Reports Urination decreased Neurologic: Denies: Problem walking Physical Exam Initial Vital Signs Vital Signs (First) Date Time Temp Pulse Resp B/P Pulse Ox O2 Delivery O2 Flow Rate FiO2 04/15/17 09:28 37.6 11 22 139/66 99 Room Air Initial VS: Reviewed General/Constitutional: Awake, Alert Appearance / Presentation: Positive: Frail maloderous Neck: Atraumatic, Supple, Full range of motion Respiratory / Chest: Atraumatic, No respiratory distress Cardiovascular: Heart rate NL, Regular rhythm, Heart sounds NL Abdomen: Atraumatic, Soft, Non-tender Skin: Atraumatic, Color NL, No rash, Warm, Dry Neurologic: Oriented X3, Speech NL, No motor deficits, No sensory deficits Head / Eyes: Atraumatic, Normocephalic, PERRL, EOMI Rectum / Perineum: Atraumatic, No fecal impaction rectal tone: light brown stool Psychiatric: Affect NL, Mood NL Interpretation & Diagnostics Lab Results Interpretation Result Diagram: 04/15/17 1015 04/15/17 1015 Test 04/15/17 10:15 04/15/17 11:30 White Blood Count 9.6th/mm3 (3.8-10.1) Red Blood Count 4.06mil/mm3 (4.40-5.80) Hemoglobin 13.4g/dL (13.8-17.2) Hematocrit 40.1% (41.0-50.0) Mean Corpuscular Volume 98.8fL (81-100) Mean Corpuscular Hemoglobin 33.0pg (27.0-35.0) Mean Corpuscular Hemoglobin Concent 33.4% (32.0-37.0) Red Cell Distribution Width 12.8% (12.3-15.4) Platelet Count 287bil/L (150-400) Neutrophils (%) (Auto) 76.2% (40-74) Lymphocytes (%) (Auto) 7.9% (14-46) Monocytes (%) (Auto) 14.9% (4-12) Eosinophils (%) (Auto) 0.5% (0-5) Basophils (%) (Auto) 0.3% (0-3) Sodium Level 132mEq/L (134-144) Potassium Level 4.0mEq/L (3.5-5.2) Chloride Level 91mEq/L (97-108) Carbon Dioxide Level 26mmol/L (18-29) Blood Urea Nitrogen 16mg/dL (8-27) Creatinine 0.87mg/dL (0.76-1.27) Estimat Glomerular Filtration Rate 91mL/min (>59) Glucose Level 132mg/dL (60-99) Calcium Level 9.0mg/dL (8.5-10.1) Magnesium Level 1.8mg/dL (1.6-2.6) Total Bilirubin 0.5mg/dL (0.0-1.2) Aspartate Amino Transf (AST/SGOT) 30U/L (0-50) Alanine Aminotransferase (ALT/SGPT) 34U/L (0-44) Alkaline Phosphatase 84U/L (25-160) Troponin T < 0.010ug/L (0.0-0.011) Total Protein 7.2g/dL (6.4-8.4) Albumin 3.9g/dL (3.4-5.0) Hold Iverson Top Tube Received (Received) Urine Color Straw (YELLOW) Urine Appearance Hazy (CLEAR,HAZY) Urine pH 6.0 (5.0-8.0) Urine Specific [place] 1.005 (1.003-1.035) Urine Protein Negativemg/dL (NEG,TRACE) Urine Glucose (UA) Negativemg/dL (NEGATIVE) Urine Ketones Negativemg/dL (NEGATIVE) Urine Occult Blood Negative (NEGATIVE) Urine Nitrite Negative (NEGATIVE) Urine Bilirubin Negative (NEGATIVE) Urine Urobilinogen Normalmg/dL (NORMAL) Urine Leukocyte Esterase Negative (NEGATIVE) Urine RBC 0-2/hpf (0-2) Urine WBC 0-5/hpf (0-5) Urine Epithelial Cells Occasional/hpf (NONE-MOD) Urine Crystals None seen (NONE SEEN) Urine Bacteria None/hpf (NONE-FEW) Urine Hyaline Casts None/lpf (NONE) Urine Granular Casts None seen (NONE SEEN) Urine Waxy Casts None seen (NONE SEEN) Urine Red Blood Cell Casts None seen (NONE SEEN) Urine White Blood Cell Casts None seen (NONE SEEN) Urine Mucus None seen (None Seen) Urine Trichomonas None seen (NONE SEEN) Urine Yeast None (NONE SEEN) Urinalysis Comment None Urine Culture Reflexed Not indicated ECG Interpretation ECG Interpretation: probable old anterior infarct Time: 10:13 Interpreted by: ED physician Normal ECG Interpretation: Normal rate (87), Normal sinus rhythm X-Ray Chest Interpretation Chest Xray Interpretation: IMPRESSION: No acute disease. Unchanged chronic interstitial changes and mild hyperinflation. Dictated by: Tone Hdez M.D. on 04/15/2017 at 11:13 Approved by: Tone Hdez M.D. on 04/15/2017 at 11:15 View: Portable, 1 view Interpretation / Wet Read by: Interpret - Radiologist Re-Eval/Medical Decision Med Decision/Clinical Course Exam is reassuring, the patient has successfully voided, rectal exam is performed and he does not have a fecal impaction or hard stool in the rectal vault. His abdominal exam is benign. I see no indication for any advanced imaging. In terms of his shortness of breath he exhibits absolutely no signs or other findings of any acute cardiopulmonary process. Patient is given a dose of magnesium citrate. And will be discharged. Return and follow-up precautions given. Re-Evaluation/Progress : Time of Eval: 12:48 Re-Evaluation/Progress Note: Patient has filled 2 urinals. Discussed results and plan for discharge. The patient understands and agrees to the plan. All questions were addressed. Counseled Regarding: Diagnosis, Lab results, Need for follow-up, When/why to return to ED Discharge & Departure Impression: Primary Impression: Constipation Constipation type: unspecified constipation type Qualified Code: K59.00 - Constipation, unspecified Disposition: Home Discharge Condition All VS Reviewed: Yes Condition: Stable Additional Instructions: Follow-up with your primary care doctor for further evaluation. Take your your medications including stool softeners daily as planned. Be sure to stay hydrated and eat meals regularly. Return to ER as needed for any concerning signs or symptoms. Referrals: Loren Good MD (PCP) Josefinaibregina Attestation Portions of this note were transcribed by Temi Tomas. I, Dr. Allegra Yancey personally performed the history, physical exam and medical decision-making; I reviewed and confirmed the accuracy of the information in the transcribed note. Signed by: Chiki Brody, 04/15/17 and 1000 copies to: Loren Good MD, Timothy S DO Apr 15, 2017 09:42 Liliana Tomas Apr 15, 2017 09:56
[2017-04-15] MEDS ORDERED: 0.9% Sodium Chloride 1,000 ML IV ONE (09:54)
[2017-04-15 10:29] LABS: BASOPHILS % (AUTO) 0.3 % (0-3); EOSINOPHILS % (AUTO) 0.5 % (0-5); MONOCYTES % (AUTO) 14.9 % (4-12); Mean Corpuscular Volume 98.8 fL (81-100); NEUTROPHILS % (AUTO) 76.2 % (40-74); Platelet Count 287 bil/L (150-400)
--- NOTE | 2017-04-15 11:16 | DRSVH ---
PROCEDURE: X-RAY CHEST, TWO VIEWS ([id number]) INDICATIONS: cough TECHNIQUE: 2 views of the chest were acquired. COMPARISON: [facility], CR, XR CHEST 1VW (PORTABLE), 01/09/2017, 18:08. FINDINGS: Surgical changes and devices: None. Lungs and pleura: No pleural effusions or pneumothorax. Lungs are clear. Scattered diffuse interst itial opacities which are unchanged prior the lungs are mildly hyperinflated Mediastinum: Mediastinal contours are normal. Heart size is normal. Bones and chest wall: No suspicious bony abnormalities. Soft tissues appear unremarkable. Lateral curvature of the spine. IMPRESSION: No acute disease. Unchanged chronic interstitial changes and mild hyperinflation. Dictated by: Tone Hdez M.D. on 04/15/2017 at 11:13 Approved by: Tone Hdez M.D. on 04/15/2017 at 11:15
[2017-04-15 11:23] LABS: Magnesium 1.8 mg/dL (1.6-2.6)
[2017-04-15 11:24] LABS: TROPONIN T < 0.010 ug/L (0.0-0.011)
[2017-04-15 12:02] VITALS: BP 121/67; PULSE 71; RESP 17; O2SAT 98
[2017-04-15 12:18] LABS: APPEARANCE,URINE HAZY (CLEAR,HAZY); COLOR,URINE STRAW (YELLOW); OCCULT BLOOD,URINE NEGATIVE (NEGATIVE); UROBILINOGEN,URINE NORMAL (NORMAL)
[2017-04-15 13:14] VITALS: BP 102/67; PULSE 79; RESP 17; O2SAT 98
== END 2017-04-15 13:15 | disposition home or self-care (01) ==
LOC: EDBD 09:23 → SED 09:23
DX: K59.00 Constipation, unspecified (principal); R33.9 Retention of urine, unspecified; R06.02 Shortness of breath; J44.9 Chronic obstructive pulmonary disease, unspecified; I10 Essential (primary) hypertension; Z86.73 Personal history of transient ischemic attack (TIA), and cerebral infarction without residual deficits; E78.5 Hyperlipidemia, unspecified; G89.29 Other chronic pain; Z79.82 Long term (current) use of aspirin; Z87.891 Personal history of nicotine dependence
CPT/HCPCS: 36415; 51798; 71020; 80053; 81000; 83735; 84484; 85025; 93005; 96360; 99285; J7030

== ENCOUNTER 2017-04-19 21:16 | Emergency (ER) | payer MEDICARE, MEDICAID ==
[~2017-04-19] VITALS: Ht 167.6 cm; Wt 50.0 kg
[2017-04-19 21:33] VITALS: BP 143/66; PULSE 90; RESP 18; O2SAT 99
[2017-04-19] MEDS ORDERED: 0.9% Sodium Chloride 500 ML IV ONE (21:50)
--- NOTE | 2017-04-19 22:02 | ED.REPORT ---
HPI-Dyspnea / Wheezing Date of Service Apr 19, 2017 ED Provider: Clifton Giles MD The patient is a 72 year old male with a medical history including COPD, CVA, chronic diarrhea, and hypertension who presents to the ED reporting left foot pain and shortness of breath onset this afternoon. The pain is located just below his medial malleolus and is described as "sharp" in nature with radiation up his leg. The patient also reports headache, lightheadedness, nausea, fever, chills, chronic back pain, recent weight loss (40lb in 3 years), and one week of productive cough with white phlegm. He denies other symptoms. The patient was recently seen in the ED on 04/15/17 with constipation. Nursing Notes Stated Complaint: LEFT LEG PAIN, SHORTNESS OF BREATH Chief Complaint: General Complaint Nursing Notes Reviewed: Yes Allergies: Coded Allergies: No Known Drug Allergies (Verified Allergy, Unknown, 04/19/17) Scheduled Aspirin Chew (Aspirin Chew) 81 Mg Chew 81 MG PO DAILY Atorvastatin Calcium (Atorvastatin Calcium) 40 Mg Tablet 80 MG PO HS Cholecalciferol (Vitamin D3) (Vitamin D) 5,000 Unit Capsule 5,000 UNIT PO QAM Clopidogrel (Clopidogrel) 75 Mg Tablet 75 MG PO DAILY Fluoxetine (Prozac) 10 Mg Capsule 10 MG PO DAILY Lisinopril (Lisinopril) 10 Mg Tablet 10 MG PO BID Multivitamin (Multivitamins) 1 Each Capsule 1 EACH PO DAILY Simvastatin (Simvastatin) 20 Mg Tablet 20 MG PO HS Scheduled PRN Docusate Sodium (Colace) 100 Mg Capsule 100 MG PO BID PRN PRN For Constipation General Time Seen by MD: 21:45 Chief Complaint Shortness of breath, Other (Left Foot Pain) Hx Obtained From: Patient Arrived By: Walk-in Sudden in Onset?: No Onset Occurred: 5 - 8 hours ago Symptom Duration: Since onset Location: : Back (And Left Foot) Quality: Painful, Sharp Severity: Current: Moderate Severity: Maximum: Moderate Pertinent Negative: Relieved by nothing Context Related History: Reports: COPD Recent Healthcare: Recent doctor visit Risk Factors PERC Rule Age 50 or over One or more crit "Yes", PERC rule not satisfied Well's Criteria for PE Well's PE Score: 0-2 pts (low risk 3.6%) Past Medical History Past Medical History Notes: PCP: Dr. Loren Good Past Medical History COPD CVA Chronic low back pain Chronic diarrhea Environmental allergies Hypertension Reports: Hyperlipidemia Past Surgical History Colonoscopy Endoscopy Hand surgery Thumb amputation Family History Reports: Coronary artery disease Smoking History Former Smoker Social History Alcohol Use: Denies alcohol use Drug Use: Denies drug use Other Social History: Local resident Ambulatory Status Independent Review of Systems Constitutional: Reports: Chills, Fever, Recent wt loss (40lb in 3 years) Respiratory: Reports: Prod cough, yellow, Shortness of breath Musculoskeletal: Reports: Back pain (Chronic), Extremity pain (Left foot) Complete sys rev & neg: except as marked. GI: Reports: Nausea, Denies: Vomiting Neurologic: Reports: Headache, Lightheaded Physical Exam Initial Vital Signs Vital Signs (First) Date Time Temp Pulse Resp B/P Pulse Ox O2 Delivery O2 Flow Rate FiO2 04/19/17 21:33 37.0 90 18 143/66 99 Room Air Initial VS: Reviewed, Vital signs normal Head / Eyes: Atraumatic, Normocephalic Skin: Warm, Dry, No cyanosis Neurologic: Alert, Oriented, Nonfocal Psychiatric: Mood/affect normal, Behavior normal, Normal thought content General/Constitutional: Awake, Alert Appearance / Presentation: Positive: Frail Neck: Supple, Full range of motion Respiratory / Chest: Breath sounds = bilat, No respiratory distress Diminished Breath Sounds: Positive: Decreased bilateral Cardiovascular: Heart rate NL, Regular rhythm, Heart sounds NL Abdomen: Atraumatic Tenderness/Guarding/Rebound: Positive: Guarding voluntary, Tender diffuse Lower Extremity / Pelvis / MS: Inspection NL, Full range of motion, No swelling , Non-tender, Neurologic intact, Vascular intact, No edema Telangiectasia and varicose veins present, left leg Interpretation & Diagnostics US LEFT VENOUS LEG DUPLEX: No DVT 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 Lab Results Interpretation Result Diagram: 04/19/17 2218 04/19/17 2218 Test 04/19/17 22:18 04/19/17 23:33 White Blood Count 10.2th/mm3 (3.8-10.1) Red Blood Count 4.08mil/mm3 (4.40-5.80) Hemoglobin 13.5g/dL (13.8-17.2) Hematocrit 39.9% (41.0-50.0) Mean Corpuscular Volume 97.8fL (81-100) Mean Corpuscular Hemoglobin 33.1pg (27.0-35.0) Mean Corpuscular Hemoglobin Concent 33.8% (32.0-37.0) Red Cell Distribution Width 12.5% (12.3-15.4) Platelet Count 308bil/L (150-400) Neutrophils (%) (Auto) 66.0% (40-74) Lymphocytes (%) (Auto) 21.5% (14-46) Monocytes (%) (Auto) 10.8% (4-12) Eosinophils (%) (Auto) 1.2% (0-5) Basophils (%) (Auto) 0.3% (0-3) D-Dimer 0.85mg/L FEU (<0.50) Sodium Level 133mEq/L (134-144) Potassium Level 4.5mEq/L (3.5-5.2) Chloride Level 93mEq/L (97-108) Carbon Dioxide Level 27mmol/L (18-29) Blood Urea Nitrogen 17mg/dL (8-27) Creatinine 0.78mg/dL (0.76-1.27) Estimat Glomerular Filtration Rate 104mL/min (>59) Glucose Level 96mg/dL (60-99) Calcium Level 9.6mg/dL (8.5-10.1) Magnesium Level 1.9mg/dL (1.6-2.6) Total Bilirubin 0.7mg/dL (0.0-1.2) Aspartate Amino Transf (AST/SGOT) 28U/L (0-50) Alanine Aminotransferase (ALT/SGPT) 24U/L (0-44) Alkaline Phosphatase 85U/L (25-160) Troponin T 0.010ug/L (0.0-0.011) Pro-B-Type Natriuretic Peptide 72.78pg/mL (0-376) Total Protein 7.4g/dL (6.4-8.4) Albumin 4.0g/dL (3.4-5.0) Hold [place] Top Tube Received (Received) Urine Color Yellow (YELLOW) Urine Appearance Clear (CLEAR,HAZY) Urine pH 7.0 (5.0-8.0) Urine Specific Jewett <1.005 (1.003-1.035) Urine Protein Negativemg/dL (NEG,TRACE) Urine Glucose (UA) Negativemg/dL (NEGATIVE) Urine Ketones Negativemg/dL (NEGATIVE) Urine Occult Blood Negative (NEGATIVE) Urine Nitrite Negative (NEGATIVE) Urine Bilirubin Negative (NEGATIVE) Urine Urobilinogen Normalmg/dL (NORMAL) Urine Leukocyte Esterase Negative (NEGATIVE) Urine RBC 0-2/hpf (0-2) Urine WBC 0-5/hpf (0-5) Urine Epithelial Cells Few/hpf (NONE-MOD) Urine Crystals None seen (NONE SEEN) Urine Bacteria Few/hpf (NONE-FEW) Urine Hyaline Casts None/lpf (NONE) Urine Granular Casts None seen (NONE SEEN) Urine Waxy Casts None seen (NONE SEEN) Urine Red Blood Cell Casts None seen (NONE SEEN) Urine White Blood Cell Casts None seen (NONE SEEN) Urine Mucus None seen (None Seen) Urine Trichomonas None seen (NONE SEEN) Urine Yeast None (NONE SEEN) Urinalysis Comment None Urine Culture Reflexed Not indicated Lab values outside NL range: no clinical significance. ECG Interpretation ECG Interpretation: Sinus rhythm rate 72 Time: 22:28 Interpreted by: ED physician X-Ray Chest Interpretation Chest Xray Interpretation: Normal x-ray View: Portable, 1 view Interpretation / Wet Read by: Wet read ED physician CT Chest Interpretation CONCLUSION: No evidence of pulmonary embolism or thoracic aortic dissection. Ectasia of the ascending thoracic aorta. Lungs are grossly clear. Report transmitted to the ED by radiologist Sammy Gonzalez M.D. at 04/20/2017 - 1:28:37 AM PDT Study type: CT pulm angiogram Interpretation / Wet Read by: Interpret - Radiologist CT Abd / Pelvis Interpretation CONCLUSION: No free air, bowel obstruction, or gross intestinal inflammation. The appendix is not identified. No secondary signs of appendicitis. Report transmitted to the ED by radiologist Sammy Gonzalez M.D. at 04/20/2017 - 1:31:32 AM PDT Study type: Abdominal CT IV contrast, Abdom CT oral contrast Interpretation / Wet Read by: Interpret - Radiologist Re-Eval/Medical Decision Med Decision/Clinical Course 72-year-old patient who presents with fairly vague complaints of leg pain and some shortness of breath. Workup was done to include left lower extremity venous Doppler, chest PE study with abdomen and pelvis runoff, and multiple labs. There is no indication of a severe cause of his weight loss and other symptoms. He is being discharged home to follow up with his primary doctor. Source of Hx: Old records Re-Evaluation/Progress #1: Time of Eval: 02:44 Patient Status: Condition improved Re-Evaluation/Progress Note: Patient is feeling better. Discussed with patient lab, x-ray, CT, and US results with plan for road test. He agrees with plan for care and all questions were addressed. Re-Evaluation/Progress #2: Patient Status: Condition improved Re-Evaluation/Progress Note: Patient's road test was successful. Discussed with patient all results, diagnosis, and plan for discharge. Follow-up and return to the ER instructions given. Patient agrees with plan for care and all questions were addressed. Counseled Regarding: Diagnosis, Lab results, Need for follow-up, When/why to return to ED Discharge & Departure Impression: Primary Impression: Shortness of breath Additional Impression: Left foot pain Disposition: Home Discharge Condition All VS Reviewed: Yes Condition: Improved Additional Instructions: The cause of your symptoms is not certain at this time, but it does not appear to be serious. All of the testing that we did including the CT scan of your chest and abdomen shows no significant abnormalities. There is no explanation for your weight loss. There is no evidence of blood clots in the legs or lungs. Follow-up with your regular doctor for further evaluation and treatment as needed for persistent symptoms. Referrals: Loren Good MD (PCP) Scribe Attestation Portions of this note were transcribed by Angela Singh. I, Dr. Giles, personally performed the history, physical exam, and medical decision-making; I reviewed and confirmed the accuracy of the information in the transcribed note. Signed by: Chiki Olivier, 04/20/2017, 04:10 copies to: Loren Good MD, Howard L MD Apr 19, 2017 22:02 ANGELA SINGH Apr 19, 2017 22:09
[2017-04-19 22:38] LABS: BASOPHILS % (AUTO) 0.3 % (0-3); EOSINOPHILS % (AUTO) 1.2 % (0-5); MONOCYTES % (AUTO) 10.8 % (4-12); Mean Corpuscular Hemoglobin 33.1 pg (27.0-35.0); Mean Corpuscular Volume 97.8 fL (81-100); Platelet Count 308 bil/L (150-400)
[2017-04-19 23:00] LABS: TROPONIN T 0.01 ug/L (0.0-0.011)
[2017-04-19 23:11] LABS: Magnesium 1.9 mg/dL (1.6-2.6)
[2017-04-19] MEDS ORDERED: Iohexol 300 mg/mL 30 mL Inj PO ONE (23:30)
[2017-04-19 23:36] VITALS: BP 163/51; PULSE 75; RESP 14; O2SAT 98
[2017-04-19 23:46] LABS: APPEARANCE,URINE CLEAR (CLEAR,HAZY); COLOR,URINE YELLOW (YELLOW)
[2017-04-19 23:47] LABS: OCCULT BLOOD,URINE NEGATIVE (NEGATIVE); UROBILINOGEN,URINE NORMAL (NORMAL)
[2017-04-20 04:07] VITALS: BP 122/74; PULSE 78; RESP 16; O2SAT 97
--- NOTE | 2017-04-20 08:03 | DRSVH ---
PROCEDURE: X-RAY CHEST ONE VIEW, PORTABLE ([id number]) INDICATIONS: 72-year-old male with dyspnea. TECHNIQUE: One view of the chest was acquired. COMPARISON: [facility], CR, XR CHEST 1VW (PORTABLE), 01/09/2017, 18:08. FINDINGS: Surgical changes and devices: None. Lungs and pleura: Chronic diffuse interstitial prominence. No pleural effusions or pneumothorax. Miryam ngs are clear. Mediastinum: Mediastinal contours appear normal. Heart size is normal. Bones and chest wall: No suspicious bony lesions. Overlying soft tissues appear unremarkable. IMPRESSION: No acute cardiopulmonary disease. Dictated by: Guru Ames M.D. on 04/20/2017 at 8:01 Approved by: Guru Ames M.D. on 04/20/2017 at 8:02
--- NOTE | 2017-04-20 08:06 | DRSVH ---
PROCEDURE: US VEINOUS LEG DUPLEX UNILATERAL, LEFT INDICATIONS: left leg pain TECHNIQUE: Real-time imaging, as well as color and pulse Doppler interrogation, were performed of the lower extr emity deep veins from the inguinal ligament to the popliteal fossa. COMPARISON: None. FINDINGS: The deep veins are normally compressible, and free of intraluminal thrombus. Color and pu lse Doppler demonstrate normal phasic intraluminal flow. There is normal augmentation response to di stal compression maneuver. IMPRESSION: No DVT in the left lower extremity. Dictated by: Guru Ames M.D. on 04/20/2017 at 8:05 Approved by: Guru Ames M.D. on 04/20/2017 at 8:05
--- NOTE | 2017-04-20 08:12 | DRSVH ---
PROCEDURE: CT ANGIO CHEST PULMONARY EMBOLISM ([id number]) INDICATIONS: dyspnea, elev dimer TECHNIQUE: After the administration of intravenous contrast, 2 mm thick sections acquired from the pulmonary api morena to the posterior costophrenic angles. 3-dimensional maximum intensity projection (MIP) coronal a nd sagittal reformats were then acquired through the thorax. For radiation dose reduction, the follo wing was used: automated exposure control, adjustment of mA and/or kV according to patient size. COMPARISON: None. FINDINGS: Image quality: Excellent. Pulmonary arteries: Pulmonary arteries are normal in size, and demonstrate no intraluminal filling d efects to suggest central pulmonary embolism. Lungs and pleura: Pleuro-parenchymal scarring noted in the lung apices bilaterally. Atelectasis noted in the dependent portions of the lungs. No pleural effusions or pneumothorax. Central and periphera l airways are patent. Mediastinum: Heart size is normal, without pericardial effusion. Atherosclerotic calcifications are noted in the aorta and great vessels. No mediastinal or hilar adenopathy. Thoracic aorta is normal i n caliber and enhancement. Esophagus is normal in caliber, without hiatal hernia. Bones and chest wall: No suspicious bony lesions. Ribs and thoracic spine appear intact throughout. Thyroid gland is within normal limits. No axillary or supraclavicular adenopathy. Abdomen: Visualized upper abdominal solid organs appear normal in the early arterial phase of enhanc ement. IMPRESSION: No pulmonary embolus. Dictated by: Marylou Rojas MD, PhD on 04/20/2017 at 7:56 Approved by: Marylou Rojas MD, PhD on 04/20/2017 at 8:10
--- NOTE | 2017-04-20 08:20 | DRSVH ---
PROCEDURE: CT ABDOMEN AND PELVIS WITH CONTRAST ([id number]) INDICATIONS: dyspnea, elev dimer TECHNIQUE: After the administration of intravenous contrast, 5 mm thick sections acquired from the diaphragm to the symphysis. 5 mm coronal and sagittal reformats were acquired. For radiation dose reduction, the following was used: automated exposure control, adjustment of mA and/or kV according to patient isidoro tapia. COMPARISON: [facility], CT, CT ABD PELVIS W CON, 05/14/2016, 18:25. FINDINGS: Image quality: Excellent. ABDOMEN: Lung bases: Lung bases are clear. Heart size is normal. Solid organs: Liver and spleen are normal in size and enhancement. Gallbladder is within normal fong its. Biliary system is non dilated. Pancreas enhances normally. No adrenal nodules. Kidneys demon strate normal size and enhancement, without hydronephrosis. 2-3 mm in diameter nonobstructing stone n oted in the superior pole of the right kidney. Peritoneum and bowel: Bowel loops demonstrate normal wall thickness and caliber. Large amount of st ool seen throughout the colon. No free fluid or air. The appendix is not identified, however no free fluid or air are seen adjacent to the cecum. Nodes and vessels: No retroperitoneal or mesenteric adenopathy by size criteria. Aorta and inferior vena cava are normal in size. Scattered atherosclerotic calcifications are noted in the abdominal an d pelvic vasculature including possible significant atherosclerotic stenosis of the superior mesenter ic artery. Miscellaneous: No ventral hernias. PELVIS: Genitourinary: Bladder wall thickness is normal. Miscellaneous: No inguinal hernias or adenopathy. Bones: No suspicious bony lesions. No vertebral body compression fractures. Spine degenerative disc disease and facet arthropathy. IMPRESSION: 1. Severe fecal loading scattered throughout the colon. Please correlate with clinical data. 2. The appendix not directly visualized. No free fluid or inflammatory changes are identified adjacen t to the cecum. 3. No dilated loops of bowel. 4. No free fluid or air. Dictated by: Marylou Rojas MD, PhD on 04/20/2017 at 8:11 Approved by: Marylou Rojas MD, PhD on 04/20/2017 at 8:19
== END 2017-04-20 04:09 | disposition home or self-care (01) ==
LOC: SED 21:16
DX: R06.02 Shortness of breath (principal); M79.672 Pain in left foot; R51 Headache; R42 Dizziness and giddiness; R11.0 Nausea; R50.9 Fever, unspecified; M54.9 Dorsalgia, unspecified; R05 Cough; J44.9 Chronic obstructive pulmonary disease, unspecified; I10 Essential (primary) hypertension; E78.5 Hyperlipidemia, unspecified; Z87.891 Personal history of nicotine dependence; Z86.73 Personal history of transient ischemic attack (TIA), and cerebral infarction without residual deficits; Z79.82 Long term (current) use of aspirin
CPT/HCPCS: 36415; 71010; 71275; 74177; 80053; 81000; 83735; 83880; 84484; 85025; 85378; 93005; 93970; 99285; J7040; Q9967

== ENCOUNTER 2017-04-26 10:14 | Observation (INO) | payer MEDICARE, MEDICAID ==
[2017-04-26] VITALS (10 sets, daily range): BP systolic 100–156; BP diastolic 46–71; PULSE 63–102; RESP 14–24; O2SAT 97–100
[~2017-04-26] VITALS: Ht 167.6 cm; Wt 49.1 kg
--- NOTE | 2017-04-26 10:59 | ED.REPORT ---
HPI-Neurologic Deficit Date of Service Apr 26, 2017 ED Provider: Wilma Muniz MD Patient is a 72 y/o male w/ a hx of CVA x2 presenting to the ED c/o numbness with tingling in the right arm onset this morning upon waking. Associated symptoms include vomiting, headache, abdominal pain, blurred vision (left more affected than right), cough w/ sputum onset 1 week ago, delayed thinking, trouble breathing, and urinary retention. He reports decreased sensation in the right arm and left leg and a heavier left arm and right leg. He rates his abdominal pain 7/10 on severity. He attempted to eat this morning but couldn't keep it down. He denies fever, diarrhea, or any other symptoms at this time. Patient had a stoke in March 2017. Patient had a cataract surgery performed 2 years ago. He has been taking his daily medications. Nursing Notes Stated Complaint: CHANGE IN VISION Chief Complaint: Neuro Symptoms/ Deficits Nursing Notes Reviewed: Yes Allergies: Coded Allergies: No Known Drug Allergies (Verified Allergy, Unknown, 04/19/17) Scheduled Aspirin Chew (Aspirin Chew) 81 Mg Chew 81 MG PO DAILY Atorvastatin Calcium (Atorvastatin Calcium) 40 Mg Tablet 80 MG PO HS Cholecalciferol (Vitamin D3) (Vitamin D) 5,000 Unit Capsule 5,000 UNIT PO QAM Clopidogrel (Clopidogrel) 75 Mg Tablet 75 MG PO DAILY Fluoxetine (Prozac) 10 Mg Capsule 10 MG PO DAILY Lisinopril (Lisinopril) 10 Mg Tablet 10 MG PO BID Multivitamin (Multivitamins) 1 Each Capsule 1 EACH PO DAILY Simvastatin (Simvastatin) 20 Mg Tablet 20 MG PO HS Scheduled PRN Docusate Sodium (Colace) 100 Mg Capsule 100 MG PO BID PRN PRN For Constipation General Time Seen by Provider: 10:54 Chief Complaint Numbness arm... (Right) Hx Obtained From: Patient Arrived By: Walk-in Sudden in Onset?: Yes Onset Occurred: 1 - 4 hours ago Symptom Duration: Since onset Associated with: Reports: Vomiting, Weakness Related History: Reports: CVA/TIA Recent Healthcare: Recent doctor visit, Recent hospitalization Similar Sx Previous: Yes Risk Factors TPA Administration/Criteria Stroke Thrombolytic Therapy : TPA Considered: Yes Disc Risk/Benefit/Alternatives: Yes TPA Administered Intravenously: No, not indicated (with symptoms, stroke within the last month, NIH score of 3) NIH Stroke Scale Level of Consciousness: Alert and responsive (0) Ask Month & Age: Both questions right (0) Open/Close Eyes/Hand Armored Transport Service Manager: Performs both tasks (0) Horizontal EO Movements: None (0) Visual Garcia: Partial hemianopsia (1) (on the left side) Facial Palsy: Minor paralysis (1) (on the right side) Right Arm Motor Drift (10s): No drift 10 sec (0) (left arm heavy, right arm slight decrease in sensation) Left Arm Motor Drift (10s): No drift 10 sec (0) Right Leg Motor Drift (5s): No drift 5 sec (0) (right leg was heavy, left leg with decreased sensation ) Left Leg Motor Drift (5s): No drift 5 sec (0) Limb Ataxia FNF/Heel-Moses: No ataxia (0) Sensation (Arms/Legs/Face): Pinprick less sharp (1) Language Aphasia: No aphasia, normal (0) (feels like he has difficultly thinking, no objective findings) Dysarthria: No dysarthria, normal (0) Extinction/Inattention: No exctinct/inattent (0) NIHSS Score: 3 Time NIHSS Performed: 11:08 Date NIHSS Performed: Apr 26, 2017 Past Medical History Past Medical History Notes: PCP: Dr. Loren Good 04/07 discharge: new CVA 03/31/2017 Past Medical History COPD CVA x2 Chronic low back pain Chronic diarrhea Environmental allergies Hypertension Reports: Hyperlipidemia Past Surgical History Colonoscopy Endoscopy Hand surgery Thumb amputation Reports: Cataract surgery Family History Reports: Coronary artery disease Smoking History Former Smoker Social History Alcohol Use: Denies alcohol use Drug Use: Denies drug use Other Social History: Lives alone, Local resident Ambulatory Status Independent Review of Systems Review of Systems Note: +heavier left arm and right leg, delayed thinking Constitutional: Denies: Fever Eyes: Reports: Blurred left (more affected than the right), Blurred right Respiratory: Reports: Prod cough, clear, Shortness of breath GI: Reports: Abdominal pain, Vomiting, Denies: Diarrhea Neurologic: Reports: Headache, Numbness (right arm and leg leg w/ tingling ), Vision change Complete sys rev & neg: except as marked. Male: Reports Urination decreased Physical Exam Initial Vital Signs Vital Signs (First) Date Time Temp Pulse Resp B/P Pulse Ox O2 Delivery O2 Flow Rate FiO2 04/26/17 10:15 36.5 102 16 146/67 99 Room Air Initial VS: Reviewed Neck: Full range of motion Abdomen / GI: Soft, Non-tender Skin: Warm, Dry Psychiatric: Mood/affect normal, Behavior normal, Normal thought content General/Constitutional: Awake, Alert, Cooperative Appearance / Presentation: Positive: Frail Head / Eyes: Atraumatic, Normocephalic Respiratory / Chest: No respiratory distress Rhonchi in L lung base Diminished breath sounds throughout Cardiovascular: Heart rate NL, Regular rhythm, Heart sounds NL Neurologic: Oriented X3, Speech NL See NIH stoke scale Stoke scale score of 3 Interpretation & Diagnostics Lab Results Interpretation Result Diagram: 04/26/17 1035 04/26/17 1035 Test 04/26/17 10:35 White Blood Count 8.2th/mm3 (3.8-10.1) Red Blood Count 4.17mil/mm3 (4.40-5.80) Hemoglobin 13.6g/dL (13.8-17.2) Hematocrit 41.1% (41.0-50.0) Mean Corpuscular Volume 98.6fL (81-100) Mean Corpuscular Hemoglobin 32.6pg (27.0-35.0) Mean Corpuscular Hemoglobin Concent 33.1% (32.0-37.0) Red Cell Distribution Width 12.8% (12.3-15.4) Platelet Count 301bil/L (150-400) Neutrophils (%) (Auto) 73.0% (40-74) Lymphocytes (%) (Auto) 14.4% (14-46) Monocytes (%) (Auto) 9.6% (4-12) Eosinophils (%) (Auto) 2.3% (0-5) Basophils (%) (Auto) 0.5% (0-3) Hold Purple Top Tube Received (Received) Hold Blue Top Tube Received (Received) Sodium Level 132mEq/L (134-144) Potassium Level 4.3mEq/L (3.5-5.2) Chloride Level 93mEq/L (97-108) Carbon Dioxide Level 26mmol/L (18-29) Blood Urea Nitrogen 21mg/dL (8-27) Creatinine 0.86mg/dL (0.76-1.27) Estimat Glomerular Filtration Rate 93mL/min (>59) Glucose Level 134mg/dL (60-99) Calcium Level 9.3mg/dL (8.5-10.1) Total Bilirubin 0.6mg/dL (0.0-1.2) Aspartate Amino Transf (AST/SGOT) 23U/L (0-50) Alanine Aminotransferase (ALT/SGPT) 19U/L (0-44) Alkaline Phosphatase 77U/L (25-160) Total Protein 7.4g/dL (6.4-8.4) Albumin 4.2g/dL (3.4-5.0) Hold [place] Top Tube Received (Received) Hold Iverson Top Tube Received (Received) ECG Interpretation ECG Interpretation: Sinus rhythm w/ a rate of 80 Anterior infarct, old similar to 04/19/17 no ischemia Time: 11:51 Interpreted by: ED physician CT Head Interpretation IMPRESSION: No acute intracranial abnormality. Dictated by: Guru Ames M.D. on 04/26/2017 at 11:54 Approved by: Guru Ames M.D. on 04/26/2017 at 11:58 Study: Head CT no contrast Interpretation / Wet Read by: Interpret - Radiologist Re-Eval/Medical Decision Re-Evaluation/Progress #1: Time of Eval: 11:53 )( Re-Eval Neurologic Exam: Alert Re-Evaluation/Progress Note: Rechecked pt. He did not pass his swallow eval. Re-Evaluation/Progress #2: Time of Eval: 12:32 )( Re-Eval Neurologic Exam: Alert Re-Evaluation/Progress Note: Rechecked pt. Discussed plan for admission. Patient understands and agrees with plan. All questions addressed at this time. Consultation #1: Referral / Consult Name: Negrito Borrego Consulted With: Hospitalist Call Returned at: 13:27 Copyholder: Will see patient, Agrees with eval, Agrees with plan, Accepts admit Note: Discussed patient's case. Agrees with evaluation and accepts admission. Consultation #2: Referral / Consult Name: Tanner Abad MD Consulted With: Neurology Call Returned at: 13:30 Copyholder: Agrees with eval, Agrees with plan Note: Discussed patient's case. Agrees to consult. Counseled Regarding: Diagnosis, Lab results, Need for admission Discharge & Departure Impression: Primary Impression: Stroke CVA mechanism: unspecified Qualified Code: I63.9 - Cerebral infarction, unspecified Disposition: ADMITTED TO HOSPITAL Discharge Condition All VS Reviewed: Yes Condition: Stable Referrals: Loren Good MD (PCP) Scribe Attestation Portions of this note were transcribed by Leigha Cadet & Forrest Mai. I, Dr. Muniz personally performed the history, physical exam and medical decision-making; I reviewed and confirmed the accuracy of the information in the transcribed note. Signed by: Leigha Mai., Chiki, 04/17/2017 and 1413 copies to: Loren Good MD, Shawna L MD Apr 26, 2017 10:58 Leigha Cadet Apr 26, 2017 11:10 FORREST MAI Apr 26, 2017 11:49
[2017-04-26 11:17] LABS: BASOPHILS % (AUTO) 0.5 % (0-3); EOSINOPHILS % (AUTO) 2.3 % (0-5); MONOCYTES % (AUTO) 9.6 % (4-12); Mean Corpuscular Hemoglobin 32.6 pg (27.0-35.0); Mean Corpuscular Volume 98.6 fL (81-100); Platelet Count 301 bil/L (150-400)
--- NOTE | 2017-04-26 11:59 | DRSVH ---
PROCEDURE: CT BRAIN WITHOUT CONTRAST ([id number]) INDICATIONS: 72-year-old man with headache and history of stroke. TECHNIQUE: Noncontrast 4.5 mm thick angled axial sections acquired from the foramen magnum to the vertex, with c oronal reformats. COMPARISON: [facility], MR, MR STROKE PROTOCOL, 03/29/2017, 7:53. [facility] , CT, CT BRAIN WO CON, 04/13/2017, 10:02. FINDINGS: Image quality: Excellent. CSF spaces: Basal cisterns are patent. No extra-axial fluid collections. The ventricles are symmet ryan in size and shape. Brain: No intracranial bleeds or masses. There is mild cerebral volume loss for age, with resultant ventricular and sulcal prominence. There are periventricular and deep white matter chronic small ve ssel ischemic changes. There is intracranial internal carotid artery atherosclerosis. Skull and face: Calvarium and visualized facial bones appear intact, without suspicious lesions. Sinuses: Visualized sinuses and mastoids are clear. IMPRESSION: No acute intracranial abnormality. Dictated by: Guru Ames M.D. on 04/26/2017 at 11:54 Approved by: Guru Ames M.D. on 04/26/2017 at 11:58
[2017-04-26] MEDS ORDERED: Ondansetron 2 mg/mL 2 mL Inj IVPUSH ONE (13:20)
[2017-04-26] MEDS ORDERED: ACET-171 PO (14:31)
[2017-04-26] MEDS ORDERED: ALBU8.5H2 INHALATION (14:32)
[2017-04-26] MEDS ORDERED: Promethazine Inj 25 MG in 0.9% Sodium Chloride-Pha MIX 100 ML IV ONE (15:25)
--- NOTE | 2017-04-26 15:46 | NUR ---
Evaluation completed. Please go to "Notes" then click on "Assessments and Notes" (bottom left corner of screen). Then select appropriate discipline tab on top of screen.
[2017-04-26] MEDS ORDERED: Ondansetron 2 mg/mL 2 mL Inj IVPUSH PRN (15:55)
[2017-04-26] MEDS ORDERED: Alum-Mag Hydrox-Simeth 30 mL Suspension PO PRN ×2 (15:55→18:35)
--- NOTE | 2017-04-26 16:39 | NUR ---
admit pt transported to [facility] via gurney from the ED. pt denies pain but states that he still feels nauseated-promethazine ordered and this RN will hang. FABR[employer] CUTTER in room getting vitals.
--- NOTE | 2017-04-26 18:06 | PCM.HPMED ---
Subjective Date of Service Apr 26, 2017 Primary Provider: Admitting Physician: Negrito Borrego Primary Care Physician: Loren Good MD Attending Physician: Negrito Borrego Chief Complaint: headache, worsening blurred vision and right arm "tingling" History of Present Illness: 72-year-old male with history of recent acute right occipital infarct less than one months ago at which time the MRI was also notable for "old, small, left occipital infarcts" had symptoms of visual changes by seeing spots as well as left sided paraesthesia. He is a very poor historian but seems to have presented to hospital today due to new onset of tingling in the right arm and possible worsening of visual symptoms (including blurry vision and seeing more spots). Associated symptoms include vomiting, headache, abdominal pain, blurred vision (left more affected than right), cough w/ sputum onset 1 week ago , worsening memory, trouble breathing, and urinary retention. He attempted to eat this morning but couldn't keep it down. He denies fever, diarrhea, or any other symptoms at this time. He has had about 40lb weight loss over the past 2 years. He says he has been compliant with his medications including taking Aspirin and Plavix since his discharge from hospital last month. Review of Systems: Constitutional: Negative, except as otherwise mentioned in the history above. Ophthalmologic: Negative, except as otherwise mentioned in the history above. Cardiovascular: Negative, except as otherwise mentioned in the history above. Respiratory: Negative, except as otherwise mentioned in the history above. Gastrointestinal: Negative, except as otherwise mentioned in the history above. Genitourinary: Negative, except as otherwise mentioned in the history above. Musculoskeletal: Negative, except as otherwise mentioned in the history above. Neurological: Negative, except as otherwise mentioned in the history above. Psychiatric: Negative, except as otherwise mentioned in the history above. Hematologic/Lymphatic: Negative, except as otherwise mentioned in the history above. Allergic/Immunologic: Negative, except as otherwise mentioned in the history above. Allergies Coded Allergies: No Known Drug Allergies (Verified Allergy, Unknown, 04/26/17) Home Medications Scheduled Aspirin Chew (Aspirin Chew) 81 Mg Chew 81 MG PO DAILY Atorvastatin Calcium (Atorvastatin Calcium) 40 Mg Tablet 80 MG PO HS Cholecalciferol (Vitamin D3) (Vitamin D) 5,000 Unit Capsule 5,000 UNIT PO QAM Clopidogrel (Clopidogrel) 75 Mg Tablet 75 MG PO DAILY Fluoxetine (Prozac) 10 Mg Capsule 10 MG PO DAILY Lisinopril (Lisinopril) 10 Mg Tablet 10 MG PO BID Multivitamin (Multivitamins) 1 Each Capsule 1 EACH PO DAILY Simvastatin (Simvastatin) 20 Mg Tablet 20 MG PO HS Scheduled PRN Docusate Sodium (Colace) 100 Mg Capsule 100 MG PO BID PRN PRN For Constipation PMH COPD CVA x2 Chronic low back pain Chronic diarrhea Environmental allergies Hypertension Reports: Hyperlipidemia Surgical History Colonoscopy Endoscopy Hand surgery Thumb amputation Reports: Cataract surgery Family History Mother age 86 [place] in her 60's and then again at 80 Maternal Aunt with Seizures Another Maternal aunt age 52 2/2 CVA Maternal grandfather age 60 2/2 [place] Social History Hx Alcohol Use: No (STOPPED 1989; DRANK ALOT SOCIALLY) Hx Substance Use: No (BACK IN THE 1959'S AND 1969'S; QUIT 1984) Smoking Status: Former Smoker Living Arrangement: Alone Exam Vital Signs Vital Sign - Last Date Time Temp Pulse Resp B/P Pulse Ox O2 Delivery O2 Flow Rate FiO2 04/26/17 17:03 84 04/26/17 17:01 37.0 18 156/71 99 Room Air 04/26/17 16:09 2 General: Alert, Oriented X3, Cooperative, No Acute Distress Head: Normal Eyes: PERRLA, EOMI, Scleral Anicteric Nose: Mucous Membr Moist/Central Garage Mouth: Mucous Membr Moist/[place] Neck: Supple Chest & Lungs: Chest Wall Normal, Clear to auscultation & percussion Cardiovascular: Regular Rate/Rhythm Pulses: NL carotid, radial, femoral, DP, PT Abdomen: Tender (mildly tender mostly in upper abdomen), Non-distended, Normoactive bowel tones, Soft Extremities: No cyanosis/clubbing/edma bilat Neurological: Grossly Neurologically Intact, Cranial Nerves 2-12 Intact ( grossly intact), Normal Speech, Strength Normal 4/4 ext, Sensation Intact Lymphatic: Other Lymph Nodes (no significant lymphadenopathy) Additional Information: Psych: appropriate affect. calm Lab and Diagnostics Result Diagram: 04/26/17 1035 04/26/17 1035 X-Rays, CTs and MRIs Date of Service: 04/26/17 1110 PROCEDURE: CT BRAIN WITHOUT CONTRAST ([id number]) IMPRESSION: No acute intracranial abnormality. Dictated by: Guru Ames M.D. on 04/26/2017 at 11:54 Approved by: Guru Ames M.D. on 04/26/2017 at 11:58 Assessment & Plan 72-year-old male with history of recent acute right occipital infarct less than one months ago at which time the MRI was also notable for "old, small, left occipital infarcts" had symptoms of visual changes by seeing spots as well as left sided paraesthesia. He is a very poor historian but seems to have presented to hospital today due to new onset of tingling in the right arm and possible worsening of visual symptoms (including blurry vision and seeing more spots). # Acute and recurrent neurologic symptoms concerning for recurrent CVA vs TIA vs exacerbation recent stroke symptoms - Tele - Continue with ASA and Plavix - Continue with Statins - Permissive hypertension - Per ED neurology consulted. Will followup with further recommendations - Will tentatively order repeat brain MRI - Will hold off on ordering ECHO - PT/OT/ST # History of COPD. Stable - Nebs/inhalers prn # Hypertension - Hold BP meds for now - Permissive HTN as noted above - IV Labetalol prn # History of depression. Stable - Continue with home dose Fluoxetine # Abdominal pain - According to patient this is a chronic issue - Continue with supportive care for now - If persist consider further imaging Expected length of hospital stay at this time is less than 2 midnights GI Prophylaxis: Not indicated VTE Prophylaxis: Sub-Q Heparin (Unfractionated) Resuscitation Status: CPR: Attempt Resuscitation (discussed and verified with patient) Time spent 60 min Negrito Borrego Apr 26, 2017 18:05
[2017-04-26] MEDS ORDERED: Polyethylene Glycol (PEG) 17 Gm Powder PO PRN (18:35)
[2017-04-26] MEDS ORDERED: Labetalol 5 mg/mL 4 mL Inj IVPUSH PRN (18:35)
[2017-04-26] MEDS ORDERED: Albuterol 2.5 mg/3 mL Inhalation Solution NEB PRN (18:50)
[2017-04-26 20:14] LABS: APPEARANCE,URINE CLEAR (CLEAR,HAZY); COLOR,URINE YELLOW (YELLOW); OCCULT BLOOD,URINE NEGATIVE (NEGATIVE); UROBILINOGEN,URINE NORMAL (NORMAL)
[2017-04-26] MEDS: Ondansetron 2 mg/mL 2 mL Inj IVPUSH PRN (20:41)
--- NOTE | 2017-04-26 21:17 | DRSVH ---
PROCEDURE: MRI STROKE PROTOCOL ([id number]) Pre- and post-contrast brain MRI, non-contrast brain MR angiogram, pre- and postcontrast neck MR rahat ogram INDICATIONS: Blurred vision,history of stroke TECHNIQUE: Brain: Noncontrast axial T1 spin echo, axial T2 fast spin echo, sagittal and axial FLAIR, coronal T2 fast spin echo, axial gradient echo, axial diffusion and ADC through the brain. After the administr ation of contrast, axial 3D VIBE of the cranial vasculature and brain. Brain MRA: Non-contrast 3-D time of flight MR angiogram, with multiple jnkncdl-ldiuacnzi-owrpydifce (MIP) reformats performed. Neck MRA: Axial and sagittal TruFISP through the neck. Coronal dynamic MR angiogram during administ ration of contrast in the arterial and venous phases, with 3-dimenstional vwawkhk-arxhlwuxu-dzyutyupy n (MIP) reformats constructed from subtraction images. COMPARISON: [facility], MR, MR STROKE PROTOCOL, 03/29/2017, 7:53. [facility] , MR, MR BRAIN WO CON, 03/31/2017, 13:50. FINDINGS: Image quality: Excellent. BRAIN: CSF spaces: Ventricles are normal in size and shape. Basal cisterns are patent. No extra-axial flu id collections. Brain: No intracranial bleeds or mass effects. Santana-white matter interface is normal. Mild deep whi te matter and periventricular white matter changes are noted. Diffusion weighted images show no acute ischemic insults. Brainstem appears normal. Normal intravascular flow voids are present. No abnor mal intracranial enhancement. Skull and face: Calvarial marrow signal is normal. Orbits appear normal. Sinuses: Sinuses and mastoids are clear. BRAIN MR ANGIOGRAM: Anterior circulation: The intracranial right internal carotid arteries demonstrates normal size and e nhancement. 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 There is reconstitution of the middle and anterior cerebral arteries via collaterals. The f low within the paired anterior cerebral arteries is normal and symmetric. The flow within the middle cerebral arteries is normal and symmetric. The anterior communicating artery is seen. There is a qu estionable saccular 2 mm diameter aneurysm in the region of the anterior communicating artery (series 6, image 43). Posterior circulation: The visualized portions of the vertebral arteries demonstrate normal caliber, and join to form a normal appearing basilar artery. The left posterior cerebral artery demonstrates normal course and caliber. The right posterior cerebral artery is markedly diminutive. The distal bra nches of the right posterior cerebral artery appear occluded, as before. NECK MR ANGIOGRAM: Carotids: Great vessels demonstrate a conventional anatomy as they arise from the aortic arch. The origins of the common carotid arteries appear patent. The calibers and courses of both common caroti d arteries are normal. The left internal carotid artery is occluded at the origin. The right internal carotid artery demonstrates normal course and caliber. The internal carotid arteries demonstrate nor mal course and caliber. Posterior circulation: The origins of the vertebral arteries appear patent. There is a moderate to h igh-grade stenosis at the origin of the left vertebral artery. More superior portions of both verteb ral arteries demonstrate normal course and caliber, and join to form a normal appearing basilar arter y. Miscellaneous: Subclavian arteries appear patent. Pre-contrast images through the neck show no soft tissue abnormalities. IMPRESSION: BRAIN MRI: 1. No acute intracranial findings. Specifically, no acute infarct. 2. Mild findings likely associated with chronic microvascular ischemic changes. BRAIN MR ANGIOGRAM: 1. 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 2. Diminutive right posterior cerebral artery with distal occlusion. 3. Questionable saccular aneurysm at the anterior communicating artery. CTA of this region is recomme nded if further characterization is warranted. NECK MR ANGIOGRAM: 1. Occluded left internal carotid artery at the origin. 2. Moderate to high-grade stenosis of the origin of the left vertebral artery. The estimate of stenosis included in the report of the imaging study was calculated using the NASCET method Dictated by: Emily Piper M.D. on 04/26/2017 at 20:52 Approved by: Emily Piper M.D. on 04/26/2017 at 21:15
[2017-04-27] VITALS (10 sets, daily range): BP systolic 102–144; BP diastolic 55–70; PULSE 63–92; RESP 16–18; O2SAT 98–99
[2017-04-27] MEDS: Heparin 5,000 Unit/mL Inj SUBQ SCH ×3 (00:52→16:31)
[2017-04-27 05:36] LABS: Mean Corpuscular Hemoglobin 32.7 pg (27.0-35.0); Mean Corpuscular Volume 99.8 fL (81-100)
[2017-04-27 05:56] LABS: Magnesium 2.3 mg/dL (1.6-2.6)
[2017-04-27 06:11] LABS: INR 1.04 ratio
--- NOTE | 2017-04-27 06:27 | NUR ---
NOC PT A/O. BALDWIN. Denies any parasthesia to either side of his body. Voids per urinal. Neuro intact aside from generalized weakness noted. Will CTM. PT likely to d/c today.
--- NOTE | 2017-04-27 08:28 | PCM.CHPMED ---
Subjective Date of Service: Apr 27, 2017 Provider requesting consult: Negrito Borrego Primary Physician: Admitting Physician: Negrito Borrego Primary Care Physician: Loren Good MD Attending Physician: Negrito Borrego Chief Complaint: Chief Complaint: Right arm numbness, left leg weakness, blurred vision History of Present Illness: Neurology Consult Note (Note meant for 04/26/17) Patient is a 72 year old male with a prior history of CVA x2, HTN, and hyperlipidemia who presents to the ED with complaints of right arm numbness and tingling, headache, blurred vision in the right eye, and left leg weakness. He was admitted for stroke in March 31, 2017, and has had residual symptoms over the last month since then. He reports daily headaches described as pressure around the top of his head since his stroke 1 month ago. He reports bilateral blurry vision due to cataracts. He was on aspirin and Plavix at the time of his symptoms today. Today, he reports new onset right arm numbness and tingling this morning, worsening headache, worsening of his blurred vision (R>L), left leg weakness and numbness. He reports intermittent dark spots appearing and disappearing around his vision. He also reports chest pressure like something sitting on my chest, shortness of breath, coughing and wheezing, and nausea and vomiting associated with 7/10 lower bilateral abdominal pain. He reports chills and night sweats ongoing over several months. Review of Systems: Comprehensive review of systems conducted and was negative except for the pertinent positives listed above. PMH Past Medical History Multiple CVAs, last CVA 03/31/17 Hypertension Hyperlipidemia COPD Chronic low back pain Chronic diarrhea Environmental allergies Surgical History Colonoscopy Endoscopy Hand surgery Thumb amputation Cataract surgery Allergies: Coded Allergies: No Known Drug Allergies (Verified Allergy, Unknown, 04/26/17) Family History Family History Coronary artery disease Social History Hx Alcohol Use: Yes (quit drinking in the 80's)Hx Substance Use: Yes (quit all drugs in the 80's) Smoking Status: Former Smoker (20 years x 3 PPD) Living Arrangement: Alone Exam Vital Signs Vital Sign - Last Date Time Temp Pulse Resp B/P Pulse Ox O2 Delivery O2 Flow Rate FiO2 04/27/17 05:18 36.4 63 18 108/55 99 Room Air 04/26/17 16:09 2 Intake and Output 04/26/17 04/26/17 04/27/17 Cumulative From/Thru 15:00 23:00 07:00 04/26/17 10:15 - 04/27/17 06:49 Intake Total 0 ml 0 ml Output Total 700 ml 700 ml Balance -700 ml -700 ml Intake Oral 0 ml 0 ml Output Urine Total 700 ml 700 ml Additional Information: General: Alert, Oriented X3, Cooperative, No acute distress Head: Normocephalic, atraumatic. External ears normal. Eyes: PERRLA, EOMI. Anicteric sclerae. Mouth: Mouth normal, Mucous membranes moist/pink Neck: Neck supple with full range of motion. Chest& Lungs: Clear to auscultation bilaterally with no crackles, wheezes, or rhonchi. Cardiovascular: Regular rate/rhythm with occasional skipped beats, Normal S1, Normal S2, No murmurs/rubs/gallops Abdomen: Significant tenderness to palpation RLQ and LLQ. Non-distended, No masses, Normoactive bowel tones, Soft Extremities: No cyanosis/clubbing/edema bilaterally Neuro: Normal speech. Strength 4/4 right upper extremity, 3/4 left upper extremity, 3/4 right lower extremity, 2/4 left lower extremity. Possible right sided facial droop. Sensation Intact, Finger-Nose and Heel-Moses slow but deliberate. Delayed saccades with left lateral hemianopsia. Lab and Diagnostics Result Diagram: 04/27/1752404/27/17524 Additional Diagnostics: Date of Service: 04/26/17 1110 PROCEDURE: CT BRAIN WITHOUT CONTRAST IMPRESSION: No acute intracranial abnormality. Date of Service: 04/13/17 0854 PROCEDURE: CT BRAIN WITHOUT CONTRAST INDICATIONS: headache 1. No acute intracranial abnormality. Date of Service: 03/31/17 1152 PROCEDURE: MRI BRAIN WITHOUT CONTRAST 1. New, small, but punctate acute right occipital infarct. 2. Punctate foci of restricted diffusion in the right occipital lobe stable compared to prior height compatible with subacute infarcts. 3. Old, small, left occipital infarcts. 4. Mild, diffuse volume loss. 5. Mild periventricular and subcortical white matter, microvascular ischemic changes. 6. No intracranial hemorrhage. Date of Service: 03/29/17 0649 PROCEDURE: MRI STROKE PROTOCOL BRAIN MRI: Multiple, punctate areas of acute ischemia involving the right occipital lobe. BRAIN MR ANGIOGRAM: Occlusion of the right P2 segment. NECK MR ANGIOGRAM: Occlusion of the left internal carotid artery extending from the proximal segment just after the bifurcation, to the intracranial segment. Reconstitution of the left middle cerebral artery through anterior and posterior communicating arteries as detailed above. Narrowing and occlusion of the left P2 segment of the posterior cerebral artery. High-grade focal stenosis of the origin of the left vertebral artery. Diffuse atherosclerotic narrowing of the vertebral arteries bilaterally. Assessment & Plan Assessment Acute Stroke Patient presents with vision changes, right arm numbness, left leg weakness, and increased headache 1 month after his prior stroke. This occurred while on Aspirin, Plavix, and atorvastatin 80 mg. There is significant concern for a cardioembolic stroke given the multifocal presentation and failure of dual antiplatelet therapy and max statin therapy. His prior strokes were occipital strokes with affected posterior circulation, which is more suspicious for cardioembolic strokes. He had a fairly unremarkable Holter monitor on 03/12/16 and normal echo on 03/30/17. Therefore, we recommend Cardiology consult. He complains of fever, night sweats, and weight loss over the last several months, so he may be hypercoagulable from an unknown malignancy. CT chest on 10/24/16 showed a stable 5 mm left lower lobe lung nodule since 05/13/16. Consider hypercoagulable workup given these factors. - Echocardiogram - CT/MRI angiogram head/neck - Recommend hypercoagulable workup - Continue aspirin, Plavix, atorvastatin - Recommend Cardiology consult Problems: GI Prophylaxis: Not indicated VTE Prophylaxis: Sub-Q Heparin (Unfractionated) Resuscitation Status: CPR: Attempt Resuscitation (discussed and verified with patient) Jona Mcdonnell Apr 27, 2017 08:28
--- NOTE | 2017-04-27 11:22 | NUR ---
Case Management: MARKELL given and explained to pt. Fadia GROSS RN
--- NOTE | 2017-04-27 12:00 | NUR ---
Evaluation completed. Please go to "Notes" then click on "Assessments and Notes" (bottom left corner of screen). Then select appropriate discipline tab on top of screen.
--- NOTE | 2017-04-27 12:28 | NUR ---
Social Work-initial assessment/readiness for discharge: Data:See initial assessment. Pt is a 72 y/o male who was admitted on 04/26/17 for stroke per H&P. Pt's insurance is [facility] and [facility] and PCP is Loren Good MD. EMR reviewed. SW met with pt at bedside to discuss discharge planning, SW role explained. Pt is alert and oriented x3. Pt is a readmission discharging home with Ayah URE[facility]A. Pt resides at the [facility] where he remains independent with ADLS. Pt has resided there for 14 years. Pt does use a cane to ambulate and does drive. Pt either walks or uses the bus. Pt has no HH or SNF history. Pt confirms that he never followed up with Ayah UREÑA and he did not have these services in place at home. Pt has no jail care insurance or VA benefits. SW discussed DPOA/ advanced directive, pt confirms that he has not completed this, SW provided pt with a copy of the paperwork. PT/ST/OT have cleared pt for home no needs. Pt confirms that his sister Igor will provide transport home at discharge, pt declined having SW call her. SW provided phone number and plan on white board in room. No discharge needs identified. SW will continue to follow if needs arise. Assessment:Pt who is independent at baseline. Plan:Pt to discharge back to [facility] when medically stable. No anticipated discharge needs. PT/ST/OT have cleared pt for home no needs. SW will continue to follow. NAYELY Hoff Addendum: 04/27/17 at 1230 by NICOLE ORO Amended: Links added.
--- NOTE | 2017-04-27 13:45 | PCM.PNMED ---
Subjective Date of Service Apr 27, 2017 Subjective Denies any new issues/symptoms. Reports continued right arm "tingling" and continued visual blurriness, unchanged since admission. Exam Vital Signs Vital Sign - Last Date Time Temp Pulse Resp B/P Pulse Ox O2 Delivery O2 Flow Rate FiO2 04/27/17 11:09 84 16 98 Room Air 04/27/17 09:50 36.7 104/62 04/26/17 16:09 2 Intake and Output 04/26/17 04/26/17 04/27/17 Cumulative From/Thru 15:00 23:00 07:00 04/26/17 10:15 - 04/27/17 06:49 Intake Total 0 ml 0 ml Output Total 700 ml 700 ml Balance -700 ml -700 ml Intake Oral 0 ml 0 ml Output Urine Total 700 ml 700 ml Exam General: Alert, Oriented X3, Cooperative, No Acute Distress Head: Normal Eyes: PERRLA, EOMI, Scleral Anicteric Nose: Mucous Membr Moist/Boody Mouth: Mucous Membr Moist/Boody Neck: Supple Chest & Lungs: Chest Wall Normal, Clear to auscultation bilat Cardiovascular: Regular Rate/Rhythm Pulses: NL carotid, radial, femoral, DP, PT Abdomen: Tender (mildly tender mostly in upper abdomen), Non-distended, Normoactive bowel tones, Soft Extremities: No cyanosis/clubbing/edema bilat Neurological: Grossly Neurologically Intact, Cranial Nerves 2-12 Intact ( grossly intact), Normal Speech, Strength Normal 4/4 ext, Sensation Intact Lymphatic: Other Lymph Nodes (no significant lymphadenopathy) Additional Information: Psych: appropriate affect. calm IVs and Medications Medications Reviewed: Medications were reviewed in detail Lab and Diagnostics Result Diagram: 04/27/17 0525 04/27/17 0525 X-Rays, CTs and MRIs Date of Service: 04/26/17 1110 PROCEDURE: CT BRAIN WITHOUT CONTRAST ([id number]) IMPRESSION: No acute intracranial abnormality. Dictated by: Guru Ames M.D. on 04/26/2017 at 11:54 Approved by: Guru Ames M.D. on 04/26/2017 at 11:58 Assessment & Plan 72-year-old male with history of recent acute right occipital infarct less than one months ago at which time the MRI was also notable for "old, small, left occipital infarcts" had symptoms of visual changes by seeing spots as well as left sided paraesthesia. He is a very poor historian but seems to have presented to hospital today due to new onset of tingling in the right arm and possible worsening of visual symptoms (including blurry vision and seeing more spots). # Acute and recurrent neurologic symptoms concerning for recurrent CVA vs TIA vs exacerbation recent stroke symptoms - Tele - Continue with ASA and Plavix - Continue with Statins - CT and MRI without any acute findings - Appreciate neurology consult. Will followup with recs - Cardiology consult per neurology team - ? need for repeat echo given echo just one month ago - Hypercoagulable workup - PT/OT/ST # History of COPD. Stable - Nebs/inhalers prn # Hypertension. - Currently normotensive to hypotensive off of home BP meds - Hold BP meds for now - IV Labetalol prn # History of depression. Stable - Continue with home dose Fluoxetine # Abdominal pain - According to patient this is a chronic issue - Continue with supportive care for now - If persist consider further imaging Dispo: pending neurology consult clearance GI Prophylaxis: Not indicated VTE Prophylaxis: Sub-Q Heparin (Unfractionated) Resuscitation Status: CPR: Attempt Resuscitation (discussed and verified with patient) Negrito Borrego Apr 27, 2017 13:45
[2017-04-27] MEDS: Ondansetron 2 mg/mL 2 mL Inj IVPUSH PRN (19:30)
--- NOTE | 2017-04-27 21:07 | PCM.PNMED ---
Subjective Date of Service Apr 27, 2017 Subjective Neurology Consult Note Patient is a 72 year old male with a prior history of CVA x2 (most recent ), HTN, and hyperlipidemia who presents to the ED with complaints of right arm numbness and tingling, headache, blurred vision in the right eye, and left leg weakness. Admitted for TIA vs recurrent stroke. There were no acute events overnight. This morning, he reports continuing but unchanged right arm numbness, left leg weakness, and blurry vision in his right eye. He denies worsening of any of his presenting symptoms. He states he is still unsteady on his feet and requires assistance while ambulating. He reports continuing abdominal pain but states his nausea and vomiting are improved. He also states his headache is somewhat improved. He denies new vision changes, weakness, numbness, dizziness, syncope, fevers, chills, or diarrhea. Exam Vital Signs Vital Sign - Last Date Time Temp Pulse Resp B/P Pulse Ox O2 Delivery O2 Flow Rate FiO2 04/27/17 20:51 36.6 83 18 144/70 99 Room Air 04/26/17 16:09 2 Intake and Output 04/26/17 04/26/17 04/27/17 Cumulative From/Thru 15:00 23:00 07:00 04/26/17 10:15 - 04/27/17 06:49 Intake Total 0 ml 0 ml Output Total 700 ml 700 ml Balance -700 ml -700 ml Intake Oral 0 ml 0 ml Output Urine Total 700 ml 700 ml Exam General: Alert, Oriented X3, Cooperative, No acute distress Head: Normocephalic, atraumatic. External ears normal. Eyes: PERRLA, EOMI. Anicteric sclerae. Mouth: Mouth normal, Mucous membranes moist/pink Neck: Neck supple with full range of motion. Chest& Lungs: Clear to auscultation bilaterally with no crackles, wheezes, or rhonchi. Cardiovascular: Regular rate/rhythm, Normal S1, Normal S2, No murmurs/rubs/ gallops Abdomen: Significant tenderness to palpation RLQ and LLQ. Non-distended, No masses, Normoactive bowel tones, Soft Extremities: No cyanosis/clubbing/edema bilaterally Neuro: Normal speech. Strength 4/4 right upper extremity, 3/4 left upper extremity, 3/4 right lower extremity, 2/4 left lower extremity. Possible right sided facial droop. Sensation Intact, Finger-Nose and Heel-Moses slow but deliberate. Delayed saccades with left lateral hemianopsia. Lab and Diagnostics Result Diagram: 04/27/1752404/27/17524 X-Rays, CTs and MRIs Date of Service: 04/26/17 1110 PROCEDURE: CT BRAIN WITHOUT CONTRAST ([id number]) IMPRESSION: No acute intracranial abnormality. Dictated by: Guru Ames M.D. on 04/26/2017 at 11:54 Approved by: Guru Ames M.D. on 04/26/2017 at 11:58 Assessment & Plan Acute ischemic stroke Patient presents with vision changes, right arm numbness, left leg weakness, and increased headache 1 month after his prior stroke. This occurred while on Aspirin, Plavix, and atorvastatin 80 mg. There is significant concern for a cardioembolic stroke given the multifocal presentation and failure of dual antiplatelet therapy and max statin therapy. His prior strokes were occipital strokes with affected posterior circulation, which is more suspicious for cardioembolic strokes. He had a fairly unremarkable Holter monitor on 03/12/16 and normal echo on 03/30/17. He may require longer term cardiac monitoring. We recommend Cardiology consult. He complains of fever, night sweats, and weight loss over the last several months, so he may be hypercoagulable from an unknown malignancy. CT chest on 10/24/16 showed a stable 5 mm left lower lobe lung nodule since 05/13/16. Consider hypercoagulable workup given these factors. MRI angiography of head/neck was negative for acute stroke. However, given his persistent new symptoms and history of recent stroke, this should be treated as a recurrent stroke. - Continue stroke protocol - Recommend echocardiogram - Ordered hypercoagulability panel - Continue aspirin, Plavix, atorvastatin - Cardiology consulted - Monitor on telemetry GI Prophylaxis: Not indicated VTE Prophylaxis: Sub-Q Heparin (Unfractionated) Resuscitation Status: CPR: Attempt Resuscitation (discussed and verified with patient) Jona Mcdonnell Apr 27, 2017 21:07
[2017-04-28 00:33] VITALS: BP 124/64; PULSE 71; RESP 18; O2SAT 99
[2017-04-28] MEDS: Heparin 5,000 Unit/mL Inj SUBQ SCH ×2 (01:09→08:36)
--- NOTE | 2017-04-28 02:17 | NUR ---
Rosas Catheter placed 04/28 @ 01:00 PVR x2 > 350cc, attempted to straight cath but unable to pass prostate. Received order to place Rosas, doing so with 14 fr. Tiemann model Coude tip Rosas Catheter.
[2017-04-28 05:52] VITALS: BP 128/67; PULSE 71; RESP 18; O2SAT 98
[2017-04-28 08:11] VITALS: PULSE 81; RESP 20; O2SAT 98
[2017-04-28] MEDS: Ondansetron 2 mg/mL 2 mL Inj IVPUSH PRN (08:32)
--- NOTE | 2017-04-28 09:56 | NUR ---
Evaluation completed. Please go to "Notes" then click on "Assessments and Notes" (bottom left corner of screen). Then select appropriate discipline tab on top of screen.
--- NOTE | 2017-04-28 09:59 | CONS ---
[address] [address] CONSULTATION REPORT PATIENT: BILL NGUYEN : 1945 MR#: [id number] ADMIT: 04/26/2017 JOB ID: [id number] DATE OF SERVICE: 04/28/2017 CARDIOLOGY CONSULTATION: CHIEF COMPLAINT: I was asked by the hospital team and Neurology to consult on this patient given stroke which is felt to be possibly embolic in nature. HISTORY OF PRESENT ILLNESS: The patient is a 72-year-old man who has a history of acute right occipital infarct which occurred less than one month ago. At that time, a MRI was obtained and this showed old small left occipital infarcts. He had symptoms of visual changes described as seeing spots as well as feelings of left-sided numbness. He came back to the hospital because he had right arm tingling and possible worsening with visual symptoms. He also had some headache, abdominal pain, blurred vision, productive cough. He felt nauseated and could not eat. He was seen by the neurology service who felt that his strokes were probably occipital in nature and apparently there were no acute changes with this admission. I was asked to comment on this. The patient has been on aspirin and Plavix as well as Lipitor. PAST MEDICAL HISTORY/PROBLEM LIST: 1. Hyperlipidemia. 2. History of recent occipital stroke. 3. Evidence of old strokes on MRI. MEDICATIONS AT HOME: Include: 1. Aspirin 81 mg a day. 2. Lipitor 80 mg q.h.s. 3. Clopidogrel 75 daily. 4. Lisinopril 10 mg daily. 5. He is not on simvastatin. ALLERGIES: No known drug allergies. SOCIAL HISTORY: No tobacco. No significant alcohol. FAMILY HISTORY: Says his mother had large MIs when she was older. REVIEW OF SYSTEMS: Overall health: No fevers, chills, night sweats, or weight loss. GI: Denies any ulcers, blood in his stool. : No dysuria or hematuria. Pulmonary: He does have increased shortness of breath at baseline and he has been told he has COPD, but then he has been told by others he does not have COPD. Endocrine: No heat or cold intolerance. Heme: No easy bruising or bleeding. Cardiac: No chest pain. No chest pressure. Does report increased shortness of breath. He noticed intermittent palpitations almost like he skipped a beat. This is not associated with dizziness or chest pain. Neuro: As per HPI. All other review of systems on a 12-point review of systems are negative. PHYSICAL EXAMINATION: Blood pressure is 128/67, heart rate 71. Sats are 98% on room air. General: In no acute distress. Speaking in full sentences without apparent shortness of breath. Head and neck examination: Normocephalic, atraumatic. Neck: No obvious JV distention. Carotids: I do not appreciate bruits. Heart examination: Regular rate and rhythm. I do not appreciate murmurs, gallops, rubs appreciated. Lungs sound clear. Back: No CVA tenderness to palpation. Abdomen: Soft. Extremities: Warm, no appreciable edema. 2+ distal pulses. Skin without breakdown appreciated. Neuro: Alert and interactive. Gait is not tested. Psych: Appropriate mood and affect. ENT: Mucous membranes moist. CURRENT MEDICATIONS: Include: 1. Heparin subcu. 2. Plavix 75 daily. 3. Aspirin 81 mg a day. 4. Lipitor 80 mg q.h.s. LABORATORY DATA: Show a white count 9. H and H 13.9 and 42.4. Platelets 305,000. Chemistry shows sodium 137, potassium 4.9, respectively. BUN and creatinine 18 and 0.99. IMAGING: Angiogram MRI shows no acute intracranial findings. No acute infarct. Mild findings likely associated with chronic microvascular ischemic changes. The angiogram shows occlusion of the intracranial portion of the left internal carotids before, diminutive right posterior cerebral artery with distal occlusion, questionable saccular aneurysm at the anterior communicating artery. Neck MR shows occluded left internal carotid, [id number] grade stenosis in the origin of left vertebral artery. Brain CT showed no acute intracranial abnormality. An echocardiogram performed on March 30, 2007 showed normal left ventricular size. No LV thrombus. Normal EF. There were some sclerotic changes of the aortic valve but no aortic valve stenosis or insufficiency. Descending aorta was mildly enlarged but no common about significant plaque. EKG shows sinus rhythm. I have not reviewed telemetry as of yet but I am told there is no evidence for atrial fibrillation. Apparently he has had Holter monitoring at some point, which did not show arrhythmias. IMPRESSION: The patient is a gentleman who came in with strokes. He does have abnormalities of his intracranial circulation. He has carotid disease. He has an echocardiogram that shows normal LV function. No evidence for thrombus. Sclerotic changes of the aortic valve. It is not clear if this could be causing problems. We see no evidence of atrial fibrillation. PLANS/RECOMMENDATION: I would defer to the neurology service. If there is a concern for an embolic source in this patient and there is concern that atrial fibrillation might be at player, I think we need to decide if this patient needs to go on warfarin. If he has had symptoms on aspirin and Plavix then that would definitely need to be considered. If Plavix was added after his initial presentation with stroke, and with this current admission not showing any new changes, I think we can continue with that course until we have an evaluation. Because it is often hard to identify arrhythmias like atrial fibrillation with short-term monitoring, I would recommend local intermodal truck driver monitoring more likely than an event monitor. I am not certain if this can be scheduled as an outpatient and he may be going to rehabilitation for some time, but I would be happy to see him in clinic if that needs to happen to order that study. BELKYS
[2017-04-28] MEDS ORDERED: TAMS0.4C98 PO (10:26)
--- NOTE | 2017-04-28 10:31 | PCM.DIMED ---
Discharge Instructions Date of Service Apr 28, 2017 Dates of Hospitalization Apr 26, 2017 at 13:16 Discharge Diagnosis Discharge Diagnosis # Possible acute transient ischemic attack (TIA) vs exacerbation recent stroke symptoms # Benign prostatic hypertrophy (BPH) with acute urinary retention # History of COPD. Stable # Hypertension. # History of depression. Stable # Chronic abdominal pain Diet Discharge Diet: Low fat, Low Sodium, Heart Healthy Activity Discharge Activity: No restrictions Call your provider Call your provider for: Fever or Chills, Shortness of breath, Bleeding, Chest pain, Weakness (unilateral) Patient Instructions Patient Instructions Seek immediate medical attention if any new or worsening signs or symptoms occur. Follow-up plan 1. Followup with primary care provider (Dr. Good) tomorrow 04/29/17 at 1:00PM [address] [address] 2. Followup with neurology as previously planned Follow-up Provider: Loren Good MD Provider: Michelle Mulligan MD, Masoud Apr 28, 2017 10:31
[2017-04-28 10:33] VITALS: BP 108/65; PULSE 92; RESP 20; O2SAT 99
[2017-04-28 10:49] VITALS: PULSE 89
--- NOTE | 2017-04-28 11:08 | NUR ---
Social Work-discharge: Data:EMR reviewed. Pt is on day 2 of hospitalization for stroke per H&P. Pt is medically stable for discharge. PT/ST/OT has cleared pt for home no needs. Pt's sister to provide transport home. No discharge needs identified. All updated and agreeable to plan. Assessment:Pt who is independent at baseline. Plan:Pt to discharge home today via POV. . PT/ST/OT has cleared pt for home no needs.No discharge needs identified. All updated and agreeable to plan. NAYELY Hoff
--- NOTE | 2017-04-28 13:03 | NUR ---
Discharge Went over discharge instructions and new medication with pt who verbally acknowledged understanding. Per Dr Borrego's order pt discharge with watson cath. Switch to leg bag and taught pt how to put it on and empty it. Pt has 1300 appt tomorrow with doctor. Removed intact patent IV. Patient left in wheelchair with [employer]PECTOR PAPER. No s/s of distress at time of dc.
--- NOTE | 2017-04-28 14:54 | PCM.DC.MED ---
Discharge Summary Date of Service Apr 28, 2017 Dates of Hospitalization Date of Hospital Admission Apr 26, 2017 at 13:16 Date of Discharge: Apr 28, 2017 Providers: Admitting Physician: Negrito Cisneros Primary Care Physician: Loren Good MD Attending Physician: Negrito Cisneros Diagnosis at Time of Discharge Diagnosis at Time of Discharge # Possible acute transient ischemic attack (TIA) vs exacerbation recent stroke symptoms # Benign prostatic hypertrophy (BPH) with acute urinary retention # History of COPD. Stable # Hypertension. # History of depression. Stable # Chronic abdominal pain Consultations 1. Neurology 2. Cardiology Procedures XRay, CTs & MRIs Date of Service: 04/26/17 1110 PROCEDURE: CT BRAIN WITHOUT CONTRAST ([id number]) IMPRESSION: No acute intracranial abnormality. Dictated by: Guru Ames M.D. on 04/26/2017 at 11:54 Approved by: Guru Ames M.D. on 04/26/2017 at 11:58 Date of Service: 04/26/17 1835 PROCEDURE: MRI STROKE PROTOCOL ([id number]) Pre- and post-contrast brain MRI, non-contrast brain MR angiogram, pre- and postcontrast neck MR angiogram IMPRESSION: BRAIN MRI: 1. No acute intracranial findings. Specifically, no acute infarct. 2. Mild findings likely associated with chronic microvascular ischemic changes. BRAIN MR ANGIOGRAM: 1. 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 2. Diminutive right posterior cerebral artery with distal occlusion. 3. Questionable saccular aneurysm at the anterior communicating artery. CTA of this region is recommended if further characterization is warranted. NECK MR ANGIOGRAM: 1. Occluded left internal carotid artery at the origin. 2. Moderate to high-grade stenosis of the origin of the left vertebral artery. The estimate of stenosis included in the report of the imaging study was calculated using the NASCET method Dictated by: Emily Piper M.D. on 04/26/2017 at 20:52 Approved by: Emily Piper M.D. on 04/26/2017 at 21:15 Brief History 72-year-old male with history of recent acute right occipital infarct less than one months ago at which time the MRI was also notable for "old, small, left occipital infarcts" had symptoms of visual changes by seeing spots as well as left sided paraesthesia. He is a very poor historian but seems to have presented to hospital today due to new onset of tingling in the right arm and possible worsening of visual symptoms (including blurry vision and seeing more spots). Associated symptoms include vomiting, headache, abdominal pain, blurred vision (left more affected than right), cough w/ sputum onset 1 week ago , worsening memory, trouble breathing, and urinary retention. He attempted to eat this morning but couldn't keep it down. He denies fever, diarrhea, or any other symptoms at this time. He has had about 40lb weight loss over the past 2 years. He says he has been compliant with his medications including taking Aspirin and Plavix since his discharge from hospital last month. Hospital Course # Acute and recurrent neurologic symptoms concerning for recurrent CVA vs TIA vs exacerbation recent stroke symptoms - Acute stroke/CVA ruled out with MRI - Neurology consulted. Per recommendations - Continue with ASA and Plavix - Continue with Statins - ? need for repeat echo given echo just one month ago. Discussed with Dr. Abad (Neurology) on 04/28 and will not repeat at this time. - Hypercoagulable workup ordered on 04/27 and results pending. Discussed with Dr. Good (pt's PCP) who graciously agrees to followup on the results. - Cardiology was also consulted per neurology recommendations. Consideration for event monitor to rule out possible underlying arrhythmia such as Afib will be deferred to outpatient setting per PCP's prerogative # History of COPD. Stable - Nebs/inhalers prn # Hypertension. - Currently normotensive to hypotensive off of home BP meds - Hold BP meds for now - IV Labetalol prn # History of depression. Stable - Continue with home dose Fluoxetine # Abdominal pain - According to patient this is a chronic issue - Continue with supportive care for now # Acute urinary retention on 04/27/17 likely due to underlying BPH. - Patient will be discharged home with Rosas cath and was started on Flomax prior to discharge. Discussed with Dr. Good who graciously agrees to follow patient as outpatient and make necessary referral to urology as outpatient if needed. Exam Vital Signs (Last) Date Time Temp Pulse Resp B/P Pulse Ox O2 Delivery O2 Flow Rate FiO2 04/28/17 10:49 89 04/28/17 10:33 36.9 20 108/65 99 Room Air 04/26/17 16:09 2 Exam General: Alert, Oriented X3, Cooperative, No Acute Distress Head: Normal Eyes: PERRLA, EOMI, Scleral Anicteric Nose: Mucous Membr Moist/[place] Mouth: Mucous Membr Moist/[place] Neck: Supple Chest & Lungs: Chest Wall Normal, Clear to auscultation bilat Cardiovascular: Regular Rate/Rhythm Abdomen: Tender (mildly tender mostly in upper abdomen), Non-distended, Normoactive bowel tones, Soft Extremities: No cyanosis/clubbing/edema bilat Neurological: Grossly Neurologically Intact, Cranial Nerves 2-12 Intact ( grossly intact), Normal Speech Psych: appropriate affect. calm Test 04/26/17 10:35 04/26/17 14:48 04/26/17 19:43 04/27/17 05:25 Neutrophils (%) (Auto) 73.0% (40-74) Lymphocytes (%) (Auto) 14.4% (14-46) Monocytes (%) (Auto) 9.6% (4-12) Eosinophils (%) (Auto) 2.3% (0-5) Basophils (%) (Auto) 0.5% (0-3) Hold Purple Top Tube Received (Received) Hold Blue Top Tube Received (Received) Total Bilirubin 0.6mg/dL (0.0-1.2) Aspartate Amino Transf (AST/SGOT) 23U/L (0-50) Alanine Aminotransferase (ALT/SGPT) 19U/L (0-44) Alkaline Phosphatase 77U/L (25-160) Total Protein 7.4g/dL (6.4-8.4) Albumin 4.2g/dL (3.4-5.0) Hold [place] Top Tube Received (Received) Hold [place] Top Tube Received (Received) Hold Urine Received (Received) Urine Color Yellow (YELLOW) Urine Appearance Clear (CLEAR,HAZY) Urine pH 7.0 (5.0-8.0) Urine Specific [place] 1.010 (1.003-1.035) Urine Protein Negativemg/dL (NEG,TRACE) Urine Glucose (UA) Negativemg/dL (NEGATIVE) Urine Ketones Negativemg/dL (NEGATIVE) Urine Occult Blood Negative (NEGATIVE) Urine Nitrite Negative (NEGATIVE) Urine Bilirubin Negative (NEGATIVE) Urine Urobilinogen Normalmg/dL (NORMAL) Urine Leukocyte Esterase Negative (NEGATIVE) Urine RBC 0-2/hpf (0-2) Urine WBC 0-5/hpf (0-5) Urine Epithelial Cells Occasional/hpf (NONE-MOD) Urine Crystals None seen (NONE SEEN) Urine Bacteria Few/hpf (NONE-FEW) Urine Hyaline Casts None/lpf (NONE) Urine Granular Casts None seen (NONE SEEN) Urine Waxy Casts None seen (NONE SEEN) Urine Red Blood Cell Casts None seen (NONE SEEN) Urine White Blood Cell Casts None seen (NONE SEEN) Urine Mucus Present (None Seen) Urine Trichomonas None seen (NONE SEEN) Urine Yeast None (NONE SEEN) Urinalysis Comment None Urine Culture Reflexed Not indicated White Blood Count 9.0th/mm3 (3.8-10.1) Red Blood Count 4.25mil/mm3 (4.40-5.80) Hemoglobin 13.9g/dL (13.8-17.2) Hematocrit 42.4% (41.0-50.0) Mean Corpuscular Volume 99.8fL (81-100) Mean Corpuscular Hemoglobin 32.7pg (27.0-35.0) Mean Corpuscular Hemoglobin Concent 32.8% (32.0-37.0) Red Cell Distribution Width 13.0% (12.3-15.4) Platelet Count 305bil/L (150-400) Erythrocyte Sedimentation Rate 1mm/hr (0-30) Prothrombin Time 11.1sec (8.1-12.5) Prothromb Time International Ratio 1.04ratio Activated Partial Thromboplast Time 30.2sec (22.8-33.0) Sodium Level 137mEq/L (134-144) Potassium Level 4.9mEq/L (3.5-5.2) Chloride Level 100mEq/L (97-108) Carbon Dioxide Level 29mmol/L (18-29) Blood Urea Nitrogen 18mg/dL (8-27) Creatinine 0.99mg/dL (0.76-1.27) Estimat Glomerular Filtration Rate 79mL/min (>59) Glucose Level 89mg/dL (60-99) Calcium Level 9.3mg/dL (8.5-10.1) Magnesium Level 2.3mg/dL (1.6-2.6) Test 04/27/17 18:18 Anti-Nuclear Antibody Screen Positive (Negative) Complement C3 87mg/dL (82-167) Complement C4 24mg/dL (14-44) Rapid Plasma Reagin Non reactive (Non Reactive) Discharge Medications Discharge Medications Aspirin Chew (Aspirin Chew) 81 Mg Chew 81 MG PO DAILY Prescribed by: LAURIE BALBUENA MD Atorvastatin Calcium (Atorvastatin Calcium) 40 Mg Tablet 80 MG PO HS Prescribed by: LAURIE BALBUENA MD Cholecalciferol (Vitamin D3) (Vitamin D) 5,000 Unit Capsule 5,000 UNIT PO QAM ( Reported) Clopidogrel (Clopidogrel) 75 Mg Tablet 75 MG PO DAILY Prescribed by: LAURIE BALBUENA MD Fluoxetine (Prozac) 10 Mg Capsule 10 MG PO DAILY Prescribed by: LAURIE BALBUENA MD Lisinopril (Lisinopril) 10 Mg Tablet 10 MG PO BID Prescribed by: LAURIE BALBUENA MD Multivitamin (Multivitamins) 1 Each Capsule 1 EACH PO DAILY (Reported) Tamsulosin (Flomax) 0.4 Mg Capsule 0.4 MG PO DAILY Prescribed by: NEGRITO CISNEROS MD As needed Acetaminophen (Acetaminophen) 500 Mg Tablet 500 MG PO BID PRN PRN For Headache ( Reported) Albuterol HFA (Proair HFA) 8.5 Gm Hfa.aer.ad 2 PUFFS INHALATION Q4H PRN PRN For Shortness of Breath (Reported) Docusate Sodium (Colace) 100 Mg Capsule 100 MG PO BID PRN PRN For Constipation Prescribed by: HONORIO EVERETT DO Followup Plan Disposition: Home Follow-up plan 1. Followup with primary care provider (Dr. oGod) tomorrow 04/29/17 at 1:00PM [address] [id number] 2. Followup with neurology as previously planned Discharge Diet: Low fat, Low Sodium, Heart Healthy Discharge Activity: No restrictions Patient Instructions Seek immediate medical attention if any new or worsening signs or symptoms occur. Follow-up Provider: Loren Good MD Provider: Michelle Mulligan MD Time spent 40 min copies to: Michelle Mulligan MD; Loren Good MD, Masoud Apr 28, 2017 14:54
--- NOTE | 2017-04-28 19:54 | PCM.PNMED ---
Subjective Date of Service Apr 28, 2017 Subjective Neurology Consult Note Patient is a 72 year old male with a prior history of CVA x2 (most recent ), HTN, and hyperlipidemia who presents to the ED with complaints of right arm numbness and tingling, headache, blurred vision in the right eye, and left leg weakness. Admitted for TIA vs recurrent stroke. Patient has been having urinary retention overnight as noted on PVR. Pt was asymptomatic with this and is uncertain how long he has had this. This morning, he reports continuing but unchanged right arm numbness, left leg weakness, and blurry vision in his right eye. He denies worsening of any of his presenting symptoms. He states he is still unsteady on his feet and requires assistance while ambulating. He reports continuing abdominal pain and nausea, but denies vomiting. He also states his headache is improving. He denies new vision changes , weakness, numbness, dizziness, syncope, fevers, chills, or diarrhea. Exam Vital Signs Vital Sign - Last Date Time Temp Pulse Resp B/P Pulse Ox O2 Delivery O2 Flow Rate FiO2 04/28/17 10:49 89 04/28/17 10:33 36.9 20 108/65 99 Room Air 04/26/17 16:09 2 Intake and Output 04/27/17 04/27/17 04/28/17 Cumulative From/Thru 15:00 23:00 07:00 04/26/17 10:15 - 04/28/17 06:35 Intake Total 1200 ml 850 ml 2050 ml Output Total 1525 ml 2225 ml Balance 1200 ml -675 ml -175 ml Intake Oral 1200 ml 850 ml 2050 ml Output Urine Total 1525 ml 2225 ml # Voids 1 1 Exam General: Alert, Oriented X3, Cooperative, No acute distress Head: Normocephalic, atraumatic. External ears normal. Eyes: PERRLA, EOMI. Anicteric sclerae. Mouth: Mouth normal, Mucous membranes moist/pink Neck: Neck supple with full range of motion. Chest& Lungs: Clear to auscultation bilaterally with no crackles, wheezes, or rhonchi. Cardiovascular: Regular rate/rhythm, Normal S1, Normal S2, No murmurs/rubs/ gallops Abdomen: Significant tenderness to palpation RLQ and LLQ. Non-distended, No masses, Normoactive bowel tones, Soft Extremities: No cyanosis/clubbing/edema bilaterally Neuro: Normal speech. Strength 4/4 right upper extremity, 3/4 left upper extremity, 3/4 right lower extremity, 2/4 left lower extremity. Possible right sided facial droop. Sensation Intact, Finger-Nose and Heel-Moses slow but deliberate. Delayed saccades with left lateral hemianopsia. Lab and Diagnostics Result Diagram: 04/27/1752404/27/17524 X-Rays, CTs and MRIs Date of Service: 04/26/17 1110 PROCEDURE: CT BRAIN WITHOUT CONTRAST ([id number]) IMPRESSION: No acute intracranial abnormality. Dictated by: Guru Ames M.D. on 04/26/2017 at 11:54 Approved by: Guru Ames M.D. on 04/26/2017 at 11:58 Assessment & Plan Acute ischemic stroke Patient presents with vision changes, right arm numbness, left leg weakness, and increased headache 1 month after his prior stroke. This occurred while on Aspirin, Plavix, and atorvastatin 80 mg. There is significant concern for a cardioembolic stroke given the multifocal presentation and failure of dual antiplatelet therapy and max statin therapy. His prior strokes were occipital strokes with affected posterior circulation, which is more suspicious for cardioembolic strokes. He had a fairly unremarkable Holter monitor on 03/12/16 and normal echo on 03/30/17. Discussed the case with Cardiology, and agree that he should have longer term cardiac monitoring. Pt will follow up with Dr. Ramos outpatient for further workup. Do not recommend anticoagulation before further workup; continue aspirin, Plavix, and atorvastatin for now. He complains of fever, night sweats, and weight loss over the last several months, so he may be hypercoagulable from an unknown malignancy. CT chest on 10/24/16 showed a stable 5 mm left lower lobe lung nodule since 05/13/16. Follow up on hypercoagulable panel outpatient. - Continue stroke protocol - Recommend echocardiogram - Hypercoagulability panel pending - Continue aspirin, Plavix, atorvastatin - Recommend buttermaker cardiac monitoring as per discussion with Cardiology - Monitor on telemetry Patient was discharged before seen by attending. GI Prophylaxis: Not indicated VTE Prophylaxis: Sub-Q Heparin (Unfractionated) Resuscitation Status: CPR: Attempt Resuscitation (discussed and verified with patient) Jona Mcdonnell 14, 2017 11:05
[2017-04-29 14:13] LABS: Perinuclear (P-ANCA) <1:20 titer (Neg:<1:20)
[2017-04-29 20:10] LABS: Protein C-Functional 92 % (73-180); dRVVT 30.2 sec (0.0-47.0)
== END 2017-04-28 13:12 | disposition home or self-care (01) ==
LOC: SED 10:14 → INTOOBSV 13:16 → MPC 13:16
PROVIDERS: ADMIT Internal Medicine; ATTEND Internal Medicine
DX: H53.8 Other visual disturbances (principal); R20.2 Paresthesia of skin; R51 Headache; G45.8 Other transient cerebral ischemic attacks and related syndromes; J44.9 Chronic obstructive pulmonary disease, unspecified; I10 Essential (primary) hypertension; F32.9 Major depressive disorder, single episode, unspecified; E78.5 Hyperlipidemia, unspecified; R10.9 Unspecified abdominal pain; R33.9 Retention of urine, unspecified; M54.5 Low back pain; R19.7 Diarrhea, unspecified; Z86.73 Personal history of transient ischemic attack (TIA), and cerebral infarction without residual deficits; Z87.891 Personal history of nicotine dependence; Z79.82 Long term (current) use of aspirin; Z79.02 Long term (current) use of antithrombotics/antiplatelets; Z79.51 Long term (current) use of inhaled steroids
CPT/HCPCS: 36415; 70450; 70549; 70553; 80048; 80053; 81000; 81240; 83735; 85025; 85027; 85220; 85300; 85303; 85306; 85415; 85420; 85610; 85613; 85651; 85730; 86038; 86147; 86160; 86255; 86592; 92526; 92610; 93005; 94799; 96374; 96375; 96376; 97161; 97167; 99285; A9585; G0378; G8978; G8979; J1644; J2270; J2405; J2550

== ENCOUNTER 2017-05-07 07:02 | Emergency (ER) | payer MEDICARE, MEDICAID ==
[~2017-05-07] VITALS: Ht 167.6 cm; Wt 50.0 kg
[~2017-05-07 07:02] MED LIST changes: +ACET-171 PO; +ALBU8.5H2 INHALATION; -SIMV20TA4 PO; +TAMS0.4C98 PO
[2017-05-07 07:16] VITALS: BP 147/56; PULSE 98; RESP 24; O2SAT 99
--- NOTE | 2017-05-07 07:17 | ED.REPORT ---
HPI-Abd Pain M 40 and Over Date of Service May 07, 2017 ED Provider: Rito Da Silva MD Patient is a 72 year old male with a history of recent stroke, DC, hypertension and COPD who presents to the ED complaining of urinary retention. Associated symptoms include dysuria, abdominal pain and constipation. Patient reports that he had a Rosas catheter but had it removed a week ago because it was hurting. Nursing Notes Stated Complaint: ABDOMINAL PAIN/UNABLE TO URINATE Chief Complaint: Male Abdominal Pain Nursing Notes Reviewed: Yes Allergies: Coded Allergies: No Known Drug Allergies (Verified Allergy, Unknown, 04/26/17) Scheduled Aspirin Chew (Aspirin Chew) 81 Mg Chew 81 MG PO DAILY Atorvastatin Calcium (Atorvastatin Calcium) 40 Mg Tablet 80 MG PO HS Cholecalciferol (Vitamin D3) (Vitamin D) 5,000 Unit Capsule 5,000 UNIT PO QAM Clopidogrel (Clopidogrel) 75 Mg Tablet 75 MG PO DAILY Fluoxetine (Prozac) 10 Mg Capsule 10 MG PO DAILY Lisinopril (Lisinopril) 10 Mg Tablet 10 MG PO BID Multivitamin (Multivitamins) 1 Each Capsule 1 EACH PO DAILY Tamsulosin (Flomax) 0.4 Mg Capsule 0.4 MG PO DAILY Scheduled PRN Acetaminophen (Acetaminophen) 500 Mg Tablet 500 MG PO BID PRN PRN For Headache Albuterol HFA (Proair HFA) 8.5 Gm Hfa.aer.ad 2 PUFFS INHALATION Q4H PRN PRN For Shortness of Breath Docusate Sodium (Colace) 100 Mg Capsule 100 MG PO BID PRN PRN For Constipation General Time Seen by MD: 07:17 Chief Complaint Unable to urinate Hx Obtained From: Patient Arrived By: Walk-in Sudden in Onset?: Yes Location: : Abdomen lower Quality: Painful Associated with: Reports: Constipation Recent Healthcare: Recent doctor visit, Recent hospitalization Similar Sx Previous: Yes Past Medical History Past Medical History Notes: PCP: Dr. Loren Good 04/07 discharge: new CVA 03/31/2017 Past Medical History COPD CVA x2 Chronic low back pain Chronic diarrhea Environmental allergies Hypertension Reports: Hyperlipidemia Past Surgical History Colonoscopy Endoscopy Hand surgery Thumb amputation Reports: Cataract surgery Family History Reports: Coronary artery disease Smoking History Former Smoker Social History Alcohol Use: Denies alcohol use Drug Use: Denies drug use Other Social History: Lives alone, Local resident Ambulatory Status Independent Review of Systems Constitutional: Denies: Chills, Fever Respiratory: Denies: Non-productive cough, Shortness of breath GI: Reports: Abdominal pain, Constipation Male: Reports Urination decreased Complete sys rev & neg: except as marked. Physical Exam Initial Vital Signs Vital Signs (First) Date Time Temp Pulse Resp B/P Pulse Ox O2 Delivery O2 Flow Rate FiO2 05/07/17 07:16 36.9 98 24 147/56 99 Room Air Initial VS: Reviewed General/Constitutional: Awake, Alert Respiratory / Chest: Atraumatic, Breath sounds NL, Breath sounds = bilat, No respiratory distress Cardiovascular: Heart rate NL, Regular rhythm, Heart sounds NL Abdomen: Atraumatic, Soft Tenderness/Guarding/Rebound: Positive: Tender diffuse rigid abdomen Back: Atraumatic, Full range of motion Head / Eyes: Atraumatic, Normocephalic, PERRL, EOMI Skin: Atraumatic, Color NL, No rash, Warm, Dry Neurologic: Oriented X3, Speech NL Psychiatric: Affect NL, Mood NL Interpretation & Diagnostics Lab Results Interpretation Result Diagram: 05/07/17 0855 05/07/17 0855 Test 05/07/17 07:41 05/07/17 08:55 Urine Color Straw (YELLOW) Urine Appearance Hazy (CLEAR,HAZY) Urine pH 6.0 (5.0-8.0) Urine Specific [place] 1.010 (1.003-1.035) Urine Protein Negativemg/dL (NEG,TRACE) Urine Glucose (UA) Negativemg/dL (NEGATIVE) Urine Ketones Negativemg/dL (NEGATIVE) Urine Occult Blood Negative (NEGATIVE) Urine Nitrite Negative (NEGATIVE) Urine Bilirubin Negative (NEGATIVE) Urine Urobilinogen Normalmg/dL (NORMAL) Urine Leukocyte Esterase Negative (NEGATIVE) Urine RBC 0-2/hpf (0-2) Urine WBC 0-5/hpf (0-5) Urine Epithelial Cells Occasional/hpf (NONE-MOD) Urine Crystals None seen (NONE SEEN) Urine Bacteria None/hpf (NONE-FEW) Urine Hyaline Casts None/lpf (NONE) Urine Granular Casts None seen (NONE SEEN) Urine Waxy Casts None seen (NONE SEEN) Urine Red Blood Cell Casts None seen (NONE SEEN) Urine White Blood Cell Casts None seen (NONE SEEN) Urine Mucus Present (None Seen) Urine Trichomonas None seen (NONE SEEN) Urine Yeast None (NONE SEEN) Urinalysis Comment None Urine Culture Reflexed Not indicated White Blood Count 9.5th/mm3 (3.8-10.1) Red Blood Count 3.69mil/mm3 (4.40-5.80) Hemoglobin 12.0g/dL (13.8-17.2) Hematocrit 35.6% (41.0-50.0) Mean Corpuscular Volume 96.5fL (81-100) Mean Corpuscular Hemoglobin 32.5pg (27.0-35.0) Mean Corpuscular Hemoglobin Concent 33.7% (32.0-37.0) Red Cell Distribution Width 12.4% (12.3-15.4) Platelet Count 281bil/L (150-400) Neutrophils (%) (Auto) 68.9% (40-74) Lymphocytes (%) (Auto) 15.9% (14-46) Monocytes (%) (Auto) 10.1% (4-12) Eosinophils (%) (Auto) 4.5% (0-5) Basophils (%) (Auto) 0.4% (0-3) Sodium Level 128mEq/L (134-144) Potassium Level 4.5mEq/L (3.5-5.2) Chloride Level 91mEq/L (97-108) Carbon Dioxide Level 26mmol/L (18-29) Blood Urea Nitrogen 13mg/dL (8-27) Creatinine 0.72mg/dL (0.76-1.27) Estimat Glomerular Filtration Rate 114mL/min (>59) Glucose Level 103mg/dL (60-99) Calcium Level 9.0mg/dL (8.5-10.1) Total Bilirubin 0.5mg/dL (0.0-1.2) Aspartate Amino Transf (AST/SGOT) 20U/L (0-50) Alanine Aminotransferase (ALT/SGPT) 15U/L (0-44) Alkaline Phosphatase 84U/L (25-160) Total Protein 6.3g/dL (6.4-8.4) Albumin 3.6g/dL (3.4-5.0) Lipase 45U/L (13-60) Hold Iverson Top Tube Received (Received) Re-Eval/Medical Decision Time of Eval: 13:22 Patient Status: Condition improved Re-Evaluation/Progress Note: Discussed results and plan for discharge. Patient understands and agrees to plan. All questions were addressed. Counseled Regarding: Diagnosis, Lab results, Need for follow-up, When/why to return to ED Discharge & Departure Primary Impression: Generalized abdominal pain Disposition: Home Vital Signs - All Vital Signs Date Time Temp Pulse Resp B/P Pulse Ox O2 Delivery O2 Flow Rate FiO2 05/07/17 13:48 74 15 130/43 97 Room Air 05/07/17 10:48 74 15 135/50 100 Room Air 05/07/17 07:16 36.9 98 24 147/56 99 Room Air )( All Prior VS Reviewed: Yes Condition: Stable Patient Instructions: Acute Abdominal Pain (ED) Additional Instructions: Your labs were all normal and reassuring. There was no sign of infection in your urine. There was only 200 mL of residual urine in your bladder immediately following the catheter placement. Therefore, I do not believe it is necessary to leave the catheter in place. Follow up with your primary care physician early next week. If you are unable to urinate for 12-24 hours, return to the ED and we can put the catheter back in. Return to the emergency department if you develop any new or worsening symptoms. Referrals: Loren Good MD (PCP) Scribe Attestation Portions of this note were transcribed by Temi Tomas. I, Dr. Da Silva personally performed the history, physical exam and medical decision-making; I reviewed and confirmed the accuracy of the information in the transcribed note. Signed by: Chiki Brody, 05/07/17 and 1323 copies to: Loren Good MD, Kirk H MD May 07, 2017 07:17 Liliana Tomas May 07, 2017 07:37
[2017-05-07 08:09] LABS: APPEARANCE,URINE HAZY (CLEAR,HAZY); COLOR,URINE STRAW (YELLOW); OCCULT BLOOD,URINE NEGATIVE (NEGATIVE); UROBILINOGEN,URINE NORMAL (NORMAL)
[2017-05-07 09:10] LABS: BASOPHILS % (AUTO) 0.4 % (0-3); EOSINOPHILS % (AUTO) 4.5 % (0-5); MONOCYTES % (AUTO) 10.1 % (4-12); Mean Corpuscular Hemoglobin 32.5 pg (27.0-35.0); Mean Corpuscular Volume 96.5 fL (81-100); NEUTROPHILS % (AUTO) 68.9 % (40-74); Platelet Count 281 bil/L (150-400)
[2017-05-07 10:48] VITALS: BP 135/50; PULSE 74; RESP 15; O2SAT 100
[2017-05-07 13:48] VITALS: BP 130/43; PULSE 74; RESP 15; O2SAT 97
== END 2017-05-07 13:50 | disposition home or self-care (01) ==
LOC: SED 07:02
DX: R10.84 Generalized abdominal pain (principal); K59.00 Constipation, unspecified; R30.0 Dysuria; J44.9 Chronic obstructive pulmonary disease, unspecified; I10 Essential (primary) hypertension; E78.5 Hyperlipidemia, unspecified; I25.2 Old myocardial infarction; Z79.82 Long term (current) use of aspirin; Z86.73 Personal history of transient ischemic attack (TIA), and cerebral infarction without residual deficits; Z87.891 Personal history of nicotine dependence

== ENCOUNTER 2017-05-09 13:17 | Observation (INO) | payer MEDICARE, MEDICAID ==
[~2017-05-09] VITALS: Ht 167.6 cm; Wt 50.0 kg
[2017-05-09] VITALS (7 sets, daily range): BP systolic 109–140; BP diastolic 43–62; PULSE 77–110; RESP 16–20; O2SAT 98–100
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
[2017-05-09 13:58] LABS: BASOPHILS % (AUTO) 1.4 % (0-3); EOSINOPHILS % (AUTO) 2.5 % (0-5); MONOCYTES % (AUTO) 9.8 % (4-12); Mean Corpuscular Hemoglobin 32.7 pg (27.0-35.0); Mean Corpuscular Volume 97.2 fL (81-100); NEUTROPHILS % (AUTO) 68.3 % (40-74); Platelet Count 292 bil/L (150-400)
[2017-05-09] MEDS ORDERED: Albuterol-Ipratropium 3 mL Inhalation Solution NEB ONE (14:00)
[2017-05-09 14:13] LABS: TROPONIN T < 0.010 ug/L (0.0-0.011)
--- NOTE | 2017-05-09 14:28 | DRSVH ---
PROCEDURE: X-RAY CHEST ONE VIEW, PORTABLE ([id number]) INDICATIONS: Chest pain. TECHNIQUE: One view of the chest was acquired. COMPARISON: [facility], CT, CT ANGIO CHEST PE, 04/20/2017, 1:10. [facility], CR, XR CHEST 1VW (PORTABLE), 04/19/2017, 22:03. FINDINGS: Surgical changes and devices: None. Lungs and pleura: Hyperinflation suggesting COPD. No pleural effusions or pneumothorax. Lungs are c lear. Mediastinum: Mediastinal contours appear normal. Heart size is normal. Bones and chest wall: No suspicious bony lesions. Overlying soft tissues appear unremarkable. IMPRESSION: No acute cardiopulmonary disease. Suspect COPD. Dictated by: Guru Ames M.D. on 05/09/2017 at 14:26 Approved by: Guru Ames M.D. on 05/09/2017 at 14:26
[2017-05-09] MEDS ORDERED: HYDROmorphone 0.5 mg/0.5 mL iSecure Syringe IVPUSH ONE (15:45)
[2017-05-09] MEDS ORDERED: Polyethylene Glycol (PEG) 17 Gm Powder PO PRN (16:55)
[2017-05-09] MEDS ORDERED: Alum-Mag Hydrox-Simeth 30 mL Suspension PO PRN (16:55)
[2017-05-09] MEDS ORDERED: Ondansetron 2 mg/mL 2 mL Inj IVPUSH PRN (16:55)
--- NOTE | 2017-05-09 18:13 | DRSVH ---
PROCEDURE: CT ANGIO CHEST PULMONARY EMBOLISM ([id number]) INDICATIONS: CP, + Dimer TECHNIQUE: After the administration of intravenous contrast, 2 mm thick sections acquired from the pulmonary api morena to the posterior costophrenic angles. 3-dimensional maximum intensity projection (MIP) coronal a nd sagittal reformats were then acquired through the thorax. For radiation dose reduction, the follo wing was used: automated exposure control, adjustment of mA and/or kV according to patient size. COMPARISON: [facility], CT, CT ANGIO CHEST PE, 05/13/2016, 17:56. [facility] , CT, CT ANGIO CHEST PE, 10/24/2016, 18:13. [facility], CT, CT ANGIO CHEST PE, 04/20/2017 , 1:10. FINDINGS: Image quality: Excellent. Pulmonary arteries: Pulmonary arteries are normal in size, and demonstrate no intraluminal filling d efects to suggest central pulmonary embolism. Lungs and pleura: There are apical scars. The 5 mm lung nodule in the left lower lobe is stable sinc e 05/13/2016. Lungs are otherwise clear. No pleural effusions or pneumothorax. Central and periphera l airways are patent. Mediastinum: Heart size is normal, without pericardial effusion. No mediastinal or hilar adenopathy . Thoracic aorta is normal in caliber and enhancement. Esophagus is normal in caliber, without hiat al hernia. Bones and chest wall: No suspicious bony lesions. Ribs and thoracic spine appear intact throughout. Thyroid gland is normal. No axillary or supraclavicular adenopathy. Abdomen: Visualized upper abdominal solid organs appear normal in the early arterial phase of enhanc ement. IMPRESSION: 1. No evidence for acute central pulmonary embolism. 2. Stable 5 mm left lower lobe lung nodule since 05/13/2016. Please see followup recommendation. Fleischner Society criteria for SOLID lung nodule followup. Nodule size (mm)Low-risk patientHigh-risk [id number] follow-up neededFollow-up at 12 mo; if no hernandez e, no further follow-up>[id number] CT at 12 mo; if no change, no further follow-up needed.Initial f ollow-up CT at 6-12 mo, then 18-24 mo if no change. >6-8Initial follow-up CT at 6-12 mo, then 18-24 mo if no change. Initial follow-up CT at 3-6 mo, then 9-12 mo and 24 mo if no change. >8Follow-up CT at 3, 9, 24 mo. Or PET and/or biopsy.Same as for low-risk pts. Fleischner Society criteria for SUB-SOLID lung nodule followup. Solitary pure ground-glass nodules5 mm or lessNo followup needed. >5 mm3 mo follow-up CT to confirm persistence. Then annual CT for 3 years. Part-solid nodules3 mo follow-up CT to confirm persistence . If persistent with solid component <5 mm, annual CT for at least 3 years. If solid component is 5 mm or more, biopsy or surgical resection. Consider PET-CT for lesions > 10 mm. Multiple sub-solid nodulesPure ground glass nodules [address] at 2 and 4 years. Pure ground glass nodules >5 mm without dominant lesion. [address] to confirm persistence, then annual followup CT for at least 3 years. Dominant nodule(s) with part-solid or solid component. [address] to confirm persistence. If persistent, consider biopsy or surgical resection, shari if lesions have >5 m m solid component. Dictated by: Guru Ames M.D. on 05/09/2017 at 18:07 Approved by: Guru Ames M.D. on 05/09/2017 at 18:11
--- NOTE | 2017-05-09 18:53 | PCM.HPMED ---
Subjective Date of Service May 09, 2017 Primary Provider: Admitting Physician: Arnulfo Rodriguez MD Primary Care Physician: Loren Good MD Attending Physician: Arnulfo Rodriguez MD Admit Status: From the Emergency Department, 23-Hour Observation Chief Complaint: Chest pain/90 minutes History of Present Illness: 72-year-old gentleman with past medical history of CVA 2, COPD, chronic diarrhea, hypertension, celiac artery and SMA stenosis with recent hospitalization for visual disturbance recurrent CVA and discharged on aspirin and Plavix came to emergency room due to chest pain of 90 minutes. He describes left substernal dull aching chest pain 8/10, continuos but pain level goes down intermittently. Pain started at rest. No diaphoresis. Has mild dyspnea with pain. He had stress test done a year ago and reportedly normal.not available in [facility] ED course: unremarkable vitals and exam,chest pain somehow improved with nitro but not resolved EKG NSR,trop negative x2,d-dimer elevated and CTA negative for PE admission requested for workup of chest pain Review of Systems: A comprehensive review of systems performed, pertinent positives and negatives included in history of present illness Allergies Coded Allergies: No Known Drug Allergies (Verified Allergy, Unknown, 05/09/17) tamsulosin (Verified Adverse Reaction, Intermediate, HYPOTENSION, 05/09/17) Home Medications Aspirin Chew (Aspirin Chew) 81 Mg Chew 81 MG PO DAILY Atorvastatin Calcium (Atorvastatin Calcium) 40 Mg Tablet 80 MG PO HS Cholecalciferol (Vitamin D3) (Vitamin D) 5,000 Unit Capsule 5,000 UNIT PO QAM Clopidogrel (Clopidogrel) 75 Mg Tablet 75 MG PO DAILY Fluoxetine (Prozac) 10 Mg Capsule 10 MG PO DAILY Lisinopril (Lisinopril) 10 Mg Tablet 10 MG PO BID Multivitamin (Multivitamins) 1 Each Capsule 1 EACH PO DAILY Tamsulosin (Flomax) 0.4 Mg Capsule 0.4 MG PO DAILY Scheduled PRN Acetaminophen (Acetaminophen) 500 Mg Tablet 500 MG PO BID PRN PRN For Headache Albuterol HFA (Proair HFA) 8.5 Gm Hfa.aer.ad 2 PUFFS INHALATION Q4H PRN PRN For Shortness of Breath Docusate Sodium (Colace) 100 Mg Capsule 100 MG PO BID PRN PRN For Constipation PMH Hypertension Hyperlipidemia COPD CVA x2 on ASA + Plavix Chronic low back pain Chronic diarrhea Environmental allergies Hypertension Chronic abdominal pain BPH Depression Anxiety Hx pneumonia Chronic diarrhea 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 seen on prior CT abdomen and pelvis, but without clinical findings of SMA syndrome Surgical History Colonoscopy Endoscopy Hand surgery Thumb amputation Reports: Cataract surgery Family History Mother age 86 [place] in her 60's and then again at 80 Maternal Aunt with Seizures Another Maternal aunt age 52 2/2 CVA Maternal grandfather age 60 2/2 [place] Social History Hx Alcohol Use: Yes (quit drinking in the 80's) Hx Substance Use: Yes (quit all drugs in the 80's) Smoking Status: Former Smoker Exam Vital Signs Vital Sign - Last Date Time Temp Pulse Resp B/P Pulse Ox O2 Delivery O2 Flow Rate FiO2 05/09/17 18:02 36.8 82 20 109/62 98 Room Air Exam Gen. patient is lying comfortably in hospital bed HEENT: Head is normocephalic atraumatic, Pupils equal and reactive, extraocular movements intact, Lungs clear to auscultation bilaterally Heart regular rate and rhythm without murmurs gallops or rubs Abdomen mildly tender all over and states that is his baseline ,without hepatosplenomegaly Extremities pulses are present dorsalis pedis posterior tibialis and radial. tSkin is warm and dry there are no rashes, Psych alert and oriented to person place and time Neuro cranial nerves II through XII are grossly intact Lymph: There is no lymphadenopathy appreciated in the cervical supra infraclavicular regions : no watson Lab and Diagnostics Result Diagram: 05/09/17 1333 05/09/17 1333 X-Rays, CTs and MRIs PROCEDURE: CT ANGIO CHEST PULMONARY EMBOLISM ([id number]) INDICATIONS: CP, + Dimer TECHNIQUE: After the administration of intravenous contrast, 2 mm thick sections acquired from the pulmonary apices to the posterior costophrenic angles. 3-dimensional maximum intensity projection (MIP) coronal and sagittal reformats were then acquired through the thorax. For radiation dose reduction, the following was used: automated exposure control, adjustment of mA and/or kV according to patient size. COMPARISON: [facility], CT, CT ANGIO CHEST PE, 05/13/2016, 17:56. [facility], CT, CT ANGIO CHEST PE, 10/24/2016, 18:13. [facility], CT, CT ANGIO CHEST PE, 04/20/2017, 1:10. FINDINGS: Image quality: Excellent. Pulmonary arteries: Pulmonary arteries are normal in size, and demonstrate no intraluminal filling defects to suggest central pulmonary embolism. Lungs and pleura: There are apical scars. The 5 mm lung nodule in the left lower lobe is stable since 05/13/2016. Lungs are otherwise clear. No pleural effusions or pneumothorax. Central and peripheral airways are patent. Mediastinum: Heart size is normal, without pericardial effusion. No mediastinal or hilar adenopathy. Thoracic aorta is normal in caliber and enhancement. Esophagus is normal in caliber, without hiatal hernia. Bones and chest wall: No suspicious bony lesions. Ribs and thoracic spine appear intact throughout. Thyroid gland is normal. No axillary or supraclavicular adenopathy. Abdomen: Visualized upper abdominal solid organs appear normal in the early arterial phase of enhancement. IMPRESSION: 1. No evidence for acute central pulmonary embolism. 2. Stable 5 mm left lower lobe lung nodule since 05/13/2016. Please see followup recommendation. Fleischner Society criteria for SOLID lung nodule followup. Nodule size (mm)Low-risk patientHigh-risk [id number] follow-up neededFollow-up at 12 mo; if no change, no further follow-up>[id number] CT at 12 mo; if no change, no further follow-up needed.Initial follow-up CT at 6-12 mo, then 18-24 mo if no change. >6-8Initial follow-up CT at 6-12 mo, then 18-24 mo if no change. Initial follow-up CT at 3-6 mo, then 9-12 mo and 24 mo if no change. > 8Follow-up CT at 3, 9, 24 mo. Or PET and/or biopsy.Same as for low-risk pts. Fleischner Society criteria for SUB-SOLID lung nodule followup. Solitary pure ground-glass nodules5 mm or lessNo followup needed. >5 mm3 mo follow-up CT to confirm persistence. Then annual CT for 3 years. Part-solid nodules3 mo follow-up CT to confirm persistence. If persistent with solid component <5 mm, annual CT for at least 3 years. If solid component is 5 mm or more, biopsy or surgical resection. Consider PET-CT for lesions > 10 mm. Multiple sub-solid nodulesPure ground glass nodules [address] at 2 and 4 years. Pure ground glass nodules >5 mm without dominant lesion. [address] to confirm persistence, then annual followup CT for at least 3 years. Dominant nodule(s) with part-solid or solid component. [address] to confirm persistence. If persistent, consider biopsy or surgical resection, shari if lesions have >5 mm solid component. Dictated by: Guru Ames M.D. on 05/09/2017 at 18:07 Assessment & Plan 72-year-old gentleman with past medical history of CVA 2, COPD, chronic diarrhea, hypertension, celiac artery and SMA stenosis with recent hospitalization for visual disturbance recurrent CVA and discharged on aspirin and Plavix came to emergency room due to chest pain of 90 minutes. # chest pain,acute,poa -chest pain somehow improved with nitro but not resolved -EKG NSR,trop negative x2,d-dimer elevated and CTA negative for PE -trop in am, -limited echo as he had a recent one ,stress test in am -c/w ASA,plavix and statin -will not initiate BB given pending stress test # recurrent CVA --c/w ASA,plavix and statin -patient states he still has on and off visual disturbance,may need opthalmology eval outpatient # COPD -quit smoking 40 yrs ago but he states he is exposed second hand from friends # chronic diarrhea -he has GI appointment in June -chronic and stable # HTN -c/w home meds # history of celiac artery and SMA stenosis -stable dvt ppx lovenox observation status full code copies to: Toya Daugherty MD; Loren Good MD, Melaku MD May 09, 2017 18:53
--- NOTE | 2017-05-09 22:00 | NUR ---
Admit note: Pt admitted from the ER, denies chest pain and shortness of breath on admit. Alert and oriented x3. Tele SR 70s. Pt aware of plan of care and scheduled tests tomorrow, will be NPO after midnight. Oriented to room and call light, instructed to call with needs.
[2017-05-10] VITALS (9 sets, daily range): BP systolic 99–122; BP diastolic 51–63; PULSE 67–99; RESP 15–22; O2SAT 96–99
[2017-05-10 06:50] LABS: BASOPHILS % (AUTO) 1.1 % (0-3); EOSINOPHILS % (AUTO) 12.7 % (0-5); MONOCYTES % (AUTO) 10.6 % (4-12); Mean Corpuscular Hemoglobin 32.9 pg (27.0-35.0); Mean Corpuscular Volume 97.2 fL (81-100); NEUTROPHILS % (AUTO) 60.6 % (40-74); Platelet Count 278 bil/L (150-400)
[2017-05-10] MEDS: Albuterol 2.5 mg/3 mL Inhalation Solution NEB PRN ×2 (07:10→12:51)
[2017-05-10 07:22] LABS: Magnesium 2.1 mg/dL (1.6-2.6)
[2017-05-10 08:48] LABS: APPEARANCE,URINE CLEAR (CLEAR,HAZY); COLOR,URINE STRAW (YELLOW); OCCULT BLOOD,URINE NEGATIVE (NEGATIVE); UROBILINOGEN,URINE NORMAL (NORMAL)
--- NOTE | 2017-05-10 14:49 | NUR ---
Social Work-initial assessment/readiness for discharge: Data:See initial assessment. Pt is a 72 y/o male who was admitted on 04/2517 for chest pain per H&P. Pt's insurance is [employer] and [facility] [employer] and PCP is Loren Good MD. EMR reviewed. Pt is a readmission discharging home with no needs. SW met with pt at bedside to discuss discharge planning, SW role explained. Pt is alert and oriented x3. Pt resides at the [facility] where he remains independent with ADLS. Pt has resided there for 14 years. Pt does use a cane to ambulate and does drive. Pt either walks or uses the bus. Pt has no HH or SNF history. Pt has no long-term care insurance or VA benefits. SW discussed DPOA/ advanced directive, pt confirms that a copy has been provided to him he just needs to complete it, SW encouraged a copy to be completed. Pt confirms that his sister Igor will provide transport home at discharge, pt declined having SW call her. SW provided phone number and plan on white board in room. No discharge needs identified. SW will continue to follow if needs arise. Assessment:Pt who is independent at baseline. Plan:Pt to discharge back to [facility] when medically stable. No anticipated discharge needs. SW will continue to follow if needs arise. NAYELY Hoff Addendum: 05/10/17 at 1451 by NICOLE MISHRA SS Amended: Links added.
--- NOTE | 2017-05-10 15:25 | DRSVH ---
PROCEDURE: 1 DAY PHARMACOLOGICAL STRESS TEST Rest and pharmacological stress myocardial perfusion SPECT with gated imaging and ejection fraction RADIOPHARMACEUTICAL: 8.3 mCi Tc-99m tetrafosmin IV at rest and 22.0 mCi Tc-99m tetrafosmin IV at peak effect of pharmacological stress. A [id number]-[id number] was performed. INDICATIONS: Chest pain. TECHNIQUE: Radiopharmaceutical was injected at peak stress test, and also at rest. SPECT images wer e obtained. SPECT myocardial perfusion images were displayed in short axis, horizontal long axis, an d vertical long axis views. Gated images were reviewed using Auto[employer] software. COMPARISON: None. CARDIAC STRESS: A pharmacologic stress test was performed under the supervision of an attending staff, using an infus ion of 5.0 mm there 0.4 mg Lexiscan. Hemodynamic data: There is normal blood pressure and heart rate response to pharmacologic stress. Symptoms: The patient complained of chest pain during the stress portion of the examination Aminophylline: 4 mm 100 mg EKG: No diagnostic changes of ischemia; PACs were noted. FINDINGS: Raw data: There is good myocardial uptake of radiotracer. No significant motion artifacts. Left ventricle function: Gated images demonstrate normal left ventricular wall thickening. No segme ntal wall motion abnormalities. No transient ischemic dilation. Left ventricle resting end diastoli c volume is 53 mL. Left ventricle stress ejection fraction is 87%; normal range is above 45%. Myocardial perfusion: There is normal distribution of activity in the right and left ventricular lorena cardium. No fixed or reversible perfusion defects. IMPRESSION: 1. No stress perfusion changes to indicate ischemia. 2. It is noted the patient complained of chest pain during examination. However, no EKG changes of is chemia. 3. Ejection fraction 87%. PQRS ATTESTATIONS: Measure 322 - Is this imaging test primarily performed on a low-risk surgery patient for preoperative evaluation within 30 days preceding their low-risk non-cardiac surgery? Low-risk surgery is defined as cardiac or myocardial infarction less than 1%, including (but not limited to) endoscopic pr ocedures, superficial procedures, cataract surgery, and excisional breast surgery: Answer: No Measure 323 - Is this imaging test performed primarily for the monitoring of an asymptomatic patient who had percutaneous coronary intervention on the visit date or within 2 years of the visit date? An swer: No Measure 324 - Is this imaging test performed primarily for the initial detection and risk assessment on an asymptomatic, low coronary heart disease patient? Low CHD risk definition = clinicians should consider the maximum number of available patient factors used to estimate risk based on [place] (A TP III criteria), typically age, gender, diabetes, smoking status, and use of blood pressure medicati on, and integrate age appropriate estimates for missing elements, such as LDL or standard blood press ure. Answer: No Dictated by: Naye Ivy M.D. on 05/10/2017 at 15:19 Approved by: Naye Ivy M.D. on 05/10/2017 at 15:23
--- NOTE | 2017-05-10 17:28 | NUR ---
Chest Pressure/SOB Patient reporting residual "slight chest pressure" following stress test today-Improving. Denies chest pain. Patient also reports feelings of shortness of breath-at baseline. Patient reports clinicians have told him he is a "shallow breather" or "a top end breather" and that he does not breath deeply, which leaves him having intermittent shortness of breath.
--- NOTE | 2017-05-10 17:35 | PCM.PNMED ---
Subjective Date of Service May 10, 2017 Subjective Denies any new issues/complaints Exam Vital Signs Vital Sign - Last Date Time Temp Pulse Resp B/P Pulse Ox O2 Delivery O2 Flow Rate FiO2 05/10/17 17:24 37.2 94 20 107/58 98 Room Air General: Alert, Cooperative, No Acute Distress Head: Normal Eyes: Scleral Anicteric Nose: Mucous Membr Moist/[place] Mouth: Mucous Membr Moist/[place] Neck: Supple Chest & Lungs: Chest Wall Normal, Clear to auscultation & percussion Cardiovascular: Regular Rate/Rhythm Abdomen: Non-tender, Non-distended, Normoactive bowel tones, Soft Extremities: No cyanosis/clubbing/edma bilat Neurological: Grossly Neurologically Intact, Normal Speech IVs and Medications Medications Reviewed: Medications were reviewed in detail Lab and Diagnostics Result Diagram: 05/10/1762305/10/17623 X-Rays, CTs and MRIs PROCEDURE: CT ANGIO CHEST PULMONARY EMBOLISM ([id number]) INDICATIONS: CP, + Dimer TECHNIQUE: After the administration of intravenous contrast, 2 mm thick sections acquired from the pulmonary apices to the posterior costophrenic angles. 3-dimensional maximum intensity projection (MIP) coronal and sagittal reformats were then acquired through the thorax. For radiation dose reduction, the following was used: automated exposure control, adjustment of mA and/or kV according to patient size. COMPARISON: [facility], CT, CT ANGIO CHEST PE, 05/13/2016, 17:56. [facility], CT, CT ANGIO CHEST PE, 10/24/2016, 18:13. [facility], CT, CT ANGIO CHEST PE, 04/20/2017, 1:10. FINDINGS: Image quality: Excellent. Pulmonary arteries: Pulmonary arteries are normal in size, and demonstrate no intraluminal filling defects to suggest central pulmonary embolism. Lungs and pleura: There are apical scars. The 5 mm lung nodule in the left lower lobe is stable since 05/13/2016. Lungs are otherwise clear. No pleural effusions or pneumothorax. Central and peripheral airways are patent. Mediastinum: Heart size is normal, without pericardial effusion. No mediastinal or hilar adenopathy. Thoracic aorta is normal in caliber and enhancement. Esophagus is normal in caliber, without hiatal hernia. Bones and chest wall: No suspicious bony lesions. Ribs and thoracic spine appear intact throughout. Thyroid gland is normal. No axillary or supraclavicular adenopathy. Abdomen: Visualized upper abdominal solid organs appear normal in the early arterial phase of enhancement. IMPRESSION: 1. No evidence for acute central pulmonary embolism. 2. Stable 5 mm left lower lobe lung nodule since 05/13/2016. Please see followup recommendation. Fleischner Society criteria for SOLID lung nodule followup. Nodule size (mm)Low-risk patientHigh-risk [id number] follow-up neededFollow-up at 12 mo; if no change, no further follow-up>[id number] CT at 12 mo; if no change, no further follow-up needed.Initial follow-up CT at 6-12 mo, then 18-24 mo if no change. >6-8Initial follow-up CT at 6-12 mo, then 18-24 mo if no change. Initial follow-up CT at 3-6 mo, then 9-12 mo and 24 mo if no change. > 8Follow-up CT at 3, 9, 24 mo. Or PET and/or biopsy.Same as for low-risk pts. Fleischner Society criteria for SUB-SOLID lung nodule followup. Solitary pure ground-glass nodules5 mm or lessNo followup needed. >5 mm3 mo follow-up CT to confirm persistence. Then annual CT for 3 years. Part-solid nodules3 mo follow-up CT to confirm persistence. If persistent with solid component <5 mm, annual CT for at least 3 years. If solid component is 5 mm or more, biopsy or surgical resection. Consider PET-CT for lesions > 10 mm. Multiple sub-solid nodulesPure ground glass nodules [address] at 2 and 4 years. Pure ground glass nodules >5 mm without dominant lesion. [address] to confirm persistence, then annual followup CT for at least 3 years. Dominant nodule(s) with part-solid or solid component. [address] to confirm persistence. If persistent, consider biopsy or surgical resection, shari if lesions have >5 mm solid component. Dictated by: Guru Ames M.D. on 05/09/2017 at 18:07 Additional Diagnostics: Date of Service: 05/10/17 0202 PROCEDURE: 1 DAY PHARMACOLOGICAL STRESS TEST Rest and pharmacological stress myocardial perfusion SPECT with gated imaging and ejection fraction IMPRESSION: 1. No stress perfusion changes to indicate ischemia. 2. It is noted the patient complained of chest pain during examination. However , no EKG changes of ischemia. 3. Ejection fraction 87%. PQRS ATTESTATIONS: Measure 322 - Is this imaging test primarily performed on a low-risk surgery patient for preoperative evaluation within 30 days preceding their low-risk non- cardiac surgery? Low-risk surgery is defined as cardiac or myocardial infarction less than 1%, including (but not limited to) endoscopic procedures, superficial procedures, cataract surgery, and excisional breast surgery: Answer : No Measure 323 - Is this imaging test performed primarily for the monitoring of an asymptomatic patient who had percutaneous coronary intervention on the visit date or within 2 years of the visit date? Answer: No Measure 324 - Is this imaging test performed primarily for the initial detection and risk assessment on an asymptomatic, low coronary heart disease patient? Low CHD risk definition = clinicians should consider the maximum number of available patient factors used to estimate risk based on [place] ( ATP III criteria), typically age, gender, diabetes, smoking status, and use of blood pressure medication, and integrate age appropriate estimates for missing elements, such as LDL or standard blood pressure. Answer: No Dictated by: Naye Ivy M.D. on 05/10/2017 at 15:19 Approved by: Naye Ivy M.D. on 05/10/2017 at 15:23 Assessment & Plan 72-year-old gentleman with past medical history of CVA 2, COPD, chronic diarrhea, hypertension, celiac artery and SMA stenosis with recent hospitalization for visual disturbance recurrent CVA and discharged on aspirin and Plavix came to emergency room due to chest pain of 90 minutes. # chest pain,acute,poa -Acute myocardial infarction ruled out with negative Trop -D-dimer elevated and CTA negative for PE -Limited Echo pending -Continue ASA, Plavix and Statin -Stress test negative as noted above # Recurrent CVA. Stable. -c/w ASA, Plavix and statin -patient states he still has on and off visual disturbance,may need ophthalmology evaluation outpatient # COPD. stable. -quit smoking 40 yrs ago but he states he is exposed second hand from friends # Chronic diarrhea -Stable -He has GI appointment in June # HTN. Stable -c/w home meds # History of celiac artery and SMA stenosis -GI followup as noted above Dispo: Likely home in am pending echo Negrito Borrego May 10, 2017 17:35
[2017-05-11 01:09] VITALS: BP 136/61; PULSE 74; RESP 20; O2SAT 98
[2017-05-11 05:18] VITALS: BP 120/54; PULSE 62; RESP 20; O2SAT 97
--- NOTE | 2017-05-11 05:48 | NUR ---
Uneventful night: Pt denied chest pain/pressure through the night. Awaiting the ordered ECHO today, stating hoping to discharge home after test. Was able to sleep for a few hours through the night.
[2017-05-11 07:46] VITALS: PULSE 77; RESP 20; O2SAT 99
[2017-05-11 09:44] VITALS: BP 118/62; PULSE 85; RESP 20; O2SAT 98
[2017-05-11 11:03] VITALS: PULSE 89
--- NOTE | 2017-05-11 11:59 | DRSVH ---
[facility] [address] [place] [address] Echocardiogram Report Name: BILL NGUYEN RStudy Date: 05/11/2017 Height: 66 in Hospital Exam Location: [facility] Weight: 110 lb Gender: Male BSA: 1.6 m2 : 1945 Age: 72 yrs BP: 120/54 mmHg Reason For Study: Chest pain, Limited for LV Function Ordering Physician: Performed By: Yumiko Martin HOSPITALIST [facility] Referring Physician: Loren Good Interpretation Summary The ejection fraction is estimated to be 55-60%. The right ventricle is normal in size and function. There is trace mitral regurgitation. There is mild mitral annular calcification. There is discrete nodular thickening of the non- coronary cusp. There is mild tricuspid regurgitation. Compared to the prior echo report on 03/2017, there is no significant change. Procedure: A two-dimensional transthoracic echocardiogram with color flow and Doppler was performed in limited views only. The study quality was technically adequate. Comparison is made with the echocardiogram of 03/30/2017. Low suboptimal parasternal short axis windows. Left Ventricle: The left ventricle is normal in size. Left ventricular wall thickness is normal. Proximal septal thickening is noted. There is no echo evidence for significant left ventricular outflow tract obstruction. The ejection fraction is estimated to be 55-60%. Left ventricular wall motion is normal. Right Ventricle: The right ventricle is normal in size and function. TAPSE measures at 25mm. Atria: The left atrium grossly appears normal in size. Mitral Valve: The mitral valve leaflets appear mildly thickened, but open well. There is mild mitral annular calcification. There is trace mitral regurgitation. Aortic Valve: There is discrete nodular thickening of the non- coronary cusp. Noted in prior exam. The aortic valve is trileaflet. There is no hemodynamically significant valvular aortic stenosis. No aortic regurgitation is present. Tricuspid Valve: The tricuspid valve is normal in structure and function. There is mild tricuspid regurgitation. MMode/2D Measurements & Calculations LVIDd: 3.5 cm LVAd ap2 LVIDs: 2.1 cm LVAd ap4: 23.3 cm EF(MOD-bp) FS: 40.3 % LVAs ap4: 13.7 cm : 25.1 cm : 61.7 % IVSd: 1.00 cm LVLs ap4: 6.3 cm LVLd ap2 LVPWd: 1.0 cm EDV(MOD-sp2) EDV(sp2-el) LVAs ap2 : 14.0 cm LVLs ap2 ESV(MOD-sp2) ESV(sp2-el) EF(MOD-sp2) LV johnson. diameter/BSA LV sys. diameter/BSA (cm/m^2): 2.2 (cm/m^2): 1.3 Doppler Measurements & Calculations TR max paramjit: 215.3 cm/sec TR max P.5 mmHg Electronically signed by: Tereso Edmonds on Reading Physician:05/11/2017 11:58 AM
[2017-05-11 13:07] VITALS: BP 114/47; PULSE 76; RESP 20; O2SAT 99
--- NOTE | 2017-05-11 14:42 | NUR ---
Discharge Patient departed unit, via wheelchair, accompanied by staff and sister. Patient alert and oriented at time of discharge. Patient reporting no chest pain and a reduction in anxiety at time of discharge. Patient reporting intermittent shortness of breath, "I have been told I do not use my lower lungs when I breath and that makes me sometimes feel short of breath". Patient reporting that this feeling of shortness of breath is close to his baseline-"I may be noticing it more because of anxiety". Discharge instructions/medications reviewed with patient prior to discharge. All questions addressed. Patient belongings and discharge instructions in hand. No prescriptions written.
--- NOTE | 2017-05-11 14:49 | PCM.DIMED ---
Discharge Instructions Date of Service May 11, 2017 Dates of Hospitalization May 09, 2017 at 16:28 Discharge Diagnosis Discharge Diagnosis # Acute chest pain. Present on admission. -Unclear etiology but acute myocardial infarction ruled out with negative enzymes and negative cardiac workup. # Elevated D-dimer present on admission but pulmonary embolism ruled out with negative CTA of chest. # History of recurrent stroke. Stable. # COPD. stable. # Chronic diarrhea. Stable # History of hypertension. 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 Medication Instructions Additional med instructions Resume your home medications as before. Diet Discharge Diet: Low fat, Low Sodium, Heart Healthy Activity Discharge Activity: No restrictions Call your provider Call your provider for: Fever or Chills, Shortness of breath, Bleeding, Chest pain, Weakness (unilateral) Patient Instructions Patient Instructions Seek immediate medical attention if any new or worsening signs or symptoms occur. Follow-up plan 1. Followup with primary care provider in 7-10 days 2. Followup with your other appointments as previously scheduled. Follow-up Provider: Loren Good MD, Masoud May 11, 2017 14:49
--- NOTE | 2017-05-11 15:05 | NUR ---
Social Work-discharge: Data:EMR Reviewed. Pt is on day 2 of hospitalization for chest pain per H&P. Pt is medically stable for discharge. Pt has been up independent in his room. Pt confirms his sister will provide transport home today. No discharge needs identified. All updated and agreeable to plan. Assessment:pt who is independent at baseline. Plan:Pt to discharge home today via POV. No discharge needs identified. All updated and agreeable to plan. NAYELY Hoff
--- NOTE | 2017-05-11 16:33 | NUR ---
spiritual care: pt request conversational visit. pt expressed apprehensiveness about discharging as he continues to feel medical dependency. expressed understanding at medical reassurances, however, he explored his mixed feelings as he feels isolated and forlorn at his long time motel housing. Pleasant, requested prayer.
--- NOTE | 2017-05-11 19:30 | PCM.DC.MED ---
Discharge Summary Date of Service May 11, 2017 Dates of Hospitalization Date of Hospital Admission May 09, 2017 at 16:28 Date of Discharge: May 11, 2017 Providers: Admitting Physician: Negrito Borrego Primary Care Physician: Loren Good MD Attending Physician: Negrito Borrego Diagnosis at Time of Discharge Diagnosis at Time of Discharge # Acute chest pain. Present on admission. -Unclear etiology but acute myocardial infarction ruled out with negative enzymes and negative cardiac workup. # Elevated D-dimer present on admission but pulmonary embolism ruled out with negative CTA of chest. # History of recurrent stroke. Stable. # COPD. stable. # Chronic diarrhea. Stable # History of hypertension. 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 Procedures XRay, CTs & MRIs PROCEDURE: CT ANGIO CHEST PULMONARY EMBOLISM ([id number]) IMPRESSION: 1. No evidence for acute central pulmonary embolism. 2. Stable 5 mm left lower lobe lung nodule since 05/13/2016. Please see followup recommendation. Dictated by: Guru Ames M.D. on 05/09/2017 at 18:07 Cardiac Echo Impression Date of Service: 05/11/17 670 Echocardiogram Report Interpretation Summary The ejection fraction is estimated to be 55-60%. The right ventricle is normal in size and function. There is trace mitral regurgitation. There is mild mitral annular calcification. There is discrete nodular thickening of the non- coronary cusp. There is mild tricuspid regurgitation. Compared to the prior echo report on 03/2017, there is no significant change. Electronically signed by: Tereso Edmonds on Reading Physician:05/11/2017 11:58 AM Other Diagnostics Date of Service: 05/10/17 2401 PROCEDURE: 1 DAY PHARMACOLOGICAL STRESS TEST Rest and pharmacological stress myocardial perfusion SPECT with gated imaging and ejection fraction IMPRESSION: 1. No stress perfusion changes to indicate ischemia. 2. It is noted the patient complained of chest pain during examination. However , no EKG changes of ischemia. 3. Ejection fraction 87%. Dictated by: Naye Ivy M.D. on 05/10/2017 at 15:19 Approved by: Naye Ivy M.D. on 05/10/2017 at 15:23 Brief History As noted in H&P by Dr. Rodriguez: 72-year-old gentleman with past medical history of CVA 2, COPD, chronic diarrhea, hypertension, celiac artery and SMA stenosis with recent hospitalization for visual disturbance recurrent CVA and discharged on aspirin and Plavix came to emergency room due to chest pain of 90 minutes. He describes left substernal dull aching chest pain 8/10, continuos but pain level goes down intermittently. Pain started at rest. No diaphoresis. Has mild dyspnea with pain. He had stress test done a year ago and reportedly normal.not available in [facility] ED course: unremarkable vitals and exam,chest pain somehow improved with nitro but not resolved EKG NSR,trop negative x2,d-dimer elevated and CTA negative for PE admission requested for workup of chest pain Hospital Course # chest pain,acute,poa -Acute myocardial infarction ruled out with negative Trop -D-dimer elevated and CTA negative for PE -Limited Echo without acute change (as noted above) -Continue ASA, Plavix and Statin -Stress test negative as noted above # Recurrent CVA. Stable. -c/w ASA, Plavix and statin -patient states he still has on and off visual disturbance,may need ophthalmology evaluation outpatient # COPD. stable. -quit smoking 40 yrs ago but he states he is exposed second hand from friends # Chronic diarrhea -Stable -He has GI appointment in June # HTN. Stable -c/w home meds # History of celiac artery and SMA stenosis -GI followup as noted above Exam Vital Signs (Last) Date Time Temp Pulse Resp B/P Pulse Ox O2 Delivery O2 Flow Rate FiO2 05/11/17 13:07 36.9 76 20 114/47 99 Room Air Exam General: Alert, Cooperative, No Acute Distress Head: Normal Eyes: Scleral Anicteric Nose: Mucous Membr Moist/[place] Mouth: Mucous Membr Moist/[place] Neck: Supple Chest & Lungs: Chest Wall Normal, Clear to auscultation bilat Cardiovascular: Regular Rate/Rhythm Abdomen: Non-tender, Non-distended, Normoactive bowel tones, Soft Extremities: No cyanosis/clubbing/edema bilat Neurological: Grossly Neurologically Intact, Normal Speech Test 05/09/17 13:33 05/09/17 15:17 05/10/17 06:24 05/10/17 07:35 D-Dimer 0.93mg/L FEU (<0.50) Hold Iverson Top Tube Received (Received) Troponin T < 0.010ug/L (0.0-0.011) White Blood Count 9.6th/mm3 (3.8-10.1) Red Blood Count 3.89mil/mm3 (4.40-5.80) Hemoglobin 12.8g/dL (13.8-17.2) Hematocrit 37.8% (41.0-50.0) Mean Corpuscular Volume 97.2fL (81-100) Mean Corpuscular Hemoglobin 32.9pg (27.0-35.0) Mean Corpuscular Hemoglobin Concent 33.9% (32.0-37.0) Red Cell Distribution Width 13.0% (12.3-15.4) Platelet Count 278bil/L (150-400) Neutrophils (%) (Auto) 60.6% (40-74) Lymphocytes (%) (Auto) 14.9% (14-46) Monocytes (%) (Auto) 10.6% (4-12) Eosinophils (%) (Auto) 12.7% (0-5) Basophils (%) (Auto) 1.1% (0-3) Sodium Level 132mEq/L (134-144) Potassium Level 4.9mEq/L (3.5-5.2) Chloride Level 95mEq/L (97-108) Carbon Dioxide Level 26mmol/L (18-29) Blood Urea Nitrogen 15mg/dL (8-27) Creatinine 0.83mg/dL (0.76-1.27) Estimat Glomerular Filtration Rate 97mL/min (>59) Glucose Level 99mg/dL (60-99) Calcium Level 8.9mg/dL (8.5-10.1) Magnesium Level 2.1mg/dL (1.6-2.6) Total Bilirubin 0.5mg/dL (0.0-1.2) Aspartate Amino Transf (AST/SGOT) 21U/L (0-50) Alanine Aminotransferase (ALT/SGPT) 17U/L (0-44) Alkaline Phosphatase 85U/L (25-160) Total Protein 6.3g/dL (6.4-8.4) Albumin 3.7g/dL (3.4-5.0) Urine Color Straw (YELLOW) Urine Appearance Clear (CLEAR,HAZY) Urine pH 6.0 (5.0-8.0) Urine Specific [place] 1.005 (1.003-1.035) Urine Protein Negativemg/dL (NEG,TRACE) Urine Glucose (UA) Negativemg/dL (NEGATIVE) Urine Ketones Negativemg/dL (NEGATIVE) Urine Occult Blood Negative (NEGATIVE) Urine Nitrite Negative (NEGATIVE) Urine Bilirubin Negative (NEGATIVE) Urine Urobilinogen Normalmg/dL (NORMAL) Urine Leukocyte Esterase Negative (NEGATIVE) Urine RBC 0-2/hpf (0-2) Urine WBC 0-5/hpf (0-5) Urine Epithelial Cells None/hpf (NONE-MOD) Urine Crystals None seen (NONE SEEN) Urine Bacteria None/hpf (NONE-FEW) Urine Hyaline Casts None/lpf (NONE) Urine Granular Casts None seen (NONE SEEN) Urine Waxy Casts None seen (NONE SEEN) Urine Red Blood Cell Casts None seen (NONE SEEN) Urine White Blood Cell Casts None seen (NONE SEEN) Urine Mucus None seen (None Seen) Urine Trichomonas None seen (NONE SEEN) Urine Yeast None (NONE SEEN) Urinalysis Comment None Urine Culture Reflexed Not indicated Discharge Medications Discharge Medications Aspirin Chew (Aspirin Chew) 81 Mg Chew 81 MG PO DAILY Prescribed by: LAURIE BALBUENA MD Atorvastatin Calcium (Atorvastatin Calcium) 40 Mg Tablet 80 MG PO HS Prescribed by: LAURIE BALBUENA MD Cholecalciferol (Vitamin D3) (Vitamin D) 5,000 Unit Capsule 5,000 UNIT PO QAM ( Reported) Clopidogrel (Clopidogrel) 75 Mg Tablet 75 MG PO DAILY Prescribed by: LAURIE BALBUENA MD Fluoxetine (Prozac) 10 Mg Capsule 10 MG PO DAILY Prescribed by: LAURIE BALBUENA MD Lisinopril (Lisinopril) 10 Mg Tablet 10 MG PO BID Prescribed by: LAURIE BALBUENA MD Multivitamin (Multivitamins) 1 Each Capsule 1 EACH PO DAILY (Reported) As needed Acetaminophen (Acetaminophen) 500 Mg Tablet 500 MG PO BID PRN PRN For Headache ( Reported) Albuterol HFA (Proair HFA) 8.5 Gm Hfa.aer.ad 2 PUFFS INHALATION Q4H PRN PRN For Shortness of Breath (Reported) Docusate Sodium (Colace) 100 Mg Capsule 100 MG PO BID PRN PRN For Constipation Prescribed by: HONORIO EVERETT, DO Additional med instructions Resume your home medications as before. Followup Plan Disposition: Home Follow-up plan 1. Followup with primary care provider in 7-10 days 2. Followup with your other appointments as previously scheduled. Discharge Diet: Low fat, Low Sodium, Heart Healthy Discharge Activity: No restrictions Patient Instructions Seek immediate medical attention if any new or worsening signs or symptoms occur. Follow-up Provider: Loren Good MD Time spent 30 min copies to: Loren Good MD, Masoud May 11, 2017 19:30
== END 2017-05-11 16:20 | disposition home or self-care (01) ==
LOC: SED 13:17 → MPC 16:28
PROVIDERS: ADMIT Internal Medicine; ATTEND Internal Medicine
DX: R07.9 Chest pain, unspecified (principal); R79.89 Other specified abnormal findings of blood chemistry; J44.9 Chronic obstructive pulmonary disease, unspecified; R19.7 Diarrhea, unspecified; I10 Essential (primary) hypertension; Z86.73 Personal history of transient ischemic attack (TIA), and cerebral infarction without residual deficits; I77.4 Celiac artery compression syndrome; E78.5 Hyperlipidemia, unspecified; M54.5 Low back pain; N40.0 Benign prostatic hyperplasia without lower urinary tract symptoms; F41.8 Other specified anxiety disorders; Z87.891 Personal history of nicotine dependence; Z79.01 Long term (current) use of anticoagulants; Z79.51 Long term (current) use of inhaled steroids; Z79.82 Long term (current) use of aspirin
CPT/HCPCS: 36415; 71010; 71275; 78452; 80053; 81000; 83735; 84484; 85025; 85378; 93005; 93017; 94640; 94664; 94799; 96374; 99285; A9502; C8924; G0378; J0280; J1170; J1650; J2785; J7620; Q9967

== ENCOUNTER 2017-05-25 14:13 | Emergency (ER) | payer MEDICARE, MEDICAID ==
[~2017-05-25] VITALS: Ht 167.6 cm; Wt 50.0 kg
[~2017-05-25 14:13] MED LIST changes: -TAMS0.4C98 PO
[2017-05-25 14:22] VITALS: BP 146/49; PULSE 85; RESP 16; O2SAT 100
--- NOTE | 2017-05-25 14:26 | ED.REPORT ---
HPI-Abd Pain F 40 and Over Date of Service May 25, 2017 ED Provider: Jonny Brandt MD Nursing Notes Stated Complaint: CHEST PAIN, SOB, FEEL LIKE PASSING OUT Chief Complaint: Chest Pain Allergies: Coded Allergies: tamsulosin (Verified Adverse Reaction, Intermediate, HYPOTENSION, 05/09/17) Scheduled Aspirin Chew (Aspirin Chew) 81 Mg Chew 81 MG PO DAILY Atorvastatin Calcium (Atorvastatin Calcium) 80 Mg Tablet 80 MG PO DAILY Cholecalciferol (Vitamin D3) (Vitamin D) 5,000 Unit Capsule 5,000 UNIT PO QAM Clopidogrel (Clopidogrel) 75 Mg Tablet 75 MG PO DAILY Doxazosin Mesylate (Doxazosin Mesylate) 1 Mg Tablet 2 MG PO DAILY Finasteride (Finasteride) 5 Mg Tablet 5 MG PO DAILY Fluoxetine (Prozac) 10 Mg Capsule 10 MG PO DAILY Lisinopril (Lisinopril) 10 Mg Tablet 10 MG PO BID Multivitamin (Multivitamins) 1 Each Capsule 1 EACH PO DAILY Scheduled PRN Acetaminophen (Acetaminophen) 500 Mg Tablet 500 MG PO BID PRN PRN For Headache Albuterol HFA (Proair HFA) 8.5 Gm Hfa.aer.ad 2 PUFFS INHALATION Q4H PRN PRN For Shortness of Breath Docusate Sodium (Colace) 100 Mg Capsule 100 MG PO BID PRN PRN For Constipation General Time Seen by MD: 14:23 Past Medical History Past Medical History Notes: Cardiology: [facility] PCP: Dr. 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, but without clinical findings of SMA syndrome Past Surgical History Colonoscopy Endoscopy Hand surgery Thumb amputation Reports: Cataract surgery Family History Reports: Coronary artery disease Smoking History Former Smoker Social History Alcohol Use: Denies alcohol use Drug Use: Denies drug use Other Social History: Lives alone, Local resident Ambulatory Status Independent Physical Exam Vital Signs Vital Signs (First) Date Time Temp Pulse Resp B/P Pulse Ox O2 Delivery O2 Flow Rate FiO2 05/25/17 14:22 36.7 85 16 146/49 100 Room Air Interpretation & Diagnostics Lab Results Interpretation Result Diagram: 05/25/17 1425 Test 05/25/17 14:25 White Blood Count 8.1th/mm3 (3.8-10.1) Red Blood Count 3.83mil/mm3 (4.40-5.80) Hemoglobin 12.4g/dL (13.8-17.2) Hematocrit 38.0% (41.0-50.0) Mean Corpuscular Volume 99.2fL (81-100) Mean Corpuscular Hemoglobin 32.4pg (27.0-35.0) Mean Corpuscular Hemoglobin Concent 32.6% (32.0-37.0) Red Cell Distribution Width 13.5% (12.3-15.4) Platelet Count 285bil/L (150-400) Neutrophils (%) (Auto) 67.0% (40-74) Lymphocytes (%) (Auto) 15.8% (14-46) Monocytes (%) (Auto) 13.0% (4-12) Eosinophils (%) (Auto) 3.6% (0-5) Basophils (%) (Auto) 0.5% (0-3) Hold Blue Top Tube Received (Received) Hold Iverson Top Tube Received (Received) Discharge & Departure Referrals: Loren Good MD (PCP) Jonny Brandt MD May 25, 2017 14:26 Marta Dugan May 25, 2017 14:58
[2017-05-25] MEDS ORDERED: DOXA1TAB2 PO (14:38)
[2017-05-25] MEDS ORDERED: FINA5TAB9 PO (14:38)
[2017-05-25] MEDS ORDERED: ATOR80TA77 PO (14:38)
[2017-05-25 14:45] LABS: BASOPHILS % (AUTO) 0.5 % (0-3); EOSINOPHILS % (AUTO) 3.6 % (0-5); Mean Corpuscular Hemoglobin 32.4 pg (27.0-35.0); Mean Corpuscular Volume 99.2 fL (81-100); Platelet Count 285 bil/L (150-400)
--- NOTE | 2017-05-25 14:59 | ED.REPORT ---
HPI-General Illness Date of Service May 25, 2017 ED Provider: Jonny Brandt MD The patient is a 72 year old male with history of hypertension, hyperlipidemia, COPD, CVA x2 on ASA and Plavix, vascular disease, anxiety, and chronic lower back pain, who presents to the emergency department complaining of chest pain that began suddenly around 1300 today while he was at rest. He describes the pain as "dull." He noticed intermittent numbness in his face as well. He also experienced shortness of breath and lightheadedness. The patient did not fully lose consciousness. He is still having pain but it has improved. He has had similar symptoms in the past and was seen by a inside sales director about 1 year ago. He had a stress test a few weeks ago with no acute findings in the setting of similar symptoms. Nursing Notes Stated Complaint: CHEST PAIN, SOB, FEEL LIKE PASSING OUT Chief Complaint: Chest Pain Nursing Notes Reviewed: Yes Allergies: Coded Allergies: tamsulosin (Verified Adverse Reaction, Intermediate, HYPOTENSION, 05/09/17) Scheduled Aspirin Chew (Aspirin Chew) 81 Mg Chew 81 MG PO DAILY Atorvastatin Calcium (Atorvastatin Calcium) 80 Mg Tablet 80 MG PO DAILY Cholecalciferol (Vitamin D3) (Vitamin D) 5,000 Unit Capsule 5,000 UNIT PO QAM Clopidogrel (Clopidogrel) 75 Mg Tablet 75 MG PO DAILY Doxazosin Mesylate (Doxazosin Mesylate) 1 Mg Tablet 2 MG PO DAILY Finasteride (Finasteride) 5 Mg Tablet 5 MG PO DAILY Fluoxetine (Prozac) 10 Mg Capsule 10 MG PO DAILY Lisinopril (Lisinopril) 10 Mg Tablet 10 MG PO BID Multivitamin (Multivitamins) 1 Each Capsule 1 EACH PO DAILY Scheduled PRN Acetaminophen (Acetaminophen) 500 Mg Tablet 500 MG PO BID PRN PRN For Headache Albuterol HFA (Proair HFA) 8.5 Gm Hfa.aer.ad 2 PUFFS INHALATION Q4H PRN PRN For Shortness of Breath Docusate Sodium (Colace) 100 Mg Capsule 100 MG PO BID PRN PRN For Constipation General Time Seen by MD: 14:23 Chief Complaint Chest pain Hx Obtained From: Patient Arrived By: Walk-in Sudden in Onset?: Yes Onset Occurred: 1 - 4 hours ago Symptom Duration: Since onset Location: : Chest Quality: Dull Radiation: : Does not radiate Severity: Current: Mild Severity: Maximum: Severe Recent Healthcare: No recent hospitalization, Recent doctor visit Similar Sx Previous: Yes Past Medical History Past Medical History Notes: Cardiology: [facility] PCP: Dr. 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 abdomen and pelvis, but without clinical findings of SMA syndrome Past Surgical History Colonoscopy Endoscopy Hand surgery Thumb amputation Reports: Cataract surgery Family History Reports: Coronary artery disease Smoking History Former Smoker Social History Alcohol Use: Denies alcohol use Drug Use: Denies drug use Other Social History: Lives alone, Local resident Ambulatory Status Independent Review of Systems Full Review of Systems Respiratory: Reports: Shortness of breath Cardiovascular: Reports: Chest pain Neurologic: Reports: Numbness, Syncope (near) Complete sys rev & neg: except as marked. Physical Exam Vital Signs Vital Signs Date Time Temp Pulse Resp B/P Pulse Ox O2 Delivery O2 Flow Rate FiO2 05/25/17 18:16 72 18 131/75 97 Room Air 05/25/17 17:46 72 18 136/52 97 Room Air 05/25/17 16:15 73 18 144/71 96 Room Air 05/25/17 14:22 36.7 85 16 146/49 100 Room Air Initial VS: Reviewed Head / Eyes: Atraumatic, Normocephalic, PERRL ENT: Mucous membranes moist, Conjunctiva normal, No scleral icterus Neck: Supple, Non-tender, Full range of motion Lymphatic: No lymphadenopathy Extremities: Vascular intact, Neuro intact Skin: Warm, Dry, No cyanosis Psychiatric: Mood/affect normal, Behavior normal, Normal thought content General/Constitutional: Awake, Alert Respiratory / Chest: Atraumatic, Breath sounds NL, Breath sounds = bilat, No respiratory distress, No rales, No rhonchi, No wheezing Cardiovascular: Heart rate NL, Regular rhythm, Heart sounds NL, No gallop, No murmurs, No rubs, Cap refill not delayed, Peripheral circulation NL Abdomen: Soft, No guarding, No rebound, BS normoactive, No distention, No hernia, No palpable mass, No pulsatile mass Mild tenderness which he states is baseline. Neurologic: Oriented X3, Speech NL, No motor deficits, No sensory deficits, CN II - XII intact, Cerebellar NL, Memory NL No lateralizing neurologic findings. Interpretation & Diagnostics Lab Results Interpretation Result Diagram: 05/25/17 1425 05/25/17 1425 Test 05/25/17 14:25 05/25/17 16:19 05/25/17 17:44 White Blood Count 8.1th/mm3 (3.8-10.1) Red Blood Count 3.83mil/mm3 (4.40-5.80) Hemoglobin 12.4g/dL (13.8-17.2) Hematocrit 38.0% (41.0-50.0) Mean Corpuscular Volume 99.2fL (81-100) Mean Corpuscular Hemoglobin 32.4pg (27.0-35.0) Mean Corpuscular Hemoglobin Concent 32.6% (32.0-37.0) Red Cell Distribution Width 13.5% (12.3-15.4) Platelet Count 285bil/L (150-400) Neutrophils (%) (Auto) 67.0% (40-74) Lymphocytes (%) (Auto) 15.8% (14-46) Monocytes (%) (Auto) 13.0% (4-12) Eosinophils (%) (Auto) 3.6% (0-5) Basophils (%) (Auto) 0.5% (0-3) Hold Blue Top Tube Received (Received) Sodium Level 127mEq/L (134-144) Potassium Level 4.1mEq/L (3.5-5.2) Chloride Level 89mEq/L (97-108) Carbon Dioxide Level 23mmol/L (18-29) Blood Urea Nitrogen 27mg/dL (8-27) Creatinine 0.93mg/dL (0.76-1.27) Estimat Glomerular Filtration Rate 85mL/min (>59) Glucose Level 181mg/dL (60-99) Calcium Level 8.8mg/dL (8.5-10.1) Magnesium Level 2.0mg/dL (1.6-2.6) Total Bilirubin 0.4mg/dL (0.0-1.2) Aspartate Amino Transf (AST/SGOT) 25U/L (0-50) Alanine Aminotransferase (ALT/SGPT) 20U/L (0-44) Alkaline Phosphatase 78U/L (25-160) Total Protein 6.6g/dL (6.4-8.4) Albumin 3.9g/dL (3.4-5.0) Hold Iverson Top Tube Received (Received) Hold Urine Received (Received) Troponin T < 0.010ug/L (0.0-0.011) ECG Interpretation ECG Interpretation: Sinus rhythm with a rate of 81 bpm Normal axis Normal intervals Anteroseptal Q waves are present No acute ST segment elevations No acute T wave abnormalities When compared to prior taken on 05/09/17 there are no acute changes Time: 14:30 Interpreted by: ED physician X-Ray Chest Interpretation Chest Xray Interpretation: IMPRESSION: No acute cardiopulmonary disease. Dictated by: Reggie Li M.D. on 05/25/2017 at 14:58 Interpretation / Wet Read by: Interpret - Radiologist Re-Eval/Medical Decision Med Decision/Clinical Course The patient is a 72 year old male with history of hypertension, hyperlipidemia, COPD, CVA x2 on ASA and Plavix, vascular disease, anxiety, and chronic lower back pain, who presents to the emergency department complaining of chest pain that began suddenly around 1300 today while he was at rest. He describes the pain as "dull." He noticed intermittent numbness in his face as well. He also experienced shortness of breath and lightheadedness. The patient did not fully lose consciousness. He is still having pain but it has improved. He has had similar symptoms in the past and was seen by a inside sales director about 1 year ago. He had a stress test a few weeks ago with no acute findings in the setting of similar symptoms. Here in the emergency department the patient is afebrile, hemodynamically stable and in no apparent distress. 324 mg of aspirin was given. EKG was obtained and interpreted by myself as documented above. LABS: CBC unremarkable, Na 127, Cl 89, otherwise CMP is unremarkable, troponin negative. Chest x-ray was obtained and demonstrated no evidence of acute cardiopulmonary process. I reviewed the patient's recent admission with extensive workup including reassuring stress test, negative CT angiogram of the chest and negative serial troponin Here in emergency department the patient reported complete resolution of his chest discomfort. Serial troponins were negative. Presentation and risk factors not suggestive of pulmonary embolism and recent negative PE workup in the setting of identical symptoms is reassuring. Patient does have risk factors for etiologies of chest pain however he just had a stress test that was quite reassuring. In the setting of serial troponins here in the emergency department acute coronary syndrome seems unlikely. EKG is reassuring. Patient was discussed with Dr. Mckeon (cardiology) and was felt to be appropriate for discharge home. Patient will follow up with cardiology on an outpatient basis in the next couple of days. He is advised to return immediately should he develop recurrent chest pain. Patient does not desire admission and feels comfortable with this plan. Prior to discharge follow-up and return precautions were reviewed in detail with the patient who verbalized understanding and agreement with the plan. The patient was discharged in stable condition. Source of Hx: Old records Summary of Info: Echocardiogram Report Interpretation Summary The ejection fraction is estimated to be 55-60%. The right ventricle is normal in size and function. There is trace mitral regurgitation. There is mild mitral annular calcification. There is discrete nodular thickening of the non- coronary cusp. There is mild tricuspid regurgitation. Compared to the prior echo report on 03/2017, there is no significant change. Electronically signed by: Tereso Edmonds on Reading Physician:05/11/2017 11:58 AM PROCEDURE: 1 DAY PHARMACOLOGICAL STRESS TEST IMPRESSION: 1. No stress perfusion changes to indicate ischemia. 2. It is noted the patient complained of chest pain during examination. However, no EKG changes of ischemia. 3. Ejection fraction 87%. Dictated by: Naye Ivy M.D. on 05/10/2017 at 15:19 Consultation : Referral / Consult Name: Ashlie Henry MD Consulted With: Cardiology Requested Call at: 15:50 Call Returned at: 15:55 Net Front End Developer: Will see patient, Agrees with eval, Agrees with plan, Accepts admit Note: Given that the patient has had such an extensive workup, he would recommend discharging the patient. Counseled Regarding: Diagnosis, Lab results, Need for follow-up, When/why to return to ED Discharge & Departure Primary Impression: Chest pain Chest pain type: unspecified Qualified Code: R07.9 - Chest pain, unspecified Additional Impression: History of coronary artery disease Disposition: Home Discharge Condition All VS Reviewed: Yes Condition: Stable Patient Instructions: Chest Pain (ED) Additional Instructions: Thank you for seeking care in the emergency department today. Your workup today is reassuring. There is no evidence of anything acutely dangerous at this time. Followup with your primary physician in the next week for re-evaluation. Return to the emergency department for increased pain, increased work of breathing, palpitations, lightheadedness, syncope, or any other new or concerning symptoms. Referrals: Loren Good MD (PCP) Scribe Attestation Portions of this note were transcribed by Marta Dugan. I, Dr. Brandt personally performed the history, physical exam and medical decision-making; I reviewed and confirmed the accuracy of the information in the transcribed note. Signed by: Chiki Butts, 05/25/2017 at 1800. copies to: Loren Good MD, Beck O MD May 25, 2017 14:59 Marta Dugan May 25, 2017 15:06
[2017-05-25 15:25] LABS: TROPONIN T < 0.010 ug/L (0.0-0.011)
--- NOTE | 2017-05-25 16:00 | DRSVH ---
PROCEDURE: X-RAY CHEST ONE VIEW, PORTABLE ([id number]) INDICATIONS: 72-year-old male with chest pain TECHNIQUE: One view of the chest was acquired. COMPARISON: [facility], CR, XR CHEST 1VW (PORTABLE), 05/09/2017, 13:39. [facility], CR, XR CHEST 1VW (PORTABLE), 04/19/2017, 22:03. [facility], CR, XR CHEST 2VW, 11/2016, 10:48. FINDINGS: Surgical changes and devices: None. Lungs and pleura: No pleural effusions or pneumothorax. Lungs are clear. Mediastinum: Mediastinal contours appear normal. Heart size is normal. Bones and chest wall: No suspicious bony lesions. Overlying soft tissues appear unremarkable. IMPRESSION: No acute cardiopulmonary disease. Dictated by: Reggie Li M.D. on 05/25/2017 at 14:58 Approved by: Reggie Li M.D. on 05/25/2017 at 14:59
[2017-05-25 16:15] VITALS: BP 144/71; PULSE 73; RESP 18; O2SAT 96
[2017-05-25 17:46] VITALS: BP 136/52; PULSE 72; RESP 18; O2SAT 97
[2017-05-25 18:16] VITALS: BP 131/75; PULSE 72; RESP 18; O2SAT 97
== END 2017-05-25 18:20 | disposition home or self-care (01) ==
LOC: SED 14:13
DX: R07.9 Chest pain, unspecified (principal); I10 Essential (primary) hypertension; E78.5 Hyperlipidemia, unspecified; Z86.73 Personal history of transient ischemic attack (TIA), and cerebral infarction without residual deficits; Z87.891 Personal history of nicotine dependence; Z79.82 Long term (current) use of aspirin; Z79.899 Other long term (current) drug therapy; Z88.8 Allergy status to other drugs, medicaments and biological substances

== ENCOUNTER 2017-08-03 16:19 | Observation (INO) | payer MEDICARE, MEDICAID ==
[~2017-08-03] VITALS: Ht 167.6 cm; Wt 48.6 kg
--- NOTE | 2017-08-03 16:14 | ED.REPORT ---
HPI-Neurologic Deficit Date of Service Aug 03, 2017 ED Provider: Sachin Armstrong MD A 72 year old male on aspirin and Plavix with a history of hypertension, hyperlipidemia, COPD, CVA x2, anxiety, pneumonia and hepatitis C is brought to the ED via EMS due to a possible stroke. The pt noticed increased difficulty swallowing, difficulty walking and lightheadedness three to four days ago, and these symptom have not improved since onset. He also reports a frontal headache and full body tremors. The pt was seen by his neurologist today, who referred him to the ED for further evaluation of a possible stroke. Nursing Notes Stated Complaint: POSSIBLE CVA Nursing Notes Reviewed: Yes Allergies: Coded Allergies: tamsulosin (Verified Adverse Reaction, Intermediate, HYPOTENSION, 05/09/17) Scheduled Aspirin Chew (Aspirin Chew) 81 Mg Chew 81 MG PO DAILY Atorvastatin Calcium (Atorvastatin Calcium) 80 Mg Tablet 80 MG PO DAILY Cholecalciferol (Vitamin D3) (Vitamin D) 5,000 Unit Capsule 5,000 UNIT PO QAM Clopidogrel (Clopidogrel) 75 Mg Tablet 75 MG PO DAILY Doxazosin Mesylate (Doxazosin Mesylate) 1 Mg Tablet 2 MG PO DAILY Finasteride (Finasteride) 5 Mg Tablet 5 MG PO DAILY Fluoxetine (Prozac) 10 Mg Capsule 10 MG PO DAILY Lisinopril (Lisinopril) 10 Mg Tablet 10 MG PO BID Multivitamin (Multivitamins) 1 Each Capsule 1 EACH PO DAILY Scheduled PRN Acetaminophen (Acetaminophen) 500 Mg Tablet 500 MG PO BID PRN PRN For Headache Albuterol HFA (Proair HFA) 8.5 Gm Hfa.aer.ad 2 PUFFS INHALATION Q4H PRN PRN For Shortness of Breath Docusate Sodium (Colace) 100 Mg Capsule 100 MG PO BID PRN PRN For Constipation General Time Seen by Provider: 16:35 Chief Complaint Other (Possible stroke) Hx Obtained From: Patient, EMS Arrived By: Ambulance Sudden in Onset?: Yes Onset Occurred: 2 days ago Symptom Duration: Since onset Recent Healthcare: Recent doctor visit Similar Sx Previous: Yes Risk Factors NIH Stroke Scale Level of Consciousness: Alert and responsive (0) Ask Month & Age: Both questions right (0) Open/Close Eyes/Hand Oven Operator: Performs both tasks (0) Horizontal EO Movements: None (0) Visual Garcia: No visual loss (0) Facial Palsy: Normal symmetry (0) Right Arm Motor Drift (10s): No drift 10 sec (0) Left Arm Motor Drift (10s): No drift 10 sec (0) Right Leg Motor Drift (5s): No drift 5 sec (0) Left Leg Motor Drift (5s): No drift 5 sec (0) Limb Ataxia FNF/Heel-Moses: Ataxia in 1 limb (1) Sensation (Arms/Legs/Face): No sensory loss (0) Language Aphasia: No aphasia, normal (0) Dysarthria: No dysarthria, normal (0) Extinction/Inattention: No exctinct/inattent (0) Time NIHSS Performed: 16:35 Date NIHSS Performed: Aug 03, 2017 Past Medical History Past Medical History Notes: Cardiology: [facility] PCP: Dr. 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 abdomen and pelvis, but without clinical findings of SMA syndrome Hepatitis C Past Surgical History Colonoscopy Endoscopy Hand surgery Thumb amputation Reports: Cataract surgery Family History Reports: Coronary artery disease Smoking History Former Smoker Social History Alcohol Use: Denies alcohol use Drug Use: Denies drug use Other Social History: Good social support, Lives alone, Local resident Ambulatory Status Independent Review of Systems Review of Systems Note: difficulty swallowing difficulty walking full body tremors Respiratory: Denies: Non-productive cough, Shortness of breath Cardiovascular: Denies: Chest pain GI: Denies: Abdominal pain, Vomiting Musculoskeletal: Denies: Back pain, Neck pain Neurologic: Reports: Headache Complete sys rev & neg: except as marked. Physical Exam Initial Vital Signs Vital Signs (First) Date Time Temp Pulse Resp B/P Pulse Ox O2 Delivery O2 Flow Rate FiO2 08/03/17 16:26 36.6 87 17 148/46 100 Room Air Initial VS: Reviewed General/Constitutional: Awake, Alert Appearance / Presentation: Positive: Cachectic thin disheveled Head / Eyes: Atraumatic, Normocephalic, PERRL, EOMI Respiratory / Chest: Atraumatic, Breath sounds NL, Breath sounds = bilat, No respiratory distress Cardiovascular: Heart rate NL, Regular rhythm, Heart sounds NL Neurologic: Oriented X3, Speech NL ENT: Atraumatic, Airway patent, Mucous membranes moist Neck: Atraumatic, Supple, Full range of motion Abdomen: Atraumatic, Soft, Non-tender Back: Atraumatic, Full range of motion Upper Extremity / MS: Atraumatic, Full range of motion Lower Extremity / Pelvis / MS: Atraumatic, Full range of motion Skin: Atraumatic, Color NL, No rash, Warm, Dry Psychiatric: Affect NL, Mood NL Interpretation & Diagnostics Lab Results Interpretation Result Diagram: 08/03/17 1655 08/03/17 1655 Test 08/03/17 16:55 08/03/17 17:08 White Blood Count 7.6th/mm3 (3.8-10.1) Red Blood Count 4.12mil/mm3 (4.40-5.80) Hemoglobin 13.6g/dL (13.8-17.2) Hematocrit 40.1% (41.0-50.0) Mean Corpuscular Volume 97.3fL (81-100) Mean Corpuscular Hemoglobin 33.0pg (27.0-35.0) Mean Corpuscular Hemoglobin Concent 33.9% (32.0-37.0) Red Cell Distribution Width 12.8% (12.3-15.4) Platelet Count 206bil/L (150-400) Neutrophils (%) (Auto) 69.6% (40-74) Lymphocytes (%) (Auto) 18.1% (14-46) Monocytes (%) (Auto) 10.4% (4-12) Eosinophils (%) (Auto) 1.1% (0-5) Basophils (%) (Auto) 0.5% (0-3) Prothrombin Time 10.9sec (8.1-12.5) Prothromb Time International Ratio 1.02ratio Activated Partial Thromboplast Time 24.5sec (22.8-33.0) Sodium Level 136mEq/L (134-144) Potassium Level 4.0mEq/L (3.5-5.2) Chloride Level 97mEq/L (97-108) Carbon Dioxide Level 22mmol/L (18-29) Blood Urea Nitrogen 12mg/dL (8-27) Creatinine 0.86mg/dL (0.76-1.27) Estimat Glomerular Filtration Rate 93mL/min (>59) Glucose Level 98mg/dL (60-99) Calcium Level 9.0mg/dL (8.5-10.1) Total Bilirubin 0.8mg/dL (0.0-1.2) Aspartate Amino Transf (AST/SGOT) 34U/L (0-50) Alanine Aminotransferase (ALT/SGPT) 20U/L (0-44) Alkaline Phosphatase 91U/L (25-160) Troponin T < 0.010ug/L (0.0-0.011) Total Protein 7.0g/dL (6.4-8.4) Albumin 3.9g/dL (3.4-5.0) Hold Iverson Top Tube Received (Received) ECG Interpretation ECG Interpretation: normal sinus rhythm with a rate of 88 multiform ventricular premature complexes probable left atrial enlargement anteroseptal infarct, old Time: 17:14 Interpreted by: ED physician X-Ray Chest Interpretation Chest Xray Interpretation: IMPRESSION: No radiographic evidence of acute cardiopulmonary pathology. Dictated by: Ayo Pham M.D. on 08/03/2017 at 17:17 Approved by: Ayo Pham M.D. on 08/03/2017 at 17:19 Interpretation / Wet Read by: Interpret - Radiologist CT Head Interpretation IMPRESSION: 1. No CT evidence of acute intracranial pathology. 2. Prominent ventricles stable the previous studies likely represents ex vacuo dilatation caused by generalized cerebral atrophy. Dictated by: Ayo Pham M.D. on 08/03/2017 at 17:04 Approved by: Ayo Pham M.D. on 08/03/2017 at 17:07 Interpretation / Wet Read by: Interpret - Radiologist Re-Eval/Medical Decision Med Decision/Clinical Course Findings concerning for recurrent stroke, we'll plan to admit for stroke workup. Re-Evaluation/Progress : Time of Eval: 16:35 Patient Status: Condition improved Re-Evaluation/Progress Note: Pt informed of the diagnosis and plan for discharge during the initial interview. The pt understands and agrees with the plan. All questions are addressed at this time. Consultation : Referral / Consult Name: Tabatha Hsieh DO Consulted With: Hospitalist Call Returned at: 18:00 Mixing And Dispensing Supervisor: Agrees with eval, Agrees with plan, Accepts admit Note: Spoke with Dr. Hsieh, hospitalist, regarding pt's case. Dr. Hsieh agrees with the evaluation and agrees to admit the pt. Counseled Regarding: Diagnosis, Lab results, Need for admission Discharge & Departure Impression: Primary Impression: Difficulty swallowing Dysphagia type: unspecified Qualified Code: R13.10 - Dysphagia, unspecified Additional Impression: Dysphagia Dysphagia type: unspecified Qualified Code: R13.10 - Dysphagia, unspecified Disposition: ADMITTED TO HOSPITAL Discharge Condition All VS Reviewed: Yes Condition: Stable Referrals: Loren Good MD (PCP) Michelle Mulligan MD Scribe Attestation Portions of this note were transcribed by Marcelo Quezada. I, Dr. Armstrong personally performed the history, physical exam and medical decision-making; I reviewed and confirmed the accuracy of the information in the transcribed note. copies to: Michelle Mulligan MD; Loren Good MD, Timothy S DO Aug 03, 2017 16:13 MARCELO QUEZADA Aug 03, 2017 16:43
[~2017-08-03 16:19] MED LIST changes: -ATOR40TA69 PO; +ATOR80TA77 PO; +DOXA1TAB2 PO; +FINA5TAB9 PO
[2017-08-03 16:26] VITALS: BP 148/46; PULSE 87; RESP 17; O2SAT 100
[2017-08-03 16:59] LABS: BASOPHILS % (AUTO) 0.5 % (0-3); EOSINOPHILS % (AUTO) 1.1 % (0-5); MONOCYTES % (AUTO) 10.4 % (4-12); Mean Corpuscular Volume 97.3 fL (81-100); NEUTROPHILS % (AUTO) 69.6 % (40-74); Platelet Count 206 bil/L (150-400)
--- NOTE | 2017-08-03 17:09 | DRSVH ---
PROCEDURE: CT BRAIN WITHOUT CONTRAST ([id number]) INDICATIONS: new onset difficulty swallowing, h/o stroke TECHNIQUE: Noncontrast 4.5 mm thick angled axial sections acquired from the foramen magnum to the vertex, with c oronal reformats. COMPARISON: [facility], CT, CT BRAIN WO CON, 04/26/2017, 11:49. [facility], CT, CT BRAIN WO CON, 04/13/2017, 10:02. [facility], CT, CT BRAIN WO CON, 03/29/2017, 5:17. FINDINGS: Image quality: Excellent. CSF spaces: Basal cisterns are patent. No extra-axial fluid collections. Ventricles are prominent but stable over the previous CTs likely representing ex vacuo dilatation. Brain: Generalized cerebral and cerebellar atrophy. No midline shift. No intracranial masses or hem orrhage. Santana-white matter interface is normal. Skull and face: Calvarium and visualized facial bones are intact, without suspicious lesions. Sinuses: Visualized sinuses and mastoids are clear. Partially visualized thickening of the right max illary sinus bony wall consistent with chronic inflammation. IMPRESSION: 1. No CT evidence of acute intracranial pathology. 2. Prominent ventricles stable the previous studies likely represents ex vacuo dilatation caused by g eneralized cerebral atrophy. Dictated by: Ayo Pham M.D. on 08/03/2017 at 17:04 Approved by: Ayo Pham M.D. on 08/03/2017 at 17:07
[2017-08-03 17:16] LABS: INR 1.02 ratio
--- NOTE | 2017-08-03 17:20 | DRSVH ---
PROCEDURE: X-RAY CHEST ONE VIEW, PORTABLE ([id number]) INDICATIONS: trouble swallowing TECHNIQUE: One view of the chest was acquired. COMPARISON: [facility], CR, XR CHEST 1VW (PORTABLE), 05/25/2017, 14:38. [facility], CR, XR CHEST 1VW (PORTABLE), 05/09/2017, 13:39. [facility], CR, XR CHEST 1VW (POR TABLE), 04/19/2017, 22:03. [facility], CR, XR CHEST 1VW (PORTABLE), 01/09/2017, 18:08. FINDINGS: Surgical changes and devices: None. Lungs and pleura: No pleural effusions or pneumothorax. Lungs are clear. Hyperinflation. Mediastinum: Mediastinal contours appear normal. Heart size is normal. Bones and chest wall: No suspicious bony lesions. Overlying soft tissues appear unremarkable. IMPRESSION: No radiographic evidence of acute cardiopulmonary pathology. Dictated by: Ayo Pham M.D. on 08/03/2017 at 17:17 Approved by: Ayo Pham M.D. on 08/03/2017 at 17:19
[2017-08-03 17:26] LABS: TROPONIN T < 0.010 ug/L (0.0-0.011)
[2017-08-03 17:50] VITALS: BP 143/47; PULSE 76; RESP 13; O2SAT 98
[2017-08-03] MEDS ORDERED: Ondansetron 2 mg/mL 2 mL Inj IVPUSH PRN (18:00)
[2017-08-03] MEDS ORDERED: Alum-Mag Hydrox-Simeth 30 mL Suspension PO PRN (18:35)
[2017-08-03] MEDS ORDERED: Polyethylene Glycol (PEG) 17 Gm Powder PO PRN (18:35)
[2017-08-03] MEDS ORDERED: Labetalol 5 mg/mL 20 mL Inj IVPUSH PRN (18:35)
[2017-08-03 18:51] VITALS: BP 134/53; PULSE 80; RESP 13; O2SAT 98
[2017-08-03 19:10] VITALS: BP 135/50; PULSE 76; RESP 14; O2SAT 95
[2017-08-03 20:06] VITALS: BP 145/56; PULSE 54; RESP 18; O2SAT 98
[2017-08-03] MEDS ORDERED: MONT10TA23 PO (20:15)
[2017-08-03] MEDS ORDERED: CHOL200025 PO (20:15)
[2017-08-03] MEDS ORDERED: FLUT10.62 INH (20:15)
[2017-08-03] MEDS ORDERED: ALBU18HF INH (20:15)
[2017-08-03 21:19] VITALS: PULSE 62
[2017-08-03] MEDS ORDERED: Albuterol 2.5 mg/3 mL Inhalation Solution NEB PRN (21:21)
[2017-08-03] MEDS: D5 0.45% NaCl + KCl 20 mEq/L 1,000 ML IV SCH (21:57)
--- NOTE | 2017-08-03 23:24 | NUR ---
Admit Pt admitted on the floor. Denies chest pain, sob. No nausea or vomiting but has been having difficulty with swallowing. Swallow screen done and pt had failed the test. Currently on NPO. Noted no facial droop, or slurring of speech. Bilateral equal electroformer, and lower extremity appropriate for age. Addendum: 08/03/17 at 2355 by GOLDEN WILSON RN Unable to give HS meds due to, high risk for aspiration and dysphagia. Notified pharmacy and night hospitalist.
--- NOTE | 2017-08-03 23:26 | PCM.HPMED ---
Subjective Date of Service Aug 03, 2017 Primary Provider: Admitting Physician: Tabatha Hsieh DO Primary Care Physician: Loren Good MD Attending Physician: Tabatha Hsieh DO Admit Status: From the Emergency Department, Admit to Green Team Chief Complaint: Dysphagia History of Present Illness: 72-year-old male with history of recent acute right occipital infarct 4 mo ago at which time the MRI was also notable for "old, small, left occipital infarcts " had symptoms of visual changes by seeing spots as well as left sided paraesthesia. He now states he has some left sided weakness in UE and LE, left sided facial numbness after his prior stroke. He is a very poor historian but seems to have presented to hospital today due to new onset dysphagia. Onset was 3-4 days ago. He was able to take some soup this am but nothing else. He attempted to eat this morning but couldn't keep it down. He has chronic diarrhea, says he has seen GI for it but they scoped him (both EGD and colonoscopy) and no problems were found. He denies fever, diarrhea, or any other symptoms at this time. He has had about 40lb weight loss over the past 2 years. He says he has been compliant with his medications including taking Aspirin and Plavix though he is unable to eat. He says he did not take his medications today due to having to go to neurology appt. Dr. Wilks has seen him and sent him to the ED. Patient was supposed to receive a holter monitor from cardiology , he apparently has not and Dr. Mulligan was concerned patient may have had paroxysmal episodes of Afib. 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 Patient also has hx of vascular disease of celiac trunk. He has chronic abdominal pain. US echo from 05/01 showed EF of 55-60%, Trace MR, mild TR. Brain MRI 03/31 showed new right occipital lobe infarct. In the ED, CT Head was NAD, ventricular prominence and cerebral atrophy were noted. Lab work is essentially unremarkable. Review of Systems: Complete review of systems performed, pertinent positives and negatives per history of present illness, all other systems reviewed and are negative. Allergies Coded Allergies: tamsulosin (Verified Adverse Reaction, Intermediate, HYPOTENSION, 6/25/17) Home Medications aorvastatin, lisinopril, aspirin, plavix, fluoxetine PMH COPD CVA x2 Chronic low back pain Chronic diarrhea Environmental allergies Hypertension Reports: Hyperlipidemia celiac trunk vascular disease Anxiety Hep C Surgical History Surgical History Colonoscopy Endoscopy Hand surgery Thumb amputation Reports: Cataract surgery Family History Mother age 86 AR in her 60's and then again at 80 Maternal Aunt with Seizures Another Maternal aunt age 52 2/2 CVA Maternal grandfather age 60 2/2 AR Social History Occupation: none Hx Alcohol Use: No Hx Substance Use: No Smoking Status: Former Smoker Living Arrangement: Alone Exam Vital Signs Vital Sign - Last Date Time Temp Pulse Resp B/P Pulse Ox O2 Delivery O2 Flow Rate FiO2 08/03/17 17:50 76 13 143/47 98 Room Air 08/03/17 16:26 36.6 Exam GENERAL: Thin, cachectic appearing, alert, in no acute distress, nontoxic. HEENT: Eyes: Lids and conjunctiva. No lesions. Pupils equal, round, reactive to light and accommodation. Irises symmetrical, undilated.Ears, Nose, Mouth, and throat: External ears without lesions. Nares patent. Septum midline. Hearing is grossly intact. Lips, teeth, gums, palate without lesion. Posterior oropharynx: No erythema. No tonsillar enlargement, crypt formation or abscess. NECK: Supple and symmetric. No masses. Thyroid midline, non enlarged. No JVD. Neck is nontender. Full range of motion without pain. RESPIRATORY: Good respiratory effort. Clear to auscultation. Clear to percussion. Chest: Symmetrical rise and fall. Symmetrical expansion. No egophony or tactile fremitus. CARDIOVASCULAR: Regular rate and rhythm. grade 1+ systolic murmur, gallops, clicks, heaves or rub. Cardiac palpation within normal limits. Pulses equal at carotid and pedal pulses: No peripheral edema. GASTROINTESTINAL:Generalized mild tenderness or mass. No hepatosplenomegaly. No hernia. Bowel sounds equal times four quadrants. Abdomen is nondistended. No rebound, guarding, rigidity or ecchymosis. MUSCULOSKELETAL: Normal gait and station. No pathology to digits, positive for onchomycosis. Extremities move times four. No tenderness or effusion. Range of motion adequate.. DEcreased strength in L LE and UE SKIN: Inspection within normal limits. Well hydrated. No diaphoresis. No obvious wound. LYMPH: Cervical lymph nodes. No lymphadenopathy. NEUROLOGICAL: Cranial nerves II-XII grossly intact. DTRs symmetric 2 out of 4 bilateral lower extremity, patella and ankle. unremarkable romberg's, finger to nose, heel tos hin. Withdraws to babinski PSYCHIATRIC: Judgment and insight adequate. Alert and oriented times three. Memory and mood within normal limits. No delusions, hallucinations. Lab and Diagnostics Result Diagram: 08/03/17165408/03/171654 Assessment & Plan 72-year-old male with history of recent acute right occipital infarct less than one months ago at which time the MRI was also notable for "old, small, left occipital infarcts" had symptoms of visual changes by seeing spots as well as left sided paraesthesia. He is a very poor historian but seems to have presented to hospital today due to new onset of tingling in the right arm and possible worsening of visual symptoms (including blurry vision and seeing more spots). # Acute Dysphagia, POA -- CVA vs GERD vs Anxiety in DDX - Tele monitoring - Continue with ASA and Plavix - Continue with Statin - Permissive hypertension - Per ED neurology consulted. Will followup with further recommendations, Dr. Reed was contacted, she will see the patient. - Will tentatively order repeat brain MRI - Will hold off on ordering ECHO - PT/OT/ST - NPO diet - D5 1/2 NSS 20 meq K 70 cc/hr # Chronic COPD. Stable - Nebs/inhalers prn # Chronic Hypertension presumed stable - Hold BP meds for now - Permissive HTN while acute stroke is being ruled out - IV Labetalol prn # History of depression. Stable - Continue with home dose Fluoxetine # Abdominal pain - According to patient this is a chronic issue - Continue with supportive care for now - If persist consider further imaging Expected length of hospital stay at this time is less than 2 midnights GI Prophylaxis: Not indicated VTE Prophylaxis: Will hold off till MR stroke is cleared Resuscitation Status: CPR: Attempt Resuscitation (discussed and verified with patient) ADM: Sister Evie Saha [phone] VTE Prophylaxis Indicated: Contraindicated (stroke r/o) Resuscitation Status: CPR: Attempt Resuscitation Time spent 45 min Tabatha Hsieh DO Aug 03, 2017 18:20
[2017-08-04] VITALS (7 sets, daily range): BP systolic 112–147; BP diastolic 58–80; PULSE 54–120; RESP 17–18; O2SAT 96–99
[2017-08-04] MEDS ORDERED: Fluticasone 100 mCg Inhaler INHALATION PRN (08:30)
--- NOTE | 2017-08-04 09:26 | NUR ---
Evaluation completed. Please go to "Notes" then click on "Assessments and Notes" (bottom left corner of screen). Then select appropriate discipline tab on top of screen.
[2017-08-04] MEDS: D5 0.45% NaCl + KCl 20 mEq/L 1,000 ML IV SCH ×2 (10:38→12:21)
--- NOTE | 2017-08-04 13:52 | NUR ---
NUTRITION ASSESSMENT: ASSESS: 72 YO male admitted for difficulty swallowing and dysphagia. Pt diet has been advanced per ST recommendations with pt eating 90% of lunch. PMHx: COPD, dysphagia, CVA x 2, chronic diarrhea, HTN, anxiety, hep C, celiac trunk vascular disease. LABS: Reviewed. Alb 3.6 MEDS: Reviewed. GI: No BM reported at this time. CURRENT WT: 48.6 kg. Wt has been stable since 05/2015 per EMR review. DIET: Dysphagia Mechanical. PO 90% x 1 meals. EST. NEEDS: [id number] kcals (25-35 kcals/kg BW), 60-75 g protein (1.2-1.5 g/kg BW) NUTRITION DIAGNOSIS: 1.) Chewing / swallowing difficulties related to chronic dysphagia as evidenced by current need for mechanically altered diet texture, ST following. NUTRITION INTERVENTION: 1.) Continue to advance diet as able per ST recommendations. MONITOR / EVAL: PO intake, diet tolerance, labs, nutritional status. Follow per moderate nutritional risk guidelines.
--- NOTE | 2017-08-04 14:18 | NUR ---
Evaluation completed. Please go to "Notes" then click on "Assessments and Notes" (bottom left corner of screen). Then select appropriate discipline tab on top of screen.
--- NOTE | 2017-08-04 16:16 | DRSVH ---
[facility] [address] [place] [address] Echocardiogram Report Name: BILL NGUYEN RStudy Date: 08/04/2017 Height: 66 in Hospital Exam Location: [facility] Weight: 107 lb Gender: Male BSA: 1.5 m2 : 1945 Age: 72 yrs BP: 120/65 mmHg Reason For Study: CVA Ordering Physician: HOSPITALIST [facility] Performed By: Jessica Silva Referring Physician: Isaiah Ritchie Interpretation Summary Normal sinus rhythm. Normal LV size, wall thickness, wall motion and LV systolic function. Stage I diastolic dysfunction. Aortic sclerosis without stenosis. Otherwise no significant valvular abnormalities. Agitated saline study was not available for review, so can not definitively exclude PFO. No source of embolism identified. Compared to prior study 05/11/2017, no changes have occurred. Procedure: A two-dimensional transthoracic echocardiogram with color flow and Doppler was performed. The study quality was technically adequate. Comparison is made with the echocardiogram of 05/11/2017. A saline contrast injection was performed to assess for cardiac shunting. The patient was in normal sinus rhythm during the exam. Left Ventricle: The left ventricular cavity is small. There is normal left ventricular wall thickness. The ejection fraction is estimated to be 60-65%. There are no focal wall motion abnormalities. Right Ventricle: The right ventricle is normal in size and function. Atria: Both atria are normal in size. The interatrial septum is intact with no evidence for an atrial septal defect. Injection of contrast documented no interatrial shunt. Mitral Valve: The mitral valve leaflets appear mildly thickened, but open well. There is mild mitral annular calcification. There is trace mitral regurgitation. Aortic Valve: The aortic valve is mildly calcified. Nodular thickening of non-coronary cusp. There is no hemodynamically significant valvular aortic stenosis. No aortic regurgitation is present. Tricuspid Valve: The tricuspid valve leaflets are thin and pliable. There is trace tricuspid regurgitation. The right ventricular systolic pressure is estimated at 18 mmHg assuming a right atrial pressure of 3 mm Hg. Pulmonic Valve: The pulmonic valve is normal in structure and function. There is a trace or physiologic amount of pulmonic regurgitation. Great Vessels: The aortic root is normal size. The ascending aorta is normal in size. The IVC is of normal diameter and collapses greater than 50% with a sniff. This suggests a low right atrial pressure of 3 mm Hg. MMode/2D Measurements & Calculations LVIDd: 3.7 cm LVIDs: 2.6 cm LA A2 area: 12.9 cm FS: 29.1 % LA A4 area: 14.9 cm IVSd: 0.91 cm LA length (vol): 3.9 cm LVPWd: 0.80 cm LA vol: 41.4 ml LA vol index: 27.0 ml/m2 RA long axis: 4.0 cm LVOT diam: 2.3 cm RA area: 9.5 cm asc Aorta Diam: 3.0 cm RA vol: 19.2 ml RA : 12.5 ml/m2 LV johnson. diameter/BSA (cm/m^2): 2.4 LV sys. diameter/BSA (cm/m^2): 1.7 RVD1 (basal): 3.2 cm TAPSE: 2.9 cm Doppler Measurements & Calculations Ao V2 max: 95.0 cm/sec MV E max marco a: 83.8 cm/sec Ao max P.6 mmHg MV A max marco a: 93.3 cm/sec Ao mean P.0 mmHg LVOT Max Marco A: 72.7 cm/sec CHANELLE(I,D): 3.2 cm sev ratio: 0.79 MV E/A: 0.90 TR max marco a: 190.9 cm/sec TR max P.6 mmHg PA V2 max: 82.1 cm/sec PA mean P.5 mmHg MV dec time: 0.20 sec Ao V2 mean: 66.8 cm/sec Ao V2 VTI: 20.3 cm CHANELLE(V,D): 3.1 cm2 LV V1 max P.1 mmHg PA V2 mean: 57.2 cm/sec LV V1 VTI: 16.1 cm PA pr(Accel): 28.1 mmHg CHANELLE indexed to BSA (cm^2/m^2): 2.1 Reading Physician:04:15 PM
--- NOTE | 2017-08-04 17:00 | DRSVH ---
PROCEDURE: CT ANGIO HEAD AND NECK (P) INDICATIONS: dysphagia, r/o CVA TECHNIQUE: Pre-contrast 4.5 mm thick sections acquired from the foramen magnum to the vertex. After the adminis tration of intravenous contrast, 1 mm thick sections acquired from the aortic arch through the [place] of [place]. Post-contrast 4.5 mm thick sections then re-acquired from the foramen magnum to the vert ex. 3-dimensional qokmale-qgfasudhx-qipdkquwoh (MIP) and/or volume rendering reformats were acquired of the central intracranial vasculature and neck separately. For radiation dose reduction, the foll owing was used: automated exposure control, adjustment of mA and/or kV according to patient size. COMPARISON: None. FINDINGS: Image quality: Excellent. BRAIN: CSF spaces: Ventricles are normal in size and shape. Basal cisterns are patent. No extra-axial flu id collections. Brain: No midline shift. No intracranial bleeds or masses. Santana-white matter interface appears int act. Skull and face: Calvarium and facial bones appear intact, without suspicious lesions. Orbits appear normal. Sinuses: Sinuses and mastoids are clear. HEAD CT ANGIOGRAPHY: Anterior circulation: The left internal carotid artery is occluded, as before. There is reconstituted flow seen within the left supraclinoid internal carotid artery, as before. Right internal coronary i s patent. The flow within the paired anterior cerebral arteries is normal and symmetric. The flow wi thin the middle cerebral arteries is normal and symmetric. The anterior communicating artery is seen . 2 mm diameter saccular aneurysm protrudes anteriorly from the intercommunicating artery, as before. Posterior circulation: Visualized portions of the vertebral arteries demonstrate normal caliber, and join to form a normal appearing basilar artery. Flow within the posterior cerebral arteries is norm al and symmetric. No aneurysms are seen. NECK CT ANGIOGRAPHY: Carotid system: The great vessels demonstrate a conventional anatomy as they arise from the aortic a rch. The origins of the common carotid arteries appear patent. The common carotid arteries demonstr ate normal caliber and courses. The right carotid bifurcation is patent. The right internal carotid a rtery is patent. The left internal carotid artery is occluded at its origin. Left external carotid ar farrah is patent. Posterior circulation: The origins of the vertebral arteries both appear widely patent. The more gilmore perior extracranial portions of both vertebral arteries also demonstrate normal courses and calibers. They join to form a normal appearing basilar artery. Soft tissues: Visualized neck soft tissues demonstrate no suspicious abnormalities. Biapical pulmon carolee scarring is present. Bones: No suspicious bony lesions. Visualized cervical spine appears normally aligned. IMPRESSION: 1. No change in left internal carotid artery occlusion. 2. No evidence of acute process. 3. 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 Dictated by: Kassie Ferrer M.D. on 08/04/2017 at 16:53 Approved by: Kassie Ferrer M.D. on 08/04/2017 at 16:58
[2017-08-04] MEDS: 0.9% Sodium Chloride 1,000 ML IV SCH (17:06)
--- NOTE | 2017-08-04 17:07 | NUR ---
Social Work: Initial Assessment Data: See initial assessment. Patient is a 71 year old male who was admitted on 08/03/17 for difficulty swallowing and dysphagia per H&P. Patient's insurance is Medicare and [facility] Supp. Patient's PCP is Loren Good MD. EMR reviewed. SW met with patient to discuss discharge planning. SW role explained. Patient states that he lives alone in [place] at the [facility]. Patient states that he has been living there for 14 years. Patient states that he is I at baseline and is able to perform all ADLs and care needs. Patient states that he has a cane but only uses it for stability when he becomes dizzy. Patient states that he is able to drive however, he does not have a vehicle. Patient denies having a hx of home health services or SNF. Patient denies having shelter care insurance or VA benefits. Patient states that he considers his sister Evie to be a good source of support for him. Patient denies having a DPOA or AD at this time. SW has provided patient with AD resources per his request. Upon discharge, patient states that his sister will transport him home. SW has provided patient with a discharge planning checklist booklet and encouraged him to call with any questions or concerns. Phone number provided. SW will continue to follow. Assessment: Patient from home where he lives alone. Plan: PT and OT have evaluated patient and recommendation has been made for home with no needs. ST has evaluated patient and recommendation has been made for outpatient ST. Patient will likely discharge home when medically stable. Transportation will be provided by patient's sister. SW will continue to follow for additional needs. NAYELY Muhammad Addendum: 08/04/17 at 1717 by HUGO ORO Amended: Links added.
--- NOTE | 2017-08-04 18:53 | NUR ---
Activity Pt up to chair for meals, ambulating independently in room. Pt clears throat frequently throughout shift, can be heard bringing up phlegm. Does not seem to cough or choke during meals. Pt aware of own swallowing ability, eats meals very slowly, one bite at a time. Currently resting comfortably in bed, voices no complaints.
--- NOTE | 2017-08-04 20:17 | NUR ---
Case Management: Attempted to provide GUILLAUME at 1945--room dark, patient sleeping soundly. Will have to provide tomorrow am. Lata Graves RN
[2017-08-04 20:25] LABS: APPEARANCE,URINE CLEAR (CLEAR,HAZY); COLOR,URINE STRAW (YELLOW); OCCULT BLOOD,URINE NEGATIVE (NEGATIVE); UROBILINOGEN,URINE NORMAL (NORMAL)
--- NOTE | 2017-08-04 20:35 | PCM.PNMED ---
Subjective Date of Service Aug 04, 2017 Subjective Says he is taking soft diet, medications., no abdominal pain or diarrhea today. 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, LE L<R, missing left thumb Neuro: left eye poorly reactive, shoulder strength symmetric, altered sensation over left side of face Abd: Flat, non distended Ext: No edema Psych: No anxiety IVs and Medications Medications Reviewed: Medications were reviewed in detail Lab and Diagnostics Result Diagram: 08/03/17165408/03/171654 Assessment & Plan 72-year-old male with history of recent acute right occipital infarct less than one months ago at which time the MRI was also notable for "old, small, left occipital infarcts" had symptoms of visual changes by seeing spots as well as left sided paraesthesia. He is a very poor historian but seems to have presented to hospital today due dysphagia # Acute Dysphagia, POA -- CVA vs GERD vs Anxiety in DDX - Tele monitoring: No overnight events - Continue with ASA and Plavix - Continue with Statin -Restart home medications for blood pressure as patient has been symptomatic for 3-4 days - Per ED neurology consulted. Will followup with further recommendations, Dr. Reed was contacted, she will see the patient. - brain MR, CTA of neck/brain not yet done because last night they had a question that they could not resolve: CTA was performed this a.m. no evidence of acute process. - Echocardiogram this a.m. showed "aortic sclerosis without stenosis agitated 7 study was not available for review so cannot definitely exclude PFO no changes from 05/11/2017" - PT/OT/ST": ST recommends o/p ST, physical therapy recommended outpatient physical therapy - ST recommends mech soft, thin liquids # Chronic COPD. Stable - Nebs/inhalers prn # Chronic Hypertension presumed stable - Restarted home meds # History of depression. Stable - Continue with home dose Fluoxetine # Abdominal pain - According to patient this is a chronic issue - Continue with supportive care for now - If persist consider further imaging Expected length of hospital stay at this time is less than 2 midnights GI Prophylaxis: Not indicated VTE Prophylaxis: Will hold off till MR stroke is cleared Resuscitation Status: CPR: Attempt Resuscitation (discussed and verified with patient) ADM: Sister Evie Saha [phone] Resuscitation Status: CPR: Attempt Resuscitation Time spent 25 min Tabatha Hsieh DO Aug 04, 2017 07:43
[2017-08-05 01:11] VITALS: BP 147/63; PULSE 59; RESP 18; O2SAT 99
[2017-08-05] MEDS: 0.9% Sodium Chloride 1,000 ML IV SCH (02:51)
--- NOTE | 2017-08-05 05:42 | NUR ---
Shift note uneventful night no c/o other than minor H/A "that's always there!" Aware of own swallowing abilities and cautious up ind
[2017-08-05 05:59] VITALS: BP 138/54; PULSE 66; RESP 18; O2SAT 97
[2017-08-05 06:20] VITALS: PULSE 66
[2017-08-05 08:00] VITALS: PULSE 68
[2017-08-05 08:36] VITALS: BP 117/62; PULSE 78; RESP 19; O2SAT 97
--- NOTE | 2017-08-05 11:52 | NUR ---
Off Unit: Patient transported via wheelchair to MRI accompanied by transporter @ approx 1145. No apparent distress noted at time of transport.
[2017-08-05 12:30] VITALS: BP 127/63; PULSE 82; RESP 18; O2SAT 99
--- NOTE | 2017-08-05 12:55 | DRSVH ---
PROCEDURE: MRI BRAIN WITHOUT CONTRAST ([id number]) INDICATIONS: r/o acute/subacute stroke TECHNIQUE: Non-contrast axial T1 spin echo, axial T2 fast spin echo, sagittal and axial FLAIR, coronal T2 fast s pin echo, axial gradient echo, axial diffusion and ADC through the brain. COMPARISON: [facility], MR, MR BRAIN WO CON, 03/31/2017, 13:50. FINDINGS: Image quality: Excellent. CSF spaces: Ventricles appear symmetric in size and shape. Basal cisterns are patent. No extra-axi al fluid collections. Brain: No intracranial bleeds or mass effects. There is cerebral volume loss for age. There are mi ld periventricular and deep white matter chronic small vessel ischemic changes. Brainstem appears no rmal. Small chronic left occipital lobe infarct. Diffusion-weighted images show no acute ischemic in sults. No chronic ischemic insults. Normal intravascular flow voids are present. Skull and face: Calvarial bone marrow is normal in signal. Orbits are normal. Sinuses: Mild right maxillary sinus petrosal thickening. Sinuses and mastoids are otherwise clear. IMPRESSION: 1. No acute process. No recent infarct. 2. Mild volume loss and small vessel ischemic disease. 3. Small chronic left occipital lobe infarct. Dictated by: Kassie Ferrer M.D. on 08/05/2017 at 12:32 Approved by: Kassie Ferrer M.D. on 08/05/2017 at 12:53
--- NOTE | 2017-08-05 14:08 | PCM.DIMED ---
Discharge Instructions Date of Service Aug 05, 2017 Dates of Hospitalization Aug 03, 2017 at 18:08 Discharge Diagnosis Discharge Diagnosis Dysphagia, Hx of CVA, depression, anxiety, hyperlipidemia Diet Discharge Diet: Other ([facility] soft) Activity Discharge Activity: No restrictions Call your provider Call your provider for: Fever or Chills, Shortness of breath, Bleeding, Chest pain, Vomitting, Excessive diarrhea, Weakness (unilateral) Patient Instructions Follow-up plan Please f/u with outpatient Speech Therapy as recommended by the [facility] ST F/U with cardiology to obtain a holter monitor in one week. Please f/u with Dr. Reed in 2-3 weeks F/U with PCP in 2-3 weeks Tabatha Hsieh DO Aug 05, 2017 14:08
--- NOTE | 2017-08-05 14:37 | NUR ---
Social Work: Discharge / Disciplinary Rounds Data: EMR reviewed. Patient is on day 2 of hospitalization for difficulty swallowing and dysphagia per H&P. Patient was discussed in morning rounds. Patient has been deemed medically stable for discharge today. MD has ordered home health RN 3x a week for patient. SW visited patient's room to discuss options for home health. Home health choice list provided. Patient informed SW that he would like to think about home health services some more before making a final decision. Patient states that he has two cats that live with him and are not friendly to others. SW informed patient that the MD has ordered this service and feels that it will greatly benefit patient. Patient continues to want to think about it more and does not want to accept services at this time. SW instructed patient that if he changes his mind to call the home health agency of his choice and request to start services. Patient has no additional needs at this time. Transportation will be provided by family member. Assessment: Patient is discharging today and has declined home health services. Plan: Patient is discharging home today. Transportation will be provided by family member. Patient has declined home health services at this time. Patient has no additional needs at this time. NAYELY Muhammad
--- NOTE | 2017-08-05 15:21 | NUR ---
Discharge: Patient discharged to home @ approx 1515. IV d/c'd intact. Personal belongings sent home with patient. Reviewed home medication list, d/c instructions and follow up appointments. Verbalized understanding. Escorted to main entrance via wheelchair accompanied by RIG MANAGER. No apparent distress noted at time of discharge.
--- NOTE | 2017-08-05 23:12 | PCM.DC.MED ---
Discharge Summary Date of Service Aug 05, 2017 Dates of Hospitalization Date of Hospital Admission Aug 03, 2017 at 18:08 Date of Discharge: Aug 05, 2017 Providers: Admitting Physician: Tabatha Hsieh DO Primary Care Physician: Loren Good MD Attending Physician: Tabatha Hsieh DO Diagnosis at Time of Discharge Diagnosis at Time of Discharge Dysphagia, Hx of CVA, depression, anxiety, hyperlipidemia Consultations PT/OT/ST Procedures XRay, CTs & MRIs PROCEDURE: MRI BRAIN WITHOUT CONTRAST ([id number]) INDICATIONS: r/o acute/subacute stroke IMPRESSION: 1. No acute process. No recent infarct. 2. Mild volume loss and small vessel ischemic disease. 3. Small chronic left occipital lobe infarct. Dictated by: Kassie Ferrer M.D. on 08/05/2017 at 12:32 Approved by: Kassie Ferrer M.D. on 08/05/2017 at 12:53 -- PROCEDURE: CT ANGIO HEAD AND NECK (P) INDICATIONS: dysphagia, r/o CVA IMPRESSION: 1. No change in left internal carotid artery occlusion. 2. No evidence of acute process. 3. 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 Dictated by: Kassie Ferrer M.D. on 08/04/2017 at 16:53 Approved by: Kassie Ferrer M.D. on 08/04/2017 at 16:58 PROCEDURE: CT BRAIN WITHOUT CONTRAST ([id number]) INDICATIONS: new onset difficulty swallowing, h/o stroke IMPRESSION: 1. No CT evidence of acute intracranial pathology. 2. Prominent ventricles stable the previous studies likely represents ex vacuo dilatation caused by generalized cerebral atrophy. Dictated by: Ayo Pham M.D. on 08/03/2017 at 17:04 Approved by: Ayo Pham M.D. on 08/03/2017 at 17:07 PROCEDURE: X-RAY CHEST ONE VIEW, PORTABLE ([id number]) INDICATIONS: trouble swallowing IMPRESSION: No radiographic evidence of acute cardiopulmonary pathology. Dictated by: Ayo Pham M.D. on 08/03/2017 at 17:17 Approved by: Ayo Pham M.D. on 08/03/2017 at 17:19 - Echocardiogram Report Interpretation Summary Normal sinus rhythm. Normal LV size, wall thickness, wall motion and LV systolic function. Stage I diastolic dysfunction. Aortic sclerosis without stenosis. Otherwise no significant valvular abnormalities. Agitated saline study demonstrates no evidence of PFO. No source of embolism identified. Compared to prior study 05/11/2017, no changes have occurred. Reading Physician:12:10 PM Report status: Addendum REPORT#: [id number] Brief History 72-year-old male with history of recent acute right occipital infarct 4 mo ago at which time the MRI was also notable for "old, small, left occipital infarcts " had symptoms of visual changes by seeing spots as well as left sided paraesthesia. He now states he has some left sided weakness in UE and LE, left sided facial numbness after his prior stroke. He is a very poor historian but seems to have presented to hospital today due to new onset dysphagia. Onset was 3-4 days ago. He was able to take some soup this am but nothing else. He attempted to eat this morning but couldn't keep it down. He has chronic diarrhea, says he has seen GI for it but they scoped him (both EGD and colonoscopy) and no problems were found. He denies fever, diarrhea, or any other symptoms at this time. He has had about 40lb weight loss over the past 2 years. He says he has been compliant with his medications including taking Aspirin and Plavix though he is unable to eat. He says he did not take his medications today due to having to go to neurology appt. Dr. Wilks has seen him and sent him to the ED. Patient was supposed to receive a holter monitor from cardiology , he apparently has not and Dr. Mulligan was concerned patient may have had paroxysmal episodes of Afib. 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 Patient also has hx of vascular disease of celiac trunk. He has chronic abdominal pain. US echo from 05/01 showed EF of 55-60%, Trace MR, mild TR. Brain MRI 03/31 showed new right occipital lobe infarct. In the ED, CT Head was NAD, ventricular prominence and cerebral atrophy were noted. Lab work is essentially unremarkable. Hospital Course 72-year-old male with history of recent acute right occipital infarct less than one months ago at which time the MRI was also notable for "old, small, left occipital infarcts" had symptoms of visual changes by seeing spots as well as left sided paraesthesia. He is a very poor historian but seems to have presented to hospital today due dysphagia # Acute Dysphagia, POA -- CVA vs GERD vs Anxiety in DDX - Tele monitoring: No overnight events - Continue with ASA and Plavix - Continue with Statin -Restart home medications for blood pressure as patient has been symptomatic for 3-4 days - Per ED neurology consulted. Will followup with further recommendations, Dr. Reed was contacted - brain MR, CTA of neck/brain not yet done because last night they had a question that they could not resolve: CTA was performed this a.m. no evidence of acute process. - Echocardiogram this a.m. showed "no PFO, no changes from 05/11/2017" - PT/OT/ST": ST recommends o/p ST, physical therapy recommended outpatient physical therapy - ST recommends mech soft, thin liquids -- MRI showed no acute infarct that is new -- The patient was offered home health care, as he expressed concern about his fluids intake. He declined. -- Called and notified Dr. Reed's office of patient's discharge # Chronic COPD. Stable - Nebs/inhalers prn # Chronic Hypertension presumed stable -Home Medications were given # History of depression. 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, LE L<R, missing left thumb Neuro: left eye poorly reactive, shoulder strength symmetric, altered sensation over left side of face Abd: Flat, non distended Ext: No edema Psych: No anxiety Test 08/03/17 16:55 08/03/17 17:08 08/04/17 18:08 08/04/17 20:12 White Blood Count 7.6th/mm3 (3.8-10.1) Red Blood Count 4.12mil/mm3 (4.40-5.80) Hemoglobin 13.6g/dL (13.8-17.2) Hematocrit 40.1% (41.0-50.0) Mean Corpuscular Volume 97.3fL (81-100) Mean Corpuscular Hemoglobin 33.0pg (27.0-35.0) Mean Corpuscular Hemoglobin Concent 33.9% (32.0-37.0) Red Cell Distribution Width 12.8% (12.3-15.4) Platelet Count 206bil/L (150-400) Neutrophils (%) (Auto) 69.6% (40-74) Lymphocytes (%) (Auto) 18.1% (14-46) Monocytes (%) (Auto) 10.4% (4-12) Eosinophils (%) (Auto) 1.1% (0-5) Basophils (%) (Auto) 0.5% (0-3) Prothrombin Time 10.9sec (8.1-12.5) Prothromb Time International Ratio 1.02ratio Activated Partial Thromboplast Time 24.5sec (22.8-33.0) Sodium Level 136mEq/L (134-144) Potassium Level 4.0mEq/L (3.5-5.2) Chloride Level 97mEq/L (97-108) Carbon Dioxide Level 22mmol/L (18-29) Blood Urea Nitrogen 12mg/dL (8-27) Creatinine 0.86mg/dL (0.76-1.27) Estimat Glomerular Filtration Rate 93mL/min (>59) Glucose Level 98mg/dL (60-99) Hemoglobin A1c 4.6% (4.8-5.6) Calcium Level 9.0mg/dL (8.5-10.1) Total Bilirubin 0.8mg/dL (0.0-1.2) Aspartate Amino Transf (AST/SGOT) 34U/L (0-50) Alanine Aminotransferase (ALT/SGPT) 20U/L (0-44) Alkaline Phosphatase 91U/L (25-160) Troponin T < 0.010ug/L (0.0-0.011) Total Protein 7.0g/dL (6.4-8.4) Albumin 3.9g/dL (3.4-5.0) Triglycerides Level 40mg/dL (0-149) Cholesterol Level 144mg/dL (100-199) LDL Cholesterol, Calculated 92.000mg/dL (0-99) VLDL Cholesterol 8.000mg/dL HDL Cholesterol 44mg/dL (>39) Cholesterol/HDL Ratio 3.27 (0.0-4.4) Hold [place]on Top Tube Received (Received) Hold Urine Received (Received) Urine Color Straw (YELLOW) Urine Appearance Clear (CLEAR,HAZY) Urine pH 6.0 (5.0-8.0) Urine Specific [place] <1.005 (1.003-1.035) Urine Protein Negativemg/dL (NEG,TRACE) Urine Glucose (UA) Negativemg/dL (NEGATIVE) Urine Ketones Negativemg/dL (NEGATIVE) Urine Occult Blood Negative (NEGATIVE) Urine Nitrite Negative (NEGATIVE) Urine Bilirubin Negative (NEGATIVE) Urine Urobilinogen Normalmg/dL (NORMAL) Urine Leukocyte Esterase Negative (NEGATIVE) Urine RBC 0-2/hpf (0-2) Urine WBC 0-5/hpf (0-5) Urine Epithelial Cells Occasional/hpf (NONE-MOD) Urine Crystals None seen (NONE SEEN) Urine Bacteria None/hpf (NONE-FEW) Urine Hyaline Casts None/lpf (NONE) Urine Granular Casts None seen (NONE SEEN) Urine Waxy Casts None seen (NONE SEEN) Urine Red Blood Cell Casts None seen (NONE SEEN) Urine White Blood Cell Casts None seen (NONE SEEN) Urine Mucus None seen (None Seen) Urine Trichomonas None seen (NONE SEEN) Urine Yeast None (NONE SEEN) Urinalysis Comment None Urine Culture Reflexed Not indicated Discharge Medications Discharge Medications Aspirin Chew (Aspirin Chew) 81 Mg Chew 81 MG PO DAILY Prescribed by: LAURIE BALBUENA MD Atorvastatin Calcium (Atorvastatin Calcium) 80 Mg Tablet 80 MG PO DAILY ( Reported) Cholecalciferol (Vitamin D3) (Vitamin D3) 2,000 Unit Tablet 2,000 UNIT PO DAILY (Reported) Clopidogrel (Clopidogrel) 75 Mg Tablet 75 MG PO DAILY Prescribed by: LAURIE BALBUENA MD Fluoxetine (Prozac) 10 Mg Capsule 10 MG PO DAILY Prescribed by: LAURIE BALBUENA MD Lisinopril (Lisinopril) 10 Mg Tablet 10 MG PO BID Prescribed by: LAURIE BALBUENA MD Montelukast (Montelukast) 10 Mg Tablet 10 MG PO QPM (Reported) Multivitamin (Multivitamins) 1 Each Capsule 1 EACH PO DAILY (Reported) As needed Albuterol Sulfate (Ventolin HFA Inhaler) 200 Puff/18 Gm Inhaler 2 PUFFS INH q4- 6 hours PRN PRN For Shortness of Breath (Reported) Docusate Sodium (Colace) 100 Mg Capsule 100 MG PO BID PRN PRN For Constipation Prescribed by: HONORIO EVERETT DO Fluticasone Propionate (Flovent HFA 44 mcg) 10.6 Gm Aer.w.adap 1 PUFF INH BID PRN PRN For Shortness of Breath (Reported) Followup Plan Follow-up plan Please f/u with outpatient Speech Therapy as recommended by the [facility] F/U with cardiology to obtain a holter monitor in one week. Please f/u with Dr. Reed in 2-3 weeks F/U with PCP in 2-3 weeks O/P Physical Therapy Discharge Diet: Other ([facility] soft) Discharge Activity: No restrictions Time spent Greater than 30 minutes was spent in preparation of discharge with greater than 50% of that time dedicated to patient counseling and coordination of care. Tabatha Hsieh DO Aug 05, 2017 14:09
--- NOTE | 2017-08-13 11:08 | PCM.ADCARE ---
Advance Care Planning Note Purpose of Encounter: To understand patient's goals of care by discussing his current health, treatments and correction prognosis Parties in Attendance: Patient, Dr. Beatriz Hsieh Decisional Capacity: Good Subjective: I reviewed his hx of CVA, COPD, HTN and poor functional status and options for ongoing aggressive care including intubation and potential mechanical ventilation should he be unable to breath on his own; also discussed who would speak on his behalf should he be unable to do so and discussed what conversation he had had with his family so they understand his desires if such situation occurred now or in the future. Objective: Patient lives out of a motel and declined HH RN help in the past. He is now having problems eating due to dysphagia, which is thought to require o/p speech/ swallow therapy. He is losing weight, has poor support system. Plan: Patient wishes to be full code. We will help him by working him up for stroke or r/o, assist him in obtaining the services he will need to improve his health status. CODE STATUS: Full Code: ADM: Sister Evie Saha [phone] Time Spent Adv.Care Planning: Total time spent [id number] and education directly related to advanced planning 30 min Adv. Care Plan Documenation: As above and also as documented in H&P Tabatha Hsieh DO Aug 03, 2017 23:32
== END 2017-08-05 15:23 | disposition home or self-care (01) ==
LOC: SED 16:19 → MPC 18:08
PROVIDERS: ADMIT Family Medicine; ATTEND Family Medicine
DX: R13.10 Dysphagia, unspecified (principal); F32.9 Major depressive disorder, single episode, unspecified; F41.9 Anxiety disorder, unspecified; E78.5 Hyperlipidemia, unspecified; I69.354 Hemiplegia and hemiparesis following cerebral infarction affecting left non-dominant side; J44.9 Chronic obstructive pulmonary disease, unspecified; I10 Essential (primary) hypertension; R10.9 Unspecified abdominal pain; B19.20 Unspecified viral hepatitis C without hepatic coma; N40.0 Benign prostatic hyperplasia without lower urinary tract symptoms; M54.5 Low back pain; Z87.891 Personal history of nicotine dependence; Z79.51 Long term (current) use of inhaled steroids; Z79.02 Long term (current) use of antithrombotics/antiplatelets; Z79.82 Long term (current) use of aspirin
CPT/HCPCS: 36415; 70450; 70496; 70498; 70551; 71010; 80053; 80061; 81000; 83036; 84484; 85025; 85610; 85730; 92526; 92610; 93005; 96374; 96376; 97161; 97167; 99285; C8929; G0378; G0463; G8996; G8997; J7030; Q9967

== ENCOUNTER 2017-08-11 22:28 | Emergency (ER) | payer MEDICARE, MEDICAID ==
[~2017-08-11] VITALS: Ht 167.6 cm; Wt 48.2 kg
[~2017-08-11 22:28] MED LIST changes: -ACET-171 PO; +ALBU18HF INH; -ALBU8.5H2 INHALATION; +CHOL200025 PO; -CHOL500051 PO; -DOXA1TAB2 PO; -FINA5TAB9 PO; +FLUT10.62 INH; +MONT10TA23 PO
[2017-08-11 22:33] VITALS: BP 164/83; PULSE 90; RESP 16; O2SAT 99
--- NOTE | 2017-08-11 22:51 | ED.REPORT ---
HPI-Syncope Date of Service Aug 11, 2017 ED Provider: Jabier Loving MD The patient is a 72 year old male with a history of asthma, scoliosis, CVA x2, COPD, HTN, and GERD presenting to the ED complaining of near-syncope onset earlier tonight while he was trying to eat a cracker. He claims that he felt " an explosion" of chills that rushed up from his chest, then down to his feet. The patient reports that this has happned before and it just comes and goes. Associated symptoms include solid and food dysphagia for about a week, and temporary blurred vision. Denied symptoms include nausea, vomiting, shortness or breath, or loss of consciousness. Nursing Notes Stated Complaint: FEEL LIKE PASSING OUT Chief Complaint: General Complaint Nursing Notes Reviewed: Yes Allergies: Coded Allergies: tamsulosin (Verified Adverse Reaction, Intermediate, HYPOTENSION, 05/09/17) Scheduled Aspirin Chew (Aspirin Chew) 81 Mg Chew 81 MG PO DAILY Atorvastatin Calcium (Atorvastatin Calcium) 80 Mg Tablet 80 MG PO DAILY Cholecalciferol (Vitamin D3) (Vitamin D3) 2,000 Unit Tablet 2,000 UNIT PO DAILY Clopidogrel (Clopidogrel) 75 Mg Tablet 75 MG PO DAILY Fluoxetine (Prozac) 10 Mg Capsule 10 MG PO DAILY Lisinopril (Lisinopril) 10 Mg Tablet 10 MG PO BID Montelukast (Montelukast) 10 Mg Tablet 10 MG PO QPM Multivitamin (Multivitamins) 1 Each Capsule 1 EACH PO DAILY Omeprazole (Omeprazole) 20 Mg Tablet.dr 20 MG PO BID Scheduled PRN Albuterol Sulfate (Ventolin HFA Inhaler) 200 Puff/18 Gm Inhaler 2 PUFFS INH q4- 6 hours PRN PRN For Shortness of Breath Docusate Sodium (Colace) 100 Mg Capsule 100 MG PO BID PRN PRN For Constipation Fluticasone Propionate (Flovent HFA 44 mcg) 10.6 Gm Aer.w.adap 1 PUFF INH BID PRN PRN For Shortness of Breath General Time Seen by Provider: 22:48 Chief Complaint Almost passed out Hx Obtained From: Patient Arrived By: Walk-in Onset Occurred: 1 - 4 hours ago Symptom Duration: Waxes and wanes Immunizations: Unknown Recent Healthcare: Recent doctor visit, Recent hospitalization Similar Sx Previous: Yes Past Medical History Past Medical History Notes: Cardiology: [facility] PCP: Dr. 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 abdomen and pelvis, but without clinical findings of SMA syndrome Hepatitis C Past Surgical History Colonoscopy Endoscopy Hand surgery Thumb amputation Reports: Cataract surgery Family History Reports: Coronary artery disease Smoking History Former Smoker Social History Alcohol Use: Denies alcohol use Drug Use: Denies drug use Other Social History: Good social support, Lives alone, Local resident Ambulatory Status Independent Review of Systems Constitutional: Reports: Chills Eyes: Reports: Blurred bilateral Respiratory: Denies: Shortness of breath GI: Reports: Dysphagia (solids and fluids), Denies: Nausea, Vomiting Neurologic: Reports: Lightheaded, Denies: Change LOC Complete sys rev & neg: except as marked. Physical Exam Initial Vital Signs Vital Signs (First) Date Time Temp Pulse Resp B/P Pulse Ox O2 Delivery O2 Flow Rate FiO2 08/11/17 22:33 36.9 90 16 164/83 99 Room Air Initial VS: Reviewed, Vital signs normal Head / Eyes: Atraumatic, Normocephalic ENT: Mucous membranes moist Neck: Supple, Full range of motion Back: No CVA tenderness Lymphatic: No lymphadenopathy Upper Extremities: Vascular intact, Neuro intact Skin: Warm, Dry Psychiatric: Mood/affect normal, Behavior normal General/Constitutional: Awake, Alert, No acute distress Thin Cachectic looking; unchanged from multiple visits previously Respiratory / Chest: Atraumatic, Breath sounds NL, Breath sounds = bilat Cardiovascular: Heart rate NL, Regular rhythm, Heart sounds NL, No gallop, No murmurs, No rubs Lower Extremity / Pelvis / MS: Atraumatic, Inspection NL Neurologic: Oriented X3, Speech NL, No motor deficits, No sensory deficits Abdomen: Atraumatic, Soft Abdomen slightly tender Interpretation & Diagnostics Lab Results Interpretation Result Diagram: 08/11/17230108/11/172301 Test 08/11/17 23:02 White Blood Count 8.3th/mm3 (3.8-10.1) Red Blood Count 4.07mil/mm3 (4.40-5.80) Hemoglobin 13.5g/dL (13.8-17.2) Hematocrit 39.8% (41.0-50.0) Mean Corpuscular Volume 97.8fL (81-100) Mean Corpuscular Hemoglobin 33.2pg (27.0-35.0) Mean Corpuscular Hemoglobin Concent 33.9% (32.0-37.0) Red Cell Distribution Width 13.0% (12.3-15.4) Platelet Count 233bil/L (150-400) Neutrophils (%) (Auto) 69.4% (40-74) Lymphocytes (%) (Auto) 18.0% (14-46) Monocytes (%) (Auto) 11.5% (4-12) Eosinophils (%) (Auto) 0.6% (0-5) Basophils (%) (Auto) 0.5% (0-3) Sodium Level 141mEq/L (134-144) Potassium Level 3.9mEq/L (3.5-5.2) Chloride Level 99mEq/L (97-108) Carbon Dioxide Level 29mmol/L (18-29) Blood Urea Nitrogen 10mg/dL (8-27) Creatinine 0.96mg/dL (0.76-1.27) Estimat Glomerular Filtration Rate 82mL/min (>59) Glucose Level 100mg/dL (60-99) Calcium Level 9.2mg/dL (8.5-10.1) Magnesium Level 2.1mg/dL (1.6-2.6) Total Bilirubin 0.7mg/dL (0.0-1.2) Aspartate Amino Transf (AST/SGOT) 31U/L (0-50) Alanine Aminotransferase (ALT/SGPT) 21U/L (0-44) Alkaline Phosphatase 91U/L (25-160) Troponin T 0.010ug/L (0.0-0.011) Total Protein 7.4g/dL (6.4-8.4) Albumin 4.3g/dL (3.4-5.0) ECG Interpretation ECG Interpretation: Rate 82 Probable anteroseptal infarct, old Time: 22:56 Interpreted by: ED physician Normal ECG Interpretation: Normal sinus rhythm X-Ray Chest Interpretation View: Portable, 1 view Interpretation / Wet Read by: Wet read ED physician NL X-Ray Chest Findings: No acute disease Re-Eval/Medical Decision Med Decision/Clinical Course 72-year-old with chronic dysphagia presents with more dysphagia reflux episode tonight. He is due for a barium swallow, but that has not been scheduled. I provided him with a paper order and instructions for getting this scheduled, as well as instructions to contact his PCP to expedite his insurance coverage. No evidence of cardiac source for this obvious reflux pain. Discharged in stable condition. Re-Evaluation/Progress : Time of Eval: 00:09 Re-Evaluation/Progress Note: Patient rechecked. Discussed lab results and plan to discharge. The patient understands and agrees with the plan. All questions addressed at this time. Counseled Regarding: Diagnosis, Lab results, Need for follow-up, When/why to return to ED Discharge & Departure Impression: Primary Impression: Difficulty swallowing Dysphagia type: unspecified Qualified Code: R13.10 - Dysphagia, unspecified Additional Impression: Dysphagia Dysphagia type: unspecified Qualified Code: R13.10 - Dysphagia, unspecified Disposition: Home Discharge Condition All VS Reviewed: Yes Condition: Improved Patient Instructions: Chronic Dysphagia (ED), Dysphagia (ED) Additional Instructions: The source of this pain is almost surely esophageal. Follow-through with your barium swallow as scheduled. Continue with soft diet only. Avoid crackers and other similar hard solids. Return if any immediate issues. Referrals: Loren Good MD (PCP) Scribe Attestation Portions of this note were transcribed by Yobany Garcia. I, Dr. Loving personally performed the history, physical exam and medical decision-making; I reviewed and confirmed the accuracy of the information in the transcribed note. Signed by: Chiki Ellis, 08/11/2017 copies to: Loren Good MD, Christopher W MD Aug 11, 2017 22:51 Aug 11, 2017 23:08
[2017-08-11 23:06] LABS: BASOPHILS % (AUTO) 0.5 % (0-3); EOSINOPHILS % (AUTO) 0.6 % (0-5); MONOCYTES % (AUTO) 11.5 % (4-12); Mean Corpuscular Hemoglobin 33.2 pg (27.0-35.0); Mean Corpuscular Volume 97.8 fL (81-100); NEUTROPHILS % (AUTO) 69.4 % (40-74); Platelet Count 233 bil/L (150-400)
[2017-08-11 23:51] LABS: Magnesium 2.1 mg/dL (1.6-2.6); TROPONIN T 0.01 ug/L (0.0-0.011)
[2017-08-12] MEDS ORDERED: OMEP20TA86 PO (00:06)
[2017-08-12 00:26] VITALS: BP 121/50; PULSE 63; RESP 18; O2SAT 97
--- NOTE | 2017-08-12 08:26 | DRSVH ---
PROCEDURE: X-RAY CHEST ONE VIEW, PORTABLE ([id number]) INDICATIONS: CHEST paiN TECHNIQUE: One view of the chest was acquired. COMPARISON: [facility], CR, XR CHEST 1VW (PORTABLE), 08/03/2017, 16:58. FINDINGS: Surgical changes and devices: None. Lungs and pleura: No pleural effusions or pneumothorax. Lungs are clear. Calcified granulomas proje ct in the right upper lobe. Mediastinum: Mediastinal contours appear normal. Heart size is normal. Bones and chest wall: No suspicious bony lesions. Overlying soft tissues appear unremarkable. Later al curvature of the spine IMPRESSION: No acute disease. Dictated by: Tone Hdez M.D. on 08/12/2017 at 8:24 Approved by: Tone Hdez M.D. on 08/12/2017 at 8:25
== END 2017-08-12 00:15 | disposition home or self-care (01) ==
LOC: SED 22:33
DX: R13.10 Dysphagia, unspecified (principal); R55 Syncope and collapse; I10 Essential (primary) hypertension; J44.9 Chronic obstructive pulmonary disease, unspecified; E78.5 Hyperlipidemia, unspecified; F41.8 Other specified anxiety disorders; B19.20 Unspecified viral hepatitis C without hepatic coma; Z79.82 Long term (current) use of aspirin; Z79.01 Long term (current) use of anticoagulants; Z87.01 Personal history of pneumonia (recurrent); Z86.73 Personal history of transient ischemic attack (TIA), and cerebral infarction without residual deficits; Z87.891 Personal history of nicotine dependence; Z88.8 Allergy status to other drugs, medicaments and biological substances